=== PATIENT | female | born 1945 | race Caucasian/White ===

== ENCOUNTER → 2017-06-18 16:47 | Outpatient (CLI) | payer BC, SELFPAY ==
[2017-06-18 15:55] VITALS: BP 132/68; BMI 31.0
--- NOTE | 2017-06-18 16:49 | RAD_ITS ---
XR Chest 2 Views INDICATION: SHORTNESS OF BREATH, DYSPNEA COMPARISON: None FINDINGS: Heart size and pulmonary vascularity are within normal limits. The lungs are clear without evidence of airspace consolidation or pleural effusion. The osseous structures are grossly unremarkable. RAD/Chest PA and Lateral IMPRESSION: No radiographic evidence of acute intrathoracic disease. at 1925 Reported and signed by: Frances Lam MD Electronically Signed: Frances Lam MD at 20:58 EST Tel , Service support ,
== END ==
PROVIDERS: Family Provider Family Medicine; PCP Family Medicine; Visit Provider Internal Medicine Cardiovascular Disease
DX: R06.00 Dyspnea, unspecified (principal)
CPT/HCPCS: 71046

== ENCOUNTER → 2017-07-15 12:19 | Outpatient (CLI) | payer BC, SELFPAY ==
[2017-06-18 15:55] VITALS: BP 132/68; BMI 31.0
--- NOTE | 2017-07-15 12:21 | STEWCON_ITS ---
Reason For Study: DYSPNEA, CAD Stress Results Protocol: Stress Echocardiogram Maximum Predicted HR: 150 bpm Target HR: 128 bpm% Maximum Pr edicted HR: 87 % DurationHeart Rate Stage (mm:ss) (bpm) BPCom ment BASELINE 57 132/70 DEFINITY 4ML USED DURING STRESS CLYDE PROTOCOL- STAGE 1 3:00 10 8 136/74PO 99-100% CLYDE PROTOCOL- STAGE 2 3:00 13 1 138/76PO 99-100% RECOVERY 65 120/58 Stress Duration: 6:00 mm:ss Maximum Stress HR: 131 bpm Baseline Echocardiogram Findings Stress Echo Wall motion Data Resting WMIntermediate WMStress WM Resting Wall Motion Wall Motion Stress No regional wall motion No regional wall motion abnormalities noted. abnormalities noted. Ejection Fraction 40 %. Ejection Fraction 50 %. EKG Data Baseline ECG demonstrates normal sinus rhythm with a rate of 58 beats per minute. The resting blood pressure was 132/70. LBBB noted. The patient exercised according to the regular [place] protocol for a total duration of 6. The maximum heart rate attained was 131 beats per minute. This was 87% of maximum predicted heart rate. The patient exercised into stage 2 of the Lcyde protocol. During stress, there were no ST or T wave changes noted to suggest ischemia. Interpretation Summary AbNormal resting LV systolic function. Nonstenotic valves. With stress, the LV size decreased and all segments augmented normally. The LVEF increased from 40% to 45%. Negative for ischemia at 87% of MPHR and at 7 METS. patinet maintained sinus rhythm with LBBB throughout and no ovious wall motion abnormalities were noted.Contrast agent was used. Test was terminated due to leg fatigue abd good BP response was noted. Normal stress echo Ordering Physician: Mushtaq Edwards Referring Physician: Mushtaq Blum Performed By: Prema Schuster, LINDSEY, RVT
== END ==
PROVIDERS: Family Provider Family Medicine; PCP Family Medicine; Visit Provider Internal Medicine Cardiovascular Disease
DX: R06.00 Dyspnea, unspecified (principal); I25.10 Atherosclerotic heart disease of native coronary artery without angina pectoris
CPT/HCPCS: 93017; 93350; Q9957; A4216; C8928

== ENCOUNTER → 2017-07-22 07:50 | Outpatient (CLI) | payer BC, SELFPAY ==
[2017-06-18 15:55] VITALS: BP 132/68; BMI 31.0
--- NOTE | 2017-07-22 11:01 | PFT ---
INTRODUCTION: The patient is a 72-year-old female currently under the care of Dr. Edwards the presents for pulmonary function testing secondary to a diagnosis of dyspnea. Respiratory therapy reports good patient effort reports no other concerns. Bronchodilators were used during testing. INTERPRETATION: Forced expiration spirometry demonstrates no evidence of a large airways obstructive ventilatory defect. There was no significant response to aerosolized bronchodilators, based upon strict ATS criteria. Spirogram is of good quality and plateau normally. Body plethysmography was performed and reveals a trend towards hyperinflation. Diffusing capacity by single breath CO is within normal limits at 75% of predicted. IMPRESSION: These pulmonary function studies are essentially within normal limits. There are no previous PFTs available for comparison. Clinical correlation is recommended.
== END ==
PROVIDERS: Family Provider Family Medicine; PCP Family Medicine; Visit Provider Internal Medicine Cardiovascular Disease
DX: R06.00 Dyspnea, unspecified (principal)
CPT/HCPCS: 94060; 94726; 94729

== ENCOUNTER → 2017-12-01 08:05 | Outpatient (CLI) | payer MEDICARE, BC, SELFPAY ==
[2017-12-01 10:30] LABS: AST(SGOT) 32 U/L (15-37); Alanine Aminotransfer ALT/SGPT 56 U/L (13-56); Alkaline Phosphatase 79 U/L (45-117); Bilirubin, Direct 0.13 mg/dL (0.00-0.30); Cholesterol 146 mg/dL (200); High Density Lipoprotein 59 mg/dL; Triglycerides 143 mg/dL; Very Low Density Lipoprotein 29 mg/dL (5-40)
== END ==
PROVIDERS: Nurse Practitioner Family; Family Provider Family Medicine; PCP Family Medicine; Visit Provider Internal Medicine Cardiovascular Disease
DX: E78.5 Hyperlipidemia, unspecified (principal); Z79.899 Other long term (current) drug therapy
CPT/HCPCS: 36415; 80061; 80076

== ENCOUNTER → 2017-12-15 08:37 | Outpatient (CLI) | payer MEDICARE, BC, SELFPAY ==
[2017-12-15 10:50] LABS: Anion Gap 9 (5-15); BUN 15 mg/dL (7-18); BUN/Creat Ratio 19.2 RATIO (10-20); Calcium,Total 10.2 mg/dL (8.5-10.1); Chloride 105 mmol/L (98-107); Creatinine, Serum 0.78 mg/dL (0.55-1.02); EST Glomerular Filtration Rate 77 mL/min (>60); Est Glom Filt Rate - Afr Amer 94 mL/min (>60); Glucose 95 mg/dL (74-106); Potassium 3.8 mmol/L (3.5-5.1); Sodium Level 143 mmol/L (136-145); Thyroid Stim Hormone (TSH) 1.67 uIU/mL (0.358-3.74)
== END ==
PROVIDERS: Family Provider Family Medicine; PCP Family Medicine; Visit Provider Family Medicine
DX: I10 Essential (primary) hypertension (principal); E03.9 Hypothyroidism, unspecified
CPT/HCPCS: 36415; 80048; 84443

== ENCOUNTER → 2018-02-20 16:38 | Outpatient (CLI) | payer MEDICARE, BC, SELFPAY ==
--- NOTE | 2018-02-20 16:42 | RAD_ITS ---
STUDY: X-RAY CHEST REASON FOR EXAM: Female, 72 years old. post tussive emesis TECHNIQUE: Frontal and lateral views of the chest. COMPARISON: 06/18/2017 FINDINGS: Chronic appearing increased interstitial lung markings. There is no demonstrated pleural abnormality. Normal heart size. Normal mediastinum and preeti. Normal visualized pulmonary arteries. There is atherosclerotic calcification of the aortic arch with tortuosity. There are diffuse degenerative changes of the visualized thoracic spine. There is degenerative osteoarthritis of the bilateral shoulders. There is no demonstrated abnormality of the visualized soft tissue structures of the upper abdomen. RAD/Chest PA and Lateral IMPRESSION: There are no acute findings. Electronically Signed: Hill Kent MD at 17:48 EDT , Service support ,
== END ==
PROVIDERS: Family Provider Family Medicine; PCP Family Medicine; Referring Provider Family Medicine; Visit Provider Family Medicine
DX: R11.10 Vomiting, unspecified (principal)
CPT/HCPCS: 71046

== ENCOUNTER → 2018-03-27 10:17 | Outpatient (CLI) | payer MEDICARE, BC, SELFPAY ==
--- NOTE | 2018-03-27 10:20 | US_ITS ---
STUDY: THYROID ULTRASOUND REASON FOR EXAM: Female, 72 years old. Hypothyroidism. TECHNIQUE: Ultrasound evaluation of the thyroid was performed with real-time and static abdul-scale imaging. COMPARISON: September 25, 2013 FINDINGS: RIGHT LOBE: The right lobe of the thyroid gland measures 3.8 x 1.5 x 1.7 cm. There is a homogeneous echotexture. There is a grossly stable in size complex cyst within the right lobe of the gland which measures 1.3 x 0.7 x 0.8 cm. LEFT LOBE: The left lobe of the thyroid gland measures 4.3 x 1.2 x 1.6 cm. There is a homogeneous echotexture. There is a grossly stable minimally complex cystic 8.1 x 4.8 x 5.0 mm nodule. ISTHMUS: The isthmus measures 3 mm. There is a 3 x 3 x 4 mm minimally complex cystic nodule within the left isthmus that was not apparent on the prior examination. . US/Thyroid IMPRESSION: Stable bilateral minimally complex cystic thyroid nodules. New 4 mm cystic nodule within the isthmus that may reflect underlying colloid cyst. Electronically Signed: Ayleen Lou MD at 12:45 EST Tel , Service support ,
== END ==
PROVIDERS: Family Provider Family Medicine; PCP Family Medicine; Referring Provider Family Medicine; Visit Provider Family Medicine
DX: E03.9 Hypothyroidism, unspecified (principal)
CPT/HCPCS: 76536

== ENCOUNTER → 2018-05-25 09:28 | Outpatient (CLI) | payer MEDICARE, BC, SELFPAY ==
[2018-05-25 09:28] VITALS: BMI 31.0
[2018-05-25 12:18] LABS: AST(SGOT) 29 U/L (15-37); Alanine Aminotransfer ALT/SGPT 67 U/L (13-56); Albumin, Serum 3.9 g/dL (3.2-5.0); Alkaline Phosphatase 74 U/L (45-117); Bilirubin, Direct 0.08 mg/dL (0.00-0.30); Cholesterol 146 mg/dL (200); Globulin 3.1 g/dL (2.2-4.2); High Density Lipoprotein 56 mg/dL; Triglycerides 154 mg/dL; Very Low Density Lipoprotein 31 mg/dL (5-40)
== END ==
PROVIDERS: Family Provider Family Medicine; PCP Family Medicine; Referring Provider Nurse Practitioner Family; Visit Provider Nurse Practitioner Family
DX: E78.5 Hyperlipidemia, unspecified (principal)
CPT/HCPCS: 36415; 80061; 80076

== ENCOUNTER → 2018-05-29 11:00 | Outpatient (CLI) | payer MEDICARE, BC, SELFPAY ==
[2018-05-25 09:28] VITALS: BMI 31.0
[2018-05-29 12:34] LABS: Absolute Lymphocyte Count 1.79 X10^3/ul (0.83-4.51); Absolute Neutrophil Count 3.5 X10^3/uL (2.0-7.7); Basophil# 0.04 X10^3/uL; Basophil% 0.7 % (0-1); Eosinophil# 0.17 X10^3/uL; Eosinophils% 2.8 % (0-5); Hematocrit 39.6 % (37-47); Hemoglobin 12.9 g/dl (12.0-15.0); Lymphocyte # 1.79 X10^3/ul (4.0); Lymphocyte % 29.3 % (19-41); Mean Corp Hgb Conc 32.6 g/gl (32-36); Mean Corpuscular Hgb 31.7 pg (27.0-32.0); Mean Corpuscular Volume 97.3 fL (81-99); Mean Platelet Vol. 9.1 fl (6.2-12.0); Monocyte# 0.56 X10^3/uL; Monocyte% 9.2 % (0-10); Neutrophil # 3.54 X10^3/uL (2.7-7.7); Platelet Count 287 K/mm3 (150-450); RBC Distribution Width CV 14.3 % (11.6-14.6); RBC Distribution Width SD 49.3 fl (35.1-43.9); Red Blood Count 4.07 M/mm3 (4.2-5.4); White Blood Count 6.1 K/mm3 (4.4-11.0)
[2018-05-29 12:35] LABS: POSITIVE COUNT NO; POSITIVE DIFFERENTIAL NO; POSITIVE MORPHOLOGY NO
[2018-05-29 13:05] LABS: Free T3 2.5 pg/mL (2.18-3.98); T4 Total, Thyroxin 7.9 ug/dL (4.8-13.9); Thyroid Stim Hormone (TSH) 1.26 uIU/mL (0.358-3.74)
--- OUTSIDE RECORDS SUMMARY | 2018-08-02 20:51 | XMS RPT_ITS ---
:1945 Author Organization OHIP Support Name Relationship Address Phone MOTTER, CLINTON Unavailable [address] + [place] [address] R Unavailable Unavailable Unavailable MOTTER, CLINTON Unavailable [address] + [place] [address] R Unavailable Unavailable Unavailable MOTTER, CLINTON Unavailable [address] + [place] [address] R Unavailable Unavailable Unavailable MOTTER, CLINT[place] Unavailable [address] + [place] [address] R Unavailable Unavailable Unavailable MOTTER, [place] Unavailable [address] + [place] [address] R Unavailable Unavailable Unavailable MOTTER, CLINT[place] Unavailable [address] + [place] [address] R Unavailable Unavailable Unavailable MOTTER, CLINTON Unavailable [address] + [place] [address] R Unavailable Unavailable Unavailable [place] Unavailable [address] + [place] [address] MOTTER, CLINTON Unavailable [address] + [place] [address] [place] Unavailable [address] + [place] [address] MOTTER, CLINTON Unavailable [address] + [place] [address] [place] Unavailable [address] + [place] [address] MOTTER, CLINTON Unavailable [address] + [place] [address] [place] Unavailable [address] + [place] [address] MOTTER, CLINTON Unavailable [address] + [place] [address] [place] Unavailable [address] + [place] [address] MOTTER, [place] Unavailable . + [place] Unavailable [address] + [place] [address] MOTTER, [place] Unavailable . + [place] Unavailable [address] + [place] [address] MOTTER, [place] Unavailable . + [place], [place] Care Team Providers Name Role Phone Aida, Otis Alonzo Attending Unavailable Roof, Otis Alonzo Referring Unavailable Blum, Mushtaq Primary Care Unavailable Blum, Mushtaq Attending Unavailable Blum, Mushtaq Primary Care Unavailable SyTara keen Attending Unavailable Moodispaw, Mushtaq Attending Unavailable Blum, Mushtaq Referring Unavailable Blmu, Mushtaq Primary Care Unavailable Moodispaw, Mushtaq Attending Unavailable Blum, Mushtaq Primary Care Unavailable Moodispaw, Mushtaq Attending Unavailable Moodispaw, Mushtaq Referring Unavailable Blum, Mushtaq Primary Care Unavailable Moodispaw, Mushtaq Attending Unavailable Moodispaw, Mushtaq Referring Unavailable Blum, Mushtaq Primary Care Unavailable Tara Irby Attending Unavailable Blum, Mushtaq Referring Unavailable Mariano Smith D.O. Attending Unavailable Moodispaw, Mushtaq Referring Unavailable JorgeJeremy Attending Unavailable Moodispaw, Mushtaq Referring Unavailable Moodispaw, Mushtaq Attending Unavailable Moodispaw, Mushtaq Referring Unavailable Blum, Mushtaq Primary Care Unavailable Blum, Mushtaq Attending Unavailable Blum, Mushtaq Primary Care Unavailable Otis Hemphill Attending Unavailable Otis Hemphill Referring Unavailable Blum, Mushtaq Primary Care Unavailable Blum, Mushtaq Attending Unavailable Blum, Mushtaq Referring Unavailable Blum, Mushtaq Primary Care Unavailable PROBLEMS PROBLEMS DATE TYPE CONDITION / CODE ATTENDING STATUS SOURCE 12/17/2017 Unknown E03.9 - Mushtaq Blum Active [place] Hypothyroidism, Community unspecified / Hospital E03.9(ICD-10) Repository 12/17/2017 Unknown I10 - Essential BlumMushtaq emmanuel Active [place] (primary) Community hypertension / Hospital I10(ICD-10) Repository 12/17/2017 Unknown E78.5 - MoodMushtaq contreras Active [place] Hyperlipidemia, Community unspecified / Hospital E78.5(ICD-10) Repository 08/11/2017 Unknown R06.00 - Dyspnea, Mariano Smith, Active [place] unspecified / D.O. Community R06.00(ICD-10) Hospital Repository 08/12/2017 Unknown R06.02 - Shortness Jorge, [place] Active [place] of breath / Community R06.02(ICD-10) Hospital Repository PROCEDURES PROCEDURES No Procedure Records FoundRESULTS RESULTS CBC W/DIFF, AUTOMATED Collected: 05/29/2018 Status: F Source: [place] 11:02 AM [facility] REPOSITORY TYPE CODE TESTS RESULT OUT OF RANGE REFERENCE UNITS LAB L100.1000 4.4-11.0 K/mm3 Normal WBC 6.1 LAB L100.1200 4.2-5.4 M/mm3 Low RBC 4.07 LAB L100.1300 12.0-15.0 g/dl Normal HGB 12.9 LAB L100.1400 37-47 % Normal HCT 39.6 LAB L100.1500 81-99 fL Normal MCV 97.3 LAB L100.1600 27.0-32.0 pg Normal MCH 31.7 LAB L100.1700 32-36 g/gl Normal MCHC 32.6 LAB L100.1810 11.6-14.6 % Normal RDW CV 14.3 LAB L100.1820 35.1-43.9 fl High RDW SD 49.3 LAB L100.1900 150-450 K/mm3 Normal PLT 287 LAB L100.2000 6.2-12.0 fl Normal MPV 9.1 LAB L100.2100 47-70 % Normal NEUT% 58.0 LAB L100.2200 19-41 % Normal LY% 29.3 LAB L100.2300 0-10 % Normal MONO% 9.2 LAB L100.2400 0-5 % Normal EO% 2.8 LAB L100.2500 0-1 % Normal BASO% 0.7 LAB L100.2550 0.0-0.9 % Normal IM GRAN % 0.000 Result Comment: IG% - Immature Granulocytes (promyelocytes, myelocytes and metamyelocytes) > 1% indicates that a LEFT SHIFT is Present. LAB L100.2620 2.0-7.7 X10 3/uL Normal Absolute Neut 3.5 LAB L100.2720 0.83-4.51 X10 3/ul Normal Absolute Lymph 1.79 Performed By: #### L100.0100 #### [facility] [address] [place], [address] FREE T3 Collected: 05/29/2018 Status: F Source: [place] 11:02 AM [facility] REPOSITORY TYPE CODE TESTS RESULT OUT OF RANGE REFERENCE UNITS LAB L501.09170 2.18-3.98 pg/mL Normal FREE T3 2.5 Performed By: #### L501.00922, L501.9310, L501.9520 #### [facility] [address] [place], [address] T4 TOTAL, THYROXIN Collected: 05/29/2018 Status: F Source: [place] 11:02 AM [facility] REPOSITORY TYPE CODE TESTS RESULT OUT OF RANGE REFERENCE UNITS LAB L501.9310 4.8-13.9 ug/dL T4 Normal THYROXIN 7.9 Performed By: #### L501.31220, L501.9310, L501.9520 #### [facility] [address] [place], [address] THYROID STIM HORMONE Collected: 05/29/2018 Status: F Source: [place] (TSH) 11:02 AM [facility] REPOSITORY TYPE CODE TESTS RESULT OUT OF RANGE REFERENCE UNITS LAB L501.9520 0.358-3.74 uIU/mL Normal TSH 1.26 Performed By: #### L501.33396, L501.9310, L501.9520 #### [facility] [address] [place], [address] LIVER PROFILE Collected: 05/25/2018 Status: F Source: [place] 9:35 AM [facility] REPOSITORY TYPE CODE TESTS RESULT OUT OF RANGE REFERENCE UNITS LAB L501.1500 6.4-8.2 g/dL Normal T PROT 7.0 LAB L501.1800 3.2-5.0 g/dL Normal ALB 3.9 LAB L501.1950 2.2-4.2 g/dL Normal GLOB 3.1 LAB L501.4100 15-37 U/L Normal AST 29 LAB L501.4305 45-117 U/L Normal ALK P 74 LAB L501.4405 13-56 U/L High ALT 67 LAB L501.4600 0.20-1.00 mg/dL Normal T BILI 0.30 LAB L501.4700 0.00-0.30 mg/dL Normal D BILI 0.08 Performed By: #### L500.3400, L500.4100 #### [facility] [address] [place], [address] LIPID PROFILE Collected: 05/25/2018 Status: F Source: [place] 9:35 AM [facility] REPOSITORY TYPE CODE TESTS RESULT OUT OF RANGE REFERENCE UNITS LAB L501.4900 200 mg/dL Normal CHOL 146 Result Comment: <200 mg/dL Desirable 200-240 mg/dL Borderline >240 mg/dL High Risk LAB L501.5000 mg/dL Normal TRIG 154 Result Comment: The drugs N-Acetylcysteine and Metamizole may falsely depress this assay. Serum Triglycerides Reference Interval Normal <150 mg/dL Borderline high 150 - 199 mg/dL High 200 - 499 mg/dL Very High > or = 500 mg/dL LAB L501.6400 mg/dL Normal HDL 56 Result Comment: The drugs N-Acetylcysteine and Metamizole may falsely depress this assay. Reference Range HDL <40 mg/dL Low HDL Cholesterol HDL >or= 60 mg/dL High HDL Cholesterol LAB L501.6500 0-130 mg/dL Normal LDL 59 LAB L501.6600 5-40 mg/dL Normal VLDL 31 Performed By: #### L500.3400, L500.4100 #### [facility] [address] [place], [address] THYROID Observed: 03/27/2018 Status: F Source: [place] 10:21 AM [facility] REPOSITORY [facility] Imaging Services [address] [place] [address] Thyroid MR#: [id number] Acct: [id number] Name: DORIS GUTIERREZ Darrel Rep #: [id number] : 1945 F 72 From: Ayleen Lou MD PCP: Mushtaq Blum MD Status: REG CLI Study: Thyroid Date of Exam: 03/27/18 Exam# [id number] Ordering Dr: Mushtaq Blum MD STUDY: THYROID ULTRASOUND REASON FOR EXAM: Female, 72 years old. Hypothyroidism. TECHNIQUE: Ultrasound evaluation of the thyroid was performed with real-time and static abdul-scale imaging. COMPARISON: September 25, 2013 FINDINGS: RIGHT LOBE: The right lobe of the thyroid gland measures 3.8 x 1.5 x 1.7 cm. There is a homogeneous echotexture. There is a grossly stable in size complex cyst within the right lobe of the gland which measures 1.3 x 0.7 x 0.8 cm. LEFT LOBE: The left lobe of the thyroid gland measures 4.3 x 1.2 x 1.6 cm. There is a homogeneous echotexture. There is a grossly stable minimally complex cystic 8.1 x 4.8 x 5.0 mm nodule. ISTHMUS: The isthmus measures 3 mm. There is a 3 x 3 x 4 mm minimally complex cystic nodule within the left isthmus that was not apparent on the prior examination. . US/Thyroid IMPRESSION: Stable bilateral minimally complex cystic thyroid nodules. New 4 mm cystic nodule within the isthmus that may reflect underlying colloid cyst. Electronically Signed: Ayleen Lou MD at 12:45 EST Tel , Service support , CC: Mushtaq Blum MD Export Documents Clerk: Signed CHEST PA AND LATERAL Observed: 02/20/2018 Status: F Source: [place] 4:42 PM [facility] REPOSITORY [facility] [place] [address] Chest PA and Lateral MR#: [id number] Acct: [id number] Name: DORIS GUTIERREZ Rep #: [id number] : 1945 F 72 From: Hill Kent MD PCP: Mushtaq Blum MD Status: REG CLI Study: Chest PA and Lateral Date of Exam: 02/20/18 Exam# [id number] Ordering Dr: Otis Hemphill MD STUDY: X-RAY CHEST REASON FOR EXAM: Female, 72 years old. post tussive emesis TECHNIQUE: Frontal and lateral views of the chest. COMPARISON: 06/18/2017 FINDINGS: Chronic appearing increased interstitial lung markings. There is no demonstrated pleural abnormality. Normal heart size. Normal mediastinum and preeti. Normal visualized pulmonary arteries. There is atherosclerotic calcification of the aortic arch with tortuosity. There are diffuse degenerative changes of the visualized thoracic spine. There is degenerative osteoarthritis of the bilateral shoulders. There is no demonstrated abnormality of the visualized soft tissue structures of the upper abdomen. RAD/Chest PA and Lateral IMPRESSION: There are no acute findings. Electronically Signed: Hill Kent MD at 17:48 EDT , Service support , CC: Otis Hemphill MD; Mushtaq Blum MD Export Documents Clerk: Signed CARDIOLOGY VISIT Observed: 12/24/2017 Status: F Source: [place] REPORT 4:39 PM [facility] REPOSITORY [facility] [address] [place] [address]. [address] [place] [address] OFFICE VISIT Date of Service: 12/24/17 MR#: [id number] Acct: [id number] Name: DORIS GUTIERREZ Rep #: [id number] : 1945 Provider: Tara Irby Age/Sex: 72/F Location: [facility] Status: Signed HPI HPI Details: DORIS GUTIERREZ, is a 72 F who presents to the office today for a cardiovascular follow up. Patient has a history of coronary artery disease with stenting to her LAD in September of 2011. She also has a LBBB. Patient also has hypertension and hyperlipidemia. From a cardiac standpoint, patient is doing well. She does not have any chest discomfort/heaviness/tightness. Her exercise tolerance is stable for her age. She does not have any worsening symptoms of shortness of breath. Although she does feel occasionally feel SOB at rest and with exertion. This has been an ongoing issues and we have done multiple test for this. Her PCP started her on allergy medicine this past week. She does not have any orthopnea. She denies PND. She does not have any symptoms of congestive heart failure. She does not have any palpitations that she is aware of. She does not have any lightheadedness or dizziness. She does not have any near-syncope or syncope. She does not have any lower extremity edema. She does not have any symptoms of claudication. Pt has questions regarding her tests. Reviewed all of her tests in detail that she has had over the last year. Intake Vital Signs12/24/17 Height 5 ft 1 in 12/24/17 Weight: 166 lb 12/24/17 Body Mass Index (BMI) 31.4 12/24/17 Blood Pressure 120/60 12/24/17 Blood Pressure Location Lt brachial 12/24/17 Blood Pressure Position Sitting Intake Visit Reasons: 6 M FU Scada Engineer Required: No Accompanied by: none Is patient in pain?: No Allergies No Known Allergies Allergy (Verified 12/24/17 15:27) Medications Alendronate Sodium [Fosamax] 70 mg PO Q7D@0700 07/08/16 [History Confirmed 12/24/17] Aspirin E.C. [Ecotrin] 81 mg PO DAILY@0800 07/08/16 [History Confirmed 12/24/17] Citalopram Hydrobromide [Celexa] 20 mg PO DAILY 07/08/16 [History Confirmed 12/24/17] Cyanocobalamin (Vitamin B-12) [Vitamin B-12] 1,000 mcg PO DAILY 07/08/16 [History Confirmed 12/24/17] Levothyroxine [Synthroid] 50 mcg PO DAILY 07/08/16 [History Confirmed 12/24/17] Multivitamin [Multiple Vitamins] 1 ea PO DAILY 07/08/16 [History Confirmed 12/24/17] Lactobacillus acidophilus capsule 100 mg PO QDAY 06/18/17 [History Confirmed 12/24/17] lansoprazole 15 mg capsule,delayed release 15 mg PO QDAY 06/18/17 [History Confirmed 12/24/17] clopidogrel 75 mg tablet 75 mg PO DAILY #90 tab 12/09/17 [Rx Confirmed 12/24/17] losartan 50 mg tablet 50 mg PO BID #180 tab 12/09/17 [Rx Confirmed 12/24/17] atorvastatin 20 mg tablet 20 mg PO QHS #90 tab 12/24/17 [Rx Confirmed 12/24/17] cetirizine 10 mg tablet 10 mg PO QDAY PRN tab 12/24/17 [History Confirmed 12/24/17] hydrochlorothiazide 25 mg tablet 25 mg PO DAILY #90 tab 12/24/17 [Rx Confirmed 12/24/17] PFSH Medical History Presence of stent in coronary artery (Chronic 09/2011) Atherosclerotic heart disease of [place] coronary artery without angina pectoris (Chronic) Sinus bradycardia (Chronic) Left bundle branch block (Chronic) Hypertension (Chronic) Hyperlipidemia (Chronic) Family history of premature coronary heart disease (Chronic) Fatigue (Chronic) Edema (Chronic) Dyspnea, unspecified (Chronic) Bradycardia (Chronic) Angina pectoris (Chronic) Abnormal electrocardiogram (Chronic) Family history of hypertension (Acute) Family history of ischemic heart disease (Acute) Abnormal electrocardiogram during exercise stress test (Inactive) CAD (coronary artery disease) (Inactive) Family history of hypertension (Inactive) Family history of ischemic heart disease (Inactive) care home use of drug (Inactive) Surgical History Postsurgical percutaneous transluminal coronary angioplasty (PTCA) status (Chronic) History of cholecystectomy (Resolved) History of tonsillectomy and adenoidectomy (Resolved) History of total hysterectomy (Resolved) Hx of appendectomy (Resolved) Family History Father Myocardial infarction Mother Sudden cardiac Brother Sudden cardiac Myocardial infarction Brother CAD (coronary artery disease) Hx of CABG Brother CAD (coronary artery disease) Hx of CABG Brother Presence of permanent cardiac pacemaker Social History Smoking Status: Never smoker alcohol intake: never substance use type: does not use ROS Const Const: Negative for weakness, fatigue, fever(s) or headache(s) Eyes Eyes: Negative for blind spots, loss of peripheral vision or transient loss of vision ENT ENT: Negative for headache(s), dizziness, tinnitus or Nosebleed/epistaxis Cardio Chest Pain: No Palpitations: No Edema: None Muscle aches with walking: None Resp Respiratory: Positive for SOB with activity; negative for SOB at rest, SOB orthopnea\SOB lying down or Cough GI GI: Negative nausea, vomiting, heartburn or vomiting blood/hematemesis : Negative for hematuria Musc Musc: Negative for muscle aches/ myalgia Neuro Neuro: Negative for weakness, headache(s), dizziness, near syncope, syncope, lightheadedness or orthostatic symptoms Marek Hematologic/Lymphatic: Negative for easy bleeding Endo Endo: Negative for fatigue Cardiology Exam Const Appearance: cooperative, no acute distress and well developed Orientation: alert, awake and oriented x3 Head Head: normocephalic and atraumatic Mouth: moist mucous membranes Eyes General: appearance normal, both eyes and all related structures Conjunctivae: conjunctivae normal Pupils: PERRL EOM: EOM intact bilaterally Neck Neck: normal visual inspection, no lymphadenopathy and no JVD Carotids: Negative bruit Neck Mass: Negative Neck mass Chest Chest inspection: normal inspection of the chest and symmetric chest movement Auscultation: Bilateral: Clear to Auscultation Cardio Palpation: normal PMI Rate: regular rate Rhythm: regular rhythm Heart sounds: S1 normal and S2 normal; negative rub, gallop or murmur GI GI: normal to inspection, soft, no hepatosplenomegaly and bowel sounds present; negative tender Neuro General: alert, awake, oriented x3, CN's II-XI intact bilaterally and moves all extremities Extremities Pulses: Normal: Right Posterior Tibial Pulse, Left Posterior Tibial Pulse, Right Radial Pulse, Left Radial Pulse Lower Extremity Edema: None: Bilateral Psych Psychological: normal affect Supplemental Info Heart cath from June 2016 showed elevated left ventricular end-diastolic pressure compatible with decreased diastolic compliance, normal left ventricular size, wall motion, and systolic function, estimated ejection fraction 60%, 25% eccentric appearing stenosis of left main coronary artery, proximal most stent of LAD patent with minimal luminal irregularities, remainder a LAD/diagonal branch system noted to have minimal luminal irregularities, minimal luminal irregularities of left circumflex, right coronary artery large dominant vessel with minimal luminal irregularities, and moderate mitral valve regurgitation which was partly catheter induced. Stress echo in 2018 was negative for ischemia at a moderate workload. Echocardiogram in 2018 demonstrated Left ventricular systolic function is normal. The estimated ejection fraction is 60 %. The left atrium is mildly enlarged. Moderate (2+) mitral valve insufficiency. Mild (1+) tricuspid valve insufficiency. Mild focal aortic valve calcification. Mild (1+) aortic valve insufficiency. Trivial pulmonic valve insufficiency. Right ventricular systolic pressure estimated to be 24 mmHg. Echocardiogram from June 2016 showed estimated ejection fraction 60%, mildly enlarged left atrium, mild to moderate mitral valve insufficiency, mild tricuspid valve insufficiency, mild focal aortic valve calcification, trivial aortic valve insufficiency, trivial pulmonic valve insufficiency, RVSP of 37 mmHg, and transmitral diastolic flow velocity suggestive of diastolic dysfunction. Assessment AND Plan 1. Atherosclerosis of [place] coronary artery of [place] heart without angina pectoris I25.10 PTCA/Stent LAD 09/20 Plan Stable, from a cardiac standpoint patient does not have any symptoms of angina. We recommend that they continue with current aggressive medical management and risk factor modification. 2. Essential hypertension I10 Plan Blood pressure is well controlled on current medications, we do not recommend any changes at this time. Nose 30 pills several refills and his neurologist 3. Hyperlipidemia, unspecified hyperlipidemia type E78.5 Plan Recent lipid profile demonstrates total cholesterol 146, HDL HDL 59, LDL 58. Will continue to monitor. Will not make any adjustments. 4. Left bundle branch block I44.7 Plan Stable, will continue to monitor. Plan Detail Other Medications New: Additional Comments Thank you for allowing us to participate in the patients plan of care, if you have any questions please do not hesitate to call. This note was generated using a voice recognition system and there may be incorrect words, spelling or punctuation that were not noted when reviewing the office note prior to saving. As well Follow Up 1 Year (PFM) Coding Level of Care Code Off vis,est,level 3 Diagnoses Atherosclerosis of [place] coronary artery of [place] heart without angina pectoris I25.10 [place] vs. transplanted heart: [place] heart Essential hypertension I10 Hypertension type: essential hypertension Hyperlipidemia, unspecified hyperlipidemia type E78.5 Hyperlipidemia type: unspecified Left bundle branch block I44.7 Coding Level of Care Code Off vis,est,level 3 Diagnoses Atherosclerosis of [place] coronary artery of [place] heart without angina pectoris I25.10 [place] vs. transplanted heart: [place] heart Essential hypertension I10 Hypertension type: essential hypertension Hyperlipidemia, unspecified hyperlipidemia type E78.5 Hyperlipidemia type: unspecified Left bundle branch block I44.7 12/24/17 1938 <Electronically signed by Tara DARDEN> Date Tara Rhodes Signature: Date (if applicable) CC: Mushtaq Blum MD BASIC METABOLIC Collected: 12/15/2017 Status: F Source: [place] PROFILE (BMP) 8:38 AM [facility] REPOSITORY TYPE CODE TESTS RESULT OUT OF RANGE REFERENCE UNITS LAB L501.0100 74-106 mg/dL Normal GLU 95 Result Comment: Please note revised GLUCOSE reference range effective 2017. LAB L501.1000 7-18 mg/dL Normal BUN 15 LAB L501.1100 0.55-1.02 mg/dL Normal CREAT,SERUM 0.78 Result Comment: The validity of the calculated GFR AND GFRAA in patients over 70 years has not been determined. Clinical correlation is essential. LAB L501.1110 >60 mL/min Normal EST GFR 77 Result Comment: Non- GFR Calc LAB L501.1115 >60 mL/min Normal EST GFR - AA 94 Result Comment: GFR Calc LAB L501.1300 10-20 RATIO Normal BUN/CRE 19.2 LAB L501.2200 8.5-10.1 mg/dL High CA 10.2 LAB L501.5300 136-145 mmol/L NA Normal 143 LAB L501.5600 3.5-5.1 mmol/L K Normal 3.8 LAB L501.5900 98-107 mmol/L CL Normal 105 LAB L501.6100 21.0-32.0 mmol/L Normal CO2 29.0 LAB L501.6200 5-15 Normal GAP 9 Performed By: #### L500.2500, L501.9520 #### [facility] [address] [place], [address] THYROID STIM HORMONE Collected: 12/15/2017 Status: F Source: [place] (TSH) 8:38 AM [facility] REPOSITORY TYPE CODE TESTS RESULT OUT OF RANGE REFERENCE UNITS LAB L501.9520 0.358-3.74 uIU/mL Normal TSH 1.67 Performed By: #### L500.2500, L501.9520 #### [facility] [address], [place], [id number] LIVER PROFILE Collected: 12/01/2017 Status: F Source: [place] 8:21 AM [facility] REPOSITORY TYPE CODE TESTS RESULT OUT OF RANGE REFERENCE UNITS LAB L501.1500 6.4-8.2 g/dL Normal T PROT 7.0 LAB L501.1800 3.2-5.0 g/dL Normal ALB 4.0 LAB L501.1950 2.2-4.2 g/dL Normal GLOB 3.0 LAB L501.4100 15-37 U/L Normal AST 32 LAB L501.4305 45-117 U/L Normal ALK P 79 LAB L501.4405 13-56 U/L Normal ALT 56 LAB L501.4600 0.20-1.00 mg/dL Normal T BILI 0.50 LAB L501.4700 0.00-0.30 mg/dL Normal D BILI 0.13 Performed By: #### L500.3400, L500.4100 #### [facility] [address], [place], [id number] LIPID PROFILE Collected: 12/01/2017 Status: F Source: [place] 8:21 [facility] REPOSITORY TYPE CODE TESTS RESULT OUT OF RANGE REFERENCE UNITS LAB L501.4900 200 mg/dL Normal CHOL 146 Result Comment: <200 mg/dL Desirable 200-240 mg/dL Borderline >240 mg/dL High Risk LAB L501.5000 mg/dL Normal TRIG 143 Result Comment: The drugs N-Acetylcysteine and Metamizole may falsely depress this assay. Serum Triglycerides Reference Interval Normal <150 mg/dL Borderline high 150 - 199 mg/dL High 200 - 499 mg/dL Very High > or = 500 mg/dL LAB L501.6400 mg/dL Normal HDL 59 Result Comment: The drugs N-Acetylcysteine and Metamizole may falsely depress this assay. Reference Range HDL <40 mg/dL Low HDL Cholesterol HDL >or= 60 mg/dL High HDL Cholesterol LAB L501.6500 0-130 mg/dL Normal LDL 58 LAB L501.6600 5-40 mg/dL Normal VLDL 29 Performed By: #### L500.3400, L500.4100 #### [facility] [address] [place], [address] PULMONARY FUNCTION Observed: 07/22/2017 Status: F Source: [place] TEST 11:04 AM [facility] REPOSITORY [facility] Pulmonary Services/Neurology [address] [place] [address] MR#: [id number] Acct: [id number] Name: DORIS GUTIERREZ Rep #: [id number] : 1945 72 From: Mariano Smith DO Referring Dr: Grace SALDANA,Mushtaq Status: REG CLI Ordering Dr: Date: Location: [facility] Sex: F C INTRODUCTION: The patient is a 72-year-old female currently under the care of Dr. Edwards the presents for pulmonary function testing secondary to a diagnosis of dyspnea. Respiratory therapy reports good patient effort reports no other concerns. Bronchodilators were used during testing. INTERPRETATION: Forced expiration spirometry demonstrates no evidence of a large airways obstructive ventilatory defect. There was no significant response to aerosolized bronchodilators, based upon strict ATS criteria. Spirogram is of good quality and plateau normally. Body plethysmography was performed and reveals a trend towards hyperinflation. Diffusing capacity by single breath CO is within normal limits at 75% of predicted. IMPRESSION: These pulmonary function studies are essentially within normal limits. There are no previous PFTs available for comparison. Clinical correlation is recommended. 07/22/171103 <Electronically signed by Mariano Smith DO> Date Mariano Smith DO CC: Mushtaq Edwards MD; Mushtaq Blum MD Date Dictated: 07/22/171100 Date Transcribed: 07/22/171100 Export Documents Clerk: VONNIE Signed STRESS TEST ECHO W/ Observed: 07/15/2017 Status: F Source: [place] CONTRAST 4:47 PM [facility] REPOSITORY [facility] Cardiovascular Services [address] [place] [address] Stress Test Echo W/Contrast MR#: [id number] Acct: [id number] Name: DORIS GUTIERREZ Rep #: [id number] : 1945 72 From: Jeremy Patel MD Primary Care: Mushtaq Blum MD Status: REG CLI Ordering Dr: Mushtaq Edwards MD Sex: F C Reason For Study: DYSPNEA, CAD Stress Results Protocol: Stress Echocardiogram Maximum Predicted HR: 150 bpm Target HR: 128 bpm% Maximum Pr edicted HR: 87 % DurationHeart Rate Stage (mm:ss) (bpm) BPCom ment BASELINE 57 132/70 DEFINITY 4ML USED DURING STRESS CLYDE PROTOCOL- STAGE 1 3:00 10 8 136/74PO 99-100% CLYDE PROTOCOL- STAGE 2 3:00 13 1 138/76PO 99-100% RECOVERY 65 120/58 Stress Duration: 6:00 mm:ss Maximum Stress HR: 131 bpm Baseline Echocardiogram Findings Stress Echo Wall motion Data Resting WMIntermediate WMStress WM Resting Wall Motion Wall Motion Stress No regional wall motion No regional wall motion abnormalities noted. abnormalities noted. Ejection Fraction 40 %. Ejection Fraction 50 %. EKG Data Baseline ECG demonstrates normal sinus rhythm with a rate of 58 beats per minute. The resting blood pressure was 132/70. LBBB noted. The patient exercised according to the regular [place] protocol for a total duration of 6. The maximum heart rate attained was 131 beats per minute. This was 87% of maximum predicted heart rate. The patient exercised into stage 2 of the Clyde protocol. During stress, there were no ST or T wave changes noted to suggest ischemia. Interpretation Summary AbNormal resting LV systolic function. Nonstenotic valves. With stress, the LV size decreased and all segments augmented normally. The LVEF increased from 40% to 45%. Negative for ischemia at 87% of MPHR and at 7 METS. patinet maintained sinus rhythm with LBBB throughout and no ovious wall motion abnormalities were noted.Contrast agent was used. Test was terminated due to leg fatigue abd good BP response was noted. Normal stress echo Ordering Physician: Mushtaq Edwards Referring Physician: Mushtaq Blum Performed By: Prema Schuster, SAMUELCS, RVT 07/15/17 1647 Date Jeremy Patel MD CC: Mushtaq Edwards MD; Mushtaq Blum MD Date Dictated: 07/15/17 1311 Date Transcribed: 07/15/171646 Export Documents Clerk: Signed CARDIOLOGY VISIT Observed: 06/18/2017 Status: F Source: [place] REPORT 5:35 PM [facility] REPOSITORY [facility] [address] [place] [address] OFFICE VISIT Date of Service: 06/18/17 MR#: [id number] Acct: [id number] Name: DORIS GUTIERREZ Rep #: [id number] : 1945 Provider: Mushtaq Edwards MD Age/Sex: 72/F [place] [facility] [place]: Signed HPI HPI Details: DORIS GUTIERREZ, is a 72 F who presents to the office today for outpatient cardiovascular follow-up of her history of underlying CAD, PCI, mitral valve regurgitation, hyperlipidemia, and hypertension. The patient states that she does not appear to have ongoing chest discomfort. She notes her main concern is shortness of breath and dyspnea and fatigue. She denies orthopnea, PND, or peripheral pitting edema. There has been no near syncope or syncope. She recently underwent evaluation of her lipid profile. Her lipid profile appeared to be under good control. As you recall she had a transthoracic echocardiogram performed on 06/27/2016. The results are as noted below. Interpretation Summary Left ventricular systolic function is normal. The estimated ejection fraction is 60 %. The left atrium is mildly enlarged. Mild-Moderate (1-2+) mitral valve insufficiency. Mild tricuspid valve insufficiency. Mild focal aortic valve calcification. Trivial aortic valve insufficiency. Trivial pulmonic valve insufficiency. Right ventricular systolic pressure estimated to be 37 mmHg. Transmitral diastolic flow velocities suggest diastolic dysfunction (pseudonormal pattern). She had a stress test performed on 06/29/2014. This was a pharmacologic stress nuclear imaging study. The study was read as normal with no myocardial perfusion changes consider diagnostic for stress-induced myocardial ischemia. Her gated LVEF was 71%. She had a diagnostic cardiac catheterization performed on 07/09/2016. The results are as noted below. Final impression: 1. Elevated left ventricular end-diastolic pressure compatible decreased diastolic compliance 2. Left ventricle: A. Normal left ventricular size, wall motion, and systolic function B. Estimated LVEF is 60% 3. Left main coronary artery: A. Distal calcification B. Distal 25% eccentric appearing stenosis 4. Left anterior descending coronary artery: A. Proximal stent: Patent: Minimal luminal irregularities B. Remainder of the LAD/diagonal branching system: Minimal luminal irregularities 5. Left circumflex coronary artery: A. Minimal luminal irregularity 6. Right coronary artery: A. Large dominant vessel B. Minimal luminal irregularities 7. Mitral valve: A. Moderate mitral valve regurgitation: Partially catheter induced Her previous PCI procedure was performed at [facility] on 09/25/2011. The results are as noted below. Impression: Successful stenting and successful angioplasty of the 85% stenosis in the proximal to mid left anterior descending artery. She has undergone evaluation past with chest x-ray and PFTs- remote. She has not had these performed recently. Intake Vital Signs06/18/17 Height 5 ft 1 in 06/18/17 Weight: 164 lb 6 oz 06/18/17 Body Mass Index (BMI) 31.0 06/18/17 Blood Pressure 132/68 Intake Visit Reasons: 6 M FU Allergies No Known Allergies Allergy (Verified 06/18/17 15:55) Medications Alendronate Sodium [Fosamax] 70 mg PO Q7D@0700 07/08/16 [History Confirmed 06/18/17] Aspirin E.C. [Ecotrin] 81 mg PO DAILY@0800 07/08/16 [History Confirmed 06/18/17] Atorvastatin Calcium [Lipitor] 20 mg PO QHS 07/08/16 [History Confirmed 06/18/17] Citalopram Hydrobromide [Celexa] 20 mg PO DAILY 07/08/16 [History Confirmed 06/18/17] Clopidogrel Bisulfate [Plavix] 75 mg PO DAILY 07/08/16 [History Confirmed 06/18/17] Cyanocobalamin (Vitamin B-12) [Vitamin B-12] 1,000 mcg PO DAILY 07/08/16 [History Confirmed 06/18/17] Hydrochlorothiazide [Hctz] 25 mg PO DAILY 07/08/16 [History Confirmed 06/18/17] Levothyroxine [Synthroid] 50 mcg PO DAILY 07/08/16 [History Confirmed 06/18/17] Multivitamin [Multiple Vitamins] 1 ea PO DAILY 07/08/16 [History Confirmed 06/18/17] losartan 50 mg tablet 50 mg PO BID #180 tab 06/05/17 [Rx Confirmed 06/18/17] Lactobacillus acidophilus capsule 100 mg PO QDAY 06/18/17 [History Confirmed 06/18/17] azithromycin 250 mg tablet 250 mg PO QDAY tab 06/18/17 [History Confirmed 06/18/17] benzonatate 100 mg capsule 100 mg PO TID PRN 06/18/17 [History Confirmed 06/18/17] lansoprazole 15 mg capsule,delayed release 15 mg PO QDAY 06/18/17 [History Confirmed 06/18/17] [facility] Medical History Presence of stent in coronary artery (Chronic 09/2011) Atherosclerotic heart disease of [place] coronary artery without angina pectoris (Chronic) Sinus bradycardia (Chronic) Left bundle branch block (Chronic) Hypertension (Chronic) Hyperlipidemia (Chronic) Family history of premature coronary heart disease (Chronic) Fatigue (Chronic) Edema (Chronic) Dyspnea, unspecified (Chronic) Bradycardia (Chronic) Angina pectoris (Chronic) Abnormal electrocardiogram (Chronic) Family history of hypertension (Acute) Family history of ischemic heart disease (Acute) Abnormal electrocardiogram during exercise stress test (Inactive) CAD (coronary artery disease) (Inactive) Family history of hypertension (Inactive) Family history of ischemic heart disease (Inactive) care home use of drug (Inactive) Surgical History Postsurgical percutaneous transluminal coronary angioplasty (PTCA) status (Chronic) History of cholecystectomy (Resolved) History of tonsillectomy and adenoidectomy (Resolved) History of total hysterectomy (Resolved) Hx of appendectomy (Resolved) Family History Father Myocardial infarction Mother Sudden cardiac Brother Sudden cardiac Myocardial infarction Brother CAD (coronary artery disease) Hx of CABG Brother CAD (coronary artery disease) Hx of CABG Brother Presence of permanent cardiac pacemaker Social History Smoking Status: Never smoker alcohol intake: never substance use type: does not use ROS Const Const: Positive for fatigue (increased); negative for weakness, weight gain, weight loss, frequent falls or excessive sweating Eyes Eyes: Negative for change in vision, blurry vision or transient loss of vision ENT ENT: Negative for balance problems Cardio Chest Pain: No Palpitations: Positive for No Edema: None Muscle aches with walking: None Resp Respiratory: Positive for SOB with activity (intermittant, more frequent) and SOB at rest (intermittan, more frequent) Additional Details: Currently has bronchitis GI GI: Negative vomiting or vomiting blood/hematemesis : Negative for hematuria Musc Musc: Negative for balance problems, muscle aches/ myalgia, muscle weakness or joint pain Skin Skin: Negative non-healing lesions or rash Neuro Neuro: Negative for weakness, Negative for blurry vision, Positive for lightheadedness (when coughing bad), Negative for frequent falls, Negative for orthostatic symptoms Marek Hematologic/Lymphatic: Negative for easy bleeding Endo Endo: Positive for fatigue (increased); negative for excessive sweating Psych Psych: Negative for anxiety or depression Allergy Allergy/Immunology: Negative for hives, Negative for rash Cardiology Exam Const Appearance: cooperative, healthy appearing, comfortable, no acute distress, well developed and well groomed Nutritional Appearance: overweight Orientation: alert, awake and oriented x3 Head Head: normal to inspection, normocephalic and atraumatic Ears: hearing grossly normal bilaterally Nose: external nose normal Face and Sinus: face symmetric Mouth: oral mucosae normal Teeth and gingiva: fair dentition Eyes General: appearance normal, both eyes and all related structures Eyelids: eyelids normal Conjunctivae: conjunctivae normal Pupils: PERRL EOM: EOM intact bilaterally Neck Neck: normal visual inspection, full ROM and no lymphadenopathy Carotids: normal carotid upstroke Chest Chest inspection: normal inspection of the chest and symmetric chest movement Auscultation: Bilateral: Clear to Auscultation Cardio Palpation: normal PMI Rate: regular rate Rhythm: regular rhythm Heart sounds: S1 normal and S2 normal GI GI: normal to inspection, soft and no hepatosplenomegaly Neuro General: alert, awake and oriented x3 Skin Skin: no rashes or lesions noted Extremities Pulses: Normal: Right Radial Pulse, Left Radial Pulse Lower Extremity Edema: None: Bilateral Psych Psychological: normal affect Assessment AND Plan 1. Atherosclerosis of [place] coronary artery of [place] heart without angina pectoris I25.10 PTCA/Stent LAD 09/20 Plan At the present time there is concern as to whether or not her shortness of breath/dyspnea and fatigue is related to cardiovascular disease with her underlying CAD or her mitral valve disease process versus being related to a separate pulmonary disease process. From a cardiac standpoint she will have a follow-up exercise tolerance test/imaging study. This will be an attempted a stress echocardiogram to evaluate her functional status, left ventricular wall motion and systolic function, and her mitral valve regurgitation. From a noncardiac status this will be to further evaluate her pulmonary status. This will be of the chest x-ray and pulmonary function studies. 2. S/P PTCA (percutaneous transluminal coronary angioplasty) Z98.September, Rt AND Lt Stent to LAD Plan Her previous PCI procedure is as noted above. 3. Non-rheumatic mitral regurgitation I34.0 Plan She does have a history of MR. Again it is unclear whether this is playing a role in her shortness of breath and dyspnea. She will continue her current therapy and attempt will be made to assess her cardiopulmonary status as noted above. 4. Hyperlipidemia, unspecified hyperlipidemia type E78.5 Plan Her lipid history was reviewed. She will continue medical management and follow-up. 5. Essential hypertension I10 Plan Her blood pressure appears to be under good control. She will continue medical therapy and follow-up. 6. Shortness of breath R06.02; R06.00; R06.01 Plan Again there is concern of her shortness of breath/dyspnea being potentially related to her cardiovascular status versus a separate pulmonary issue. She will undergo further evaluation and care as noted above. Orders Orders: Plan Detail Additional Comments Thank you for allowing me to participate in the care of your patient. Please don't hesitate to call if any issues arise. This note was generated using a voice recognition system and there may be incorrect words, spelling or punctuation that were not noted when reviewing the office note prior to saving. Follow Up 6 Months (PA/ENVIRONMENTAL SERVICE AIDE) Coding Level of Care Code Off vis,est,level 4 Diagnoses Atherosclerosis of [place] coronary artery of [place] heart without angina pectoris I25.10 [place] vs. transplanted heart: [place] heart S/P PTCA (percutaneous transluminal coronary angioplasty) Z98.61 Non-rheumatic mitral regurgitation I34.0 Cardiac valve disease etiology: nonrheumatic Hyperlipidemia, unspecified hyperlipidemia type E78.5 Hyperlipidemia type: unspecified Essential hypertension I10 Hypertension type: essential hypertension Shortness of breath R06.02; R06.00; R06.01 Dyspnea type: shortness of breath Coding Level of Care Code Off vis,est,level 4 Diagnoses Atherosclerosis of [place] coronary artery of [place] heart without angina pectoris I25.10 [place] vs. transplanted heart: [place] heart S/P PTCA (percutaneous transluminal coronary angioplasty) Z98.61 Non-rheumatic mitral regurgitation I34.0 Cardiac valve disease etiology: nonrheumatic Hyperlipidemia, unspecified hyperlipidemia type E78.5 Hyperlipidemia type: unspecified Essential hypertension I10 Hypertension type: essential hypertension Shortness of breath R06.02; R06.00; R06.01 Dyspnea type: shortness of breath 06/18/17 1735 <Electronically signed by Mushtaq Edwards MD> Date Mushtaq Edwards MD Cosigner Signature: Date (if applicable) CC: Mushtaq Blum MD CHEST PA AND LATERAL Observed: 06/18/2017 Status: F Source: [place] 4:49 PM [facility] REPOSITORY [facility] Imaging Services [address] [place] [address] Chest PA and Lateral MR#: [id number] Acct: [id number] Name: DORIS GUTIERREZ Rep #: [id number] : 1945 F 72 From: Frances Lam MD PCP: Mushtaq Blum MD Status: REG CLI Study: Chest PA and Lateral Date of Exam: 06/18/17 Exam# [id number] Ordering Dr: Mushtaq Edwards MD XR Chest 2 Views INDICATION: SHORTNESS OF BREATH, DYSPNEA COMPARISON: None FINDINGS: Heart size and pulmonary vascularity are within normal limits. The lungs are clear without evidence of airspace consolidation or pleural effusion. The osseous structures are grossly unremarkable. RAD/Chest PA and Lateral IMPRESSION: No radiographic evidence of acute intrathoracic disease. at 2159 Reported and signed by: Frances Lam MD Electronically Signed: Frances Lam MD at 20:58 EST Tel , Service support , CC: Mushtaq Edwards MD; Mushtaq Blum MD Export Documents Clerk: Signed ALLERGIES ALLERGIES DATE TYPE / CODE NAME / CODE REACTION SEVERITY SOURCE 12/24/2017 Drug No Known Unknown [place] [facility] Allergy/4160 Allergies/F00 Hospital 42155(SNOMED 1696693(RXNOR Repository CT) M) ENCOUNTERS ENCOUNTERS ADMIT/DISCHARGE ACCOUNT ADMITTING ENCOUNTER LOCATION SOURCE NUMBER CLASS 05/29/2018 [id number] Ambulatory [place] [facility] ing:PLAB Repository 05/25/2018 [id number] Ambulatory [place] [facility] ing:MTLAB Repository 03/27/2018 [id number] Ambulatory [facility] ing: Repository 02/20/2018 [id number] Ambulatory [place] [facility] ing:MTRAD Repository 12/24/2017/ [id number] Ambulatory BMSBuilding:B [facility] [facility] 7 [facility] Repository 12/15/2017 [id number] Ambulatory [place] [facility] ing:MFPLAB Repository 12/01/2017 [id number] Ambulatory [place] [facility] ing:MTLAB Repository 07/22/2017 [id number] Ambulatory [place] [facility] ing:PSN Repository 07/22/2017 [id number] Ambulatory BMSBuilding:W [place] 6 [facility] Repository 07/15/2017 [id number] Ambulatory [place] [facility] ing:CVS Repository 07/15/2017 [id number] Ambulatory BMSBuilding:W [place] 3 [facility] Repository 06/18/2017 [id number] Ambulatory [facility] [facility] ing:RAD Repository 06/18/2017/ [id number] Ambulatory BMSBuilding:B [place] [facility] 0 [facility] Repository 06/18/2017 [id number] Ambulatory BMSBuilding:B [place] [facility] Repository PAYERS PAYERS ENCOUNTER GUARANTOR PAYER SUBSCRIBER SOURCE 05/29/2018 DORIS D Primary DORIS D [place] [id number] REJI Insurance:MEDICARE CHANDLERDOB: [facility] PART A [facility] [id number] [address]Zpy: Number: Repository [id number] (HP) Date:2018-05-29 05/29/2018 Secondary DORIS D [place] Insurance:ANTHEMPolic CHANDLERDOB: [facility] y Number: [id number] [id number] Repository Date:[id number] [address]EX: 05/29/2018 Tertiary NOT GIVENUNK [facility] Insurance:SELF PAY [facility] Number: Effective Repository Date:2018-05-29 05/25/2018 DORIS D Primary DORIS D [place] [id number] REJI Insurance:MEDICARE CHANDLERDOB: [facility] PART A [facility] [id number] [place] [address]Bgo: Number: Repository [id number] (HP) Date:2018-05-25 05/25/2018 Secondary DORIS D [place] Insurance:ANTHEMPolic CHANDLERDOB: [facility] y Number: [id number] [id number] Repository Date:1566-75-97FQ [address], [place] [address]IK: 05/25/2018 Tertiary NOT GIVENUNK [place] Insurance:SELF PAY [facility] Number: Effective Repository Date:2018-05-25 03/27/2018 DORIS D Primary DORIS D [place] [id number] REJI Insurance:MEDICARE CHANDLERDOB: [facility] PART A [facility] [id number] [address]Xdj: Number: Repository [id number] (HP) Date:2018-03-24 03/27/2018 Secondary DORIS D [place] Insurance:ANTHEMPolic CHANDLERDOB: Community y Number: [id number] [facility] [id number] Repository Date:5678-10-52KT [address], [place] [address]MU: 03/27/2018 Tertiary NOT GIVENUNK [place] Insurance:SELF PAY [facility] Number: Effective Repository Date:2018-03-24 02/20/2018 DORIS D Primary DORIS D [place] [id number] REJI Insurance:MEDICARE CHANDLERDOB: [facility], PART A olicy [id number] [address]Hyb: Number: Repository [id number] (HP) Date:2018-02-20 02/20/2018 Secondary DORIS D [place] Insurance:ANTHEMPolic CHANDLERDOB: Community y Number: [id number] [facility] [id number] Repository Date:4327-66-18SJ [address] [place] [address]LF: 02/20/2018 Tertiary NOT GIVENUNK [place] Insurance:SELF PAY [facility] Number: Effective Repository Date:2018-02-20 12/24/2017 DORIS D Primary DORIS D [place] [id number] REJI Insurance:MEDICARE CHANDLERDOB: [facility], PART A [facility] [id number] General Hospital [address]Yyt: Number: Repository [id number] () e Date:2017-06-18 12/24/2017 Secondary DORIS D [place] Insurance:ANTHEMPolic CHANDLERDOB: Community y Number: [id number] Hospital [id number] Repository Date:6867-35-64BU [address] [place] [address]VZ: 12/24/2017 Tertiary NOT GIVENUNK [place] Insurance:SELF PAY [facility] Number: Effective Repository Date:2017-12-24 12/15/2017 DORIS D Primary DORIS D [place] [id number] REJI Insurance:MEDICARE CHANDLERDOB: [facility] [id number] [facility] Hospital [address]Lnp: Number: Repository [id number] () Date:2017-12-15 12/15/2017 Secondary DORIS D [place] Insurance:ANTHEMPolic CHANDLERDOB: Community y Number: [id number] [facility] [id number] Repository Date:5195-16-81UK [address], [place] [address]QF: 12/15/2017 Tertiary NOT GIVENUNK [place] Insurance:SELF PAY [facility] Number: Effective Repository Date:2017-12-15 12/01/2017 DORIS D Primary DORIS D [place] [id number] REJI Insurance:MEDICARE CHANDLERDOB: [facility] [id number] Hospital [place] [address]Hgt: Number: Repository [id number] () Date:2017-12-01 12/01/2017 Secondary DORIS D [place] Insurance:ANTHEMPolic CHANDLERDOB: Community y Number: [id number] [facility] [id number] Repository Date:0406-11-24UP [address], [place] [address]BF: 12/01/2017 Tertiary NOT GIVENUNK [place] Insurance:SELF PAY [facility] Number: Effective Repository Date:2017-12-01 07/22/2017 DORIS D Primary DORIS D [place] [id number] [place] Insurance:ANTHEMPolic CHANDLERDOB: [facility], y Number: [id number] General Hospital [address]Hdv: [id number] Repository [phone] lala Date:3930-93-49VO () [address] [address]IW: 07/22/2017 Secondary NOT GIVENUNK [place] Insurance:SELF PAY [facility] Number: Effective Repository Date:2017-06-18 07/22/2017 DORIS D Primary DORIS D [place] [id number] [place] Insurance:ANTHEMPolic CHANDLERDOB: [facility], y Number: [id number] General Hospital [address]Ogj: [id number] Repository [phone] lala Date:1110-55-42JZ () [address], [place] [address]SW: 07/22/2017 Secondary NOT GIVENUNK [place] Insurance:SELF PAY [facility] Number: Effective Repository Date:2017-07-22 07/15/2017 DORIS D Primary DORIS D [place] [id number] [place] Insurance:ANTHEMPolic CHANDLERDOB: [facility], y Number: [id number] Hospital [place] [address]Rkh: [id number] Repository [phone] lala Date:1341-72-95ST () [address], [place] [address]PX: 07/15/2017 Secondary NOT GIVENUNK [place] Insurance:SELF PAY [facility] Number: Effective Repository Date:2017-06-18 07/15/2017 DORIS D Primary DORIS D [place] [id number] [place] Insurance:ANTHEMPolic CHANDLERDOB: [facility], y Number: [id number] Hospital [place] [address]Zzz: [id number] Repository [phone] lala Date:8752-26-66SV () [address] [address]ET: 07/15/2017 Secondary NOT GIVENUNK [place] Insurance:SELF PAY [facility] Number: Effective Repository Date:2017-07-15 06/18/2017 DORIS D Primary DORIS D [place] [id number] [place] Insurance:ANTHEMPolic CHANDLERDOB: [facility], y Number: [id number] [facility] [place] [address]Ldh: [id number] Repository [phone] lala Date:[id number] () [address] [address]PN: 06/18/2017 Secondary NOT GIVENUNK [place] Insurance:SELF PAY [facility] Number: Effective Repository Date:2017-06-18 06/18/2017 DORIS D Primary DORIS D [place] [id number] [place] Insurance:ANTHEMPolic CHANDLERDOB: [facility], y [facility]: [id number] [address]Ivx: [id number] Repository [phone] lala Date:[id number] () [id number] [address]TZ: 06/18/2017 Secondary NOT GIVENUNK [place] Insurance:SELF PAY [facility] Number: Effective Repository Date:2017-04-19 06/18/2017 Doris D Primary Doris D [place] [id number] [place] Insurance:ANTHEMPolic ChandlerDOB: [facility], y Number: [id number] [place] [address]Pyh: [id number] Repository lala Date:[id number] () [id number] [address]ZW: 06/18/2017 Secondary NOT GIVENUNK [place] Insurance:SELF PAY [facility]: Effective Repository Date:2017-06-18
== END ==
PROVIDERS: Family Provider Family Medicine; PCP Family Medicine; Visit Provider Family Medicine
DX: E03.9 Hypothyroidism, unspecified (principal); R53.83 Other fatigue
CPT/HCPCS: 36415; 84436; 84443; 84481; 85025

== ENCOUNTER → 2018-06-16 06:58 | Outpatient (CLI) | payer MEDICARE, BC, SELFPAY ==
[2018-05-25 09:28] VITALS: BMI 31.0
--- NOTE | 2018-06-16 07:11 | MRI_ITS ---
STUDY: MRI RIGHT KNEE REASON FOR EXAM: Right medial knee pain. TECHNIQUE: Standardized fat and water weighted pulse sequences were obtained in all 3 orthogonal planes. COMPARISON: None. FINDINGS: There is a flap tear of the medial meniscus with a displaced fragment in the medial gutter (proton-density coronal images 15-18). Normal hyaline cartilage of the medial femorotibial compartment. Normal medial femoral condyle and tibial plateau. There is periligamentous inflammation of the medial collateral ligament (T2 coronal image 17). Normal distal semimembranosus, gracilis and semitendinosus tendons. Normal lateral meniscus. Normal hyaline cartilage of the lateral femorotibial compartment. Normal lateral femoral condyle and tibial plateau. Normal proximal tibiofibular articulation. Normal lateral collateral (fibular) ligament. Normal popliteus tendon. Normal biceps femoris tendon. Normal anterior cruciate ligament (ACL). Normal posterior cruciate ligament (PCL). There is mild lateral subluxation of the patella (T2 axial image 11). Normal hyaline cartilage of the patellofemoral compartment. Normal medial and lateral patellar retinaculum. Normal quadriceps tendon. There is mild distal patellar tendinosis (T2 sagittal image 15). Normal Hoffa's fat pad. There is a [id number] sized joint effusion. There is a thin medial patellar plica. There is a popliteal cyst measuring 7.2 cm in length with mild extravasation of fluid (T2 sagittal images 7-11). There is a small enchondroma in the posterior aspect of the distal femoral metaphysis (T2 sagittal image 12) measuring 0.7 cm in AP dimension. MRI/Lower Ext Joint Only (Routine) IMPRESSION: Medial meniscal tear. Periligamentous inflammation of the medial collateral ligament. Mild lateral subluxation of the patella. Mild distal patellar tendinosis. Joint effusion. Popliteal cyst with mild extravasation of fluid. Small enchondroma in the distal femur. Electronically Signed: Brice Nash MD at 11:15 EST Tel , Service support ,
== END ==
PROVIDERS: Family Provider Family Medicine; PCP Family Medicine; Referring Provider Family Medicine; Visit Provider Family Medicine
DX: M25.569 Pain in unspecified knee (principal)
CPT/HCPCS: 73721

== ENCOUNTER → 2018-06-29 14:17 | Outpatient (CLI) | payer MEDICARE, BC, SELFPAY ==
[2018-05-25 09:28] VITALS: BMI 31.0
[2018-06-29 15:57] LABS: Anion Gap 8 (5-15); BUN 11 mg/dL (7-18); BUN/Creat Ratio 16.1 RATIO (10-20); Calcium,Total 10.4 mg/dL (8.5-10.1); Chloride 106 mmol/L (98-107); Creatinine, Serum 0.68 mg/dL (0.55-1.02); EST Glomerular Filtration Rate 90 mL/min (>60); Est Glom Filt Rate - Afr Amer 109 mL/min (>60); Glucose 87 mg/dL (74-106); Potassium 3.7 mmol/L (3.5-5.1); Sodium Level 139 mmol/L (136-145)
== END ==
PROVIDERS: Family Provider Family Medicine; PCP Family Medicine; Visit Provider Family Medicine
DX: Z00.00 Encounter for general adult medical examination without abnormal findings (principal)
CPT/HCPCS: 36415; 80048

== ENCOUNTER → 2018-07-02 11:35 | Outpatient (CLI) | payer MEDICARE, BC, SELFPAY ==
[2018-05-25 09:28] VITALS: BMI 31.0
--- NOTE | 2018-07-02 11:48 | EKG12_ITS ---
Test Reason : PRE-OP Blood Pressure : / mmHG Vent. Rate : 057 BPM Atrial Rate : 057 BPM P-R Int : 124 ms QRS Dur : 152 ms QT Int : 456 ms P-R-T Axes : 028 -31 099 degrees QTc Int : 443 ms Sinus bradycardia Left axis deviation Left bundle branch block Abnormal ECG Confirmed by DAVID SALDANA, GIL ([id number]), pictures editor VALERIE CANTU ([id number]) on 07/03/2018 8:05:19 AM Referred By: Donnell Rock Confirmed By:GIL HERNANDEZ MD
[2018-07-02 12:53] LABS: Hematocrit 43.3 % (37-47); Hemoglobin 14.3 g/dl (12.0-15.0); Mean Corpuscular Hgb 31.5 pg (27.0-32.0); Mean Corpuscular Volume 95.4 fL (81-99); Mean Platelet Vol. 9.7 fl (6.2-12.0); Platelet Count 278 K/mm3 (150-450); RBC Distribution Width CV 13.6 % (11.6-14.6); Red Blood Count 4.54 M/mm3 (4.2-5.4); White Blood Count 7.8 K/mm3 (4.4-11.0)
[2018-07-02 13:00] LABS: Scan Indicated on CBC? Y/N NO
[2018-07-02 13:36] LABS: Anion Gap 8 (5-15); BUN 16 mg/dL (7-18); BUN/Creat Ratio 23.8 RATIO (10-20); Calcium,Total 10.4 mg/dL (8.5-10.1); Chloride 105 mmol/L (98-107); Creatinine, Serum 0.67 mg/dL (0.55-1.02); EST Glomerular Filtration Rate 92 mL/min (>60); Est Glom Filt Rate - Afr Amer 111 mL/min (>60); Glucose 75 mg/dL (74-106); Potassium 3.8 mmol/L (3.5-5.1); Sodium Level 139 mmol/L (136-145)
== END ==
PROVIDERS: Family Provider Family Medicine; PCP Family Medicine; Referring Provider Physician Assistant; Visit Provider Physician Assistant
DX: Z01.818 Encounter for other preprocedural examination (principal); Z01.810 Encounter for preprocedural cardiovascular examination
CPT/HCPCS: 36415; 80048; 85027; 93005

== ENCOUNTER → 2018-10-08 07:09 | Outpatient (CLI) | payer MEDICARE, BC, SELFPAY ==
[2018-05-25 09:28] VITALS: BMI 31.0
--- NOTE | 2018-10-08 07:11 | BI_ITS ---
MAMMOGRAPHY - BILATERAL SCREENING REASON FOR EXAM: Female, 73 years old. Routine annual screening examination. PERTINENT HISTORY: Non-contributory. TECHNIQUE: Digital bilateral breast lourdes (3D mammographic acquisition) in the CC and MLO projections. 2-D mediolateral oblique (MLO) and craniocaudad (CC) views of both breasts were obtained. CAD: Full Field Digital Mammography with Computer Added Detection was performed. COMPARISON: Comparison is made with prior study dated December 02, 2017 and May 21, 2016. FINDINGS: Breast Composition: There are scattered areas of fibroglandular density. There are no dominant masses or suspicious calcifications. No other significant abnormalities are identified. There has been no significant change since the prior study. BI/SCREENING MAMM (CAD), BILAT IMPRESSION: Stable bilateral screening mammogram. Yearly follow-up mammogram recommended. (A) ASSESSMENT CATEGORY: BIRADS Category 1: Negative. A letter regarding these results will be sent to the patient by the facility within 30 days. Approximately 10% of breast cancers are not detected by mammography. A normal mammogram should not delay biopsy of a clinically suspicious abnormality. [id number] Electronically Signed: Josafat Corey, at 8:32 EDT , Service support ,
== END ==
PROVIDERS: Family Provider Family Medicine; PCP Family Medicine; Referring Provider Nurse Practitioner Family; Visit Provider Nurse Practitioner Family
DX: Z12.31 Encounter for screening mammogram for malignant neoplasm of breast (principal)
CPT/HCPCS: 77063; 77067

== ENCOUNTER → 2018-11-19 07:57 | Outpatient (CLI) | payer MEDICARE, BC, SELFPAY ==
[2018-05-25 09:28] VITALS: BMI 31.0
[2018-11-19 10:26] LABS: AST(SGOT) 34 U/L (15-37); Alanine Aminotransfer ALT/SGPT 67 U/L (13-56); Alkaline Phosphatase 79 U/L (45-117); Bilirubin, Direct 0.07 mg/dL (0.00-0.30); Cholesterol 142 mg/dL (200); Globulin 3.1 g/dL (2.2-4.2); High Density Lipoprotein 56 mg/dL; Protein, Total 7.1 g/dL (6.4-8.2); Triglycerides 128 mg/dL; Very Low Density Lipoprotein 26 mg/dL (5-40)
== END ==
PROVIDERS: Family Provider Family Medicine; PCP Family Medicine; Referring Provider Nurse Practitioner Family; Visit Provider Nurse Practitioner Family
DX: E78.5 Hyperlipidemia, unspecified (principal)
CPT/HCPCS: 36415; 80061; 80076

== ENCOUNTER → 2018-11-26 10:31 | Outpatient (CLI) | payer MEDICARE, BC, SELFPAY ==
[2018-05-25 09:28] VITALS: BMI 31.0
[2018-11-26 12:37] LABS: Anion Gap 4 (5-15); BUN 12 mg/dL (7-18); BUN/Creat Ratio 17.5 RATIO (10-20); Calcium,Total 10.3 mg/dL (8.5-10.1); Chloride 106 mmol/L (98-107); Creatinine, Serum 0.69 mg/dL (0.55-1.02); EST Glomerular Filtration Rate 90 mL/min (>60); Est Glom Filt Rate - Afr Amer 108 mL/min (>60); Glucose 93 mg/dL (74-106); Potassium 3.7 mmol/L (3.5-5.1); Sodium Level 140 mmol/L (136-145); Thyroid Stim Hormone (TSH) 1.14 uIU/mL (0.358-3.74)
== END ==
PROVIDERS: Family Provider Family Medicine; PCP Family Medicine; Referring Provider Family Medicine; Visit Provider Family Medicine
DX: E03.9 Hypothyroidism, unspecified (principal); I10 Essential (primary) hypertension
CPT/HCPCS: 36415; 80048; 84443

== ENCOUNTER → 2019-02-16 06:41 | Outpatient (CLI) | payer MEDICARE, BC, SELFPAY ==
[2019-02-01 13:58] VITALS: BMI 31.5
--- NOTE | 2019-02-16 11:07 | STRESSREP ---
Stress Test Report Date: 02-16-19 Procedure: Pharmacologic stress nuclear imaging study Indications: Chest pain; CAD; abnormal ECG/left bundle branch block Consent: Per the patient Procedure: The patient underwent pharmacologic (Regadenoson) evaluation with a peak heart rate of 82 beats per minute (55 %predicted maximal heart rate) and a peak blood pressure of 132/70 mmHg. The baseline ECG demonstrated sinus rhythm; left bundle branch block pattern. The peak pharmacologic ECG demonstrated no obvious ECG changes. There were no cardiac dysrhythmias pretest, during pharmacologic infusion, or recovery. There was no complaint of chest discomfort during pharmacologic infusion or recovery. The examination was discontinued secondary to completion of protocol. Impression: 1. Pharmacologic (Regadenoson) evaluation 2. Peak pharmacologic ECG with no obvious ECG changes. 3. There were no cardiac dysrhythmias pretest, during pharmacologic infusion, or recovery. 4. Nuclear images pending Myocardial perfusion imaging study: Technique: The patient was injected with 12.0 millicuries of technetium 99m Cardiolite and subsequently rest SPECT Cardiolite nuclear imaging was obtained in the horizontal long, vertical long, and short axis views. The patient underwent pharmacologic (Regadenoson) evaluation with a peak heart rate of 82 beats per minute (55 % percent predicted maximal heart rate) and a peak blood pressure of 132/70 mmHg. The patient was injected with 35.0 millicuries of technetium 99m Cardiolite and subsequently stress SPECT Cardiolite nuclear imaging was obtained in the horizontal long, vertical long, and short axis views. A gated Cardiolite study at peak stress was obtained. Interpretation: Rest and stress SPECT Cardiolite nuclear imaging status post realignment, normalization, and attenuation correction demonstrate the appearance of a small area of subtle diminished tracer uptake near the apical segments without significant change between rest and stress. There is end systolic thickening and brightening. The gated Cardiolite study demonstrates myocardial thickening and inward wall motion. The reported LVEF is 74 %. Impression: 1. Rest and stress SPECT currently nuclear imaging demonstrate myocardial perfusion changes appearing compatible with physiologic apical thinning with no myocardial perfusion changes considered diagnostic for associated stress-induced myocardial ischemia. 2. The gated Cardiolite study reports an LVEF of 74 %. This note was generated with [employer] software. It may contain incorrect words, spelling, and punctuation that were not noted in checking the note before signing.
== END ==
PROVIDERS: Family Provider Family Medicine; PCP Family Medicine; Referring Provider Internal Medicine Cardiovascular Disease; Visit Provider Internal Medicine Cardiovascular Disease
DX: I44.7 Left bundle-branch block, unspecified (principal); Z95.5 Presence of coronary angioplasty implant and graft
CPT/HCPCS: 78452; 93017; A9500; A4216; J2785

== ENCOUNTER → 2019-05-19 08:33 | Outpatient (CLI) | payer MEDICARE, BC, SELFPAY ==
[2019-02-01 13:58] VITALS: BMI 31.5
[2019-05-19 10:35] LABS: AST(SGOT) 50 U/L (15-37); Alanine Aminotransfer ALT/SGPT 101 U/L (13-56); Alkaline Phosphatase 80 U/L (45-117); Bilirubin, Direct 0.15 mg/dL (0.00-0.30); Cholesterol 151 mg/dL (200); Globulin 3.5 g/dL (2.2-4.2); High Density Lipoprotein 60 mg/dL; Protein, Total 7.5 g/dL (6.4-8.2); Triglycerides 108 mg/dL; Very Low Density Lipoprotein 22 mg/dL (5-40)
== END ==
PROVIDERS: Family Provider Family Medicine; PCP Family Medicine; Referring Provider Nurse Practitioner Family; Visit Provider Nurse Practitioner Family
DX: E78.5 Hyperlipidemia, unspecified (principal)
CPT/HCPCS: 36415; 80061; 80076

== ENCOUNTER → 2019-06-18 09:29 | Outpatient (CLI) | payer MEDICARE, BC, SELFPAY ==
[2019-02-01 13:58] VITALS: BMI 31.5
[2019-06-18 13:07] LABS: AST(SGOT) 51 U/L (15-37); Alanine Aminotransfer ALT/SGPT 113 U/L (13-56); Alkaline Phosphatase 73 U/L (45-117); Bilirubin, Direct 0.13 mg/dL (0.00-0.30); Globulin 3.2 g/dL (2.2-4.2); Protein, Total 7.2 g/dL (6.4-8.2)
[2019-06-18 13:14] LABS: Free T3 2.7 pg/mL (2.18-3.98); T4 Total, Thyroxin 8.7 ug/dL (4.8-13.9); Thyroid Stim Hormone (TSH) 1.36 uIU/mL (0.358-3.74)
== END ==
PROVIDERS: Internal Medicine Cardiovascular Disease; PCP Family Medicine; Referring Provider Family Medicine; Visit Provider Family Medicine
DX: E03.9 Hypothyroidism, unspecified (principal); R74.8 Abnormal levels of other serum enzymes; E78.5 Hyperlipidemia, unspecified
CPT/HCPCS: 36415; 80076; 84436; 84443; 84481

== ENCOUNTER → 2019-08-11 12:03 | Outpatient (CLI) | payer MEDICARE, BC, SELFPAY ==
[2019-02-01 13:58] VITALS: BMI 31.5
[2019-08-11 15:37] LABS: AST(SGOT) 57 U/L (15-37); Alanine Aminotransfer ALT/SGPT 131 U/L (13-56); Albumin, Serum 4.2 g/dL (3.2-5.0); Alkaline Phosphatase 88 U/L (45-117); Bilirubin, Direct 0.07 mg/dL (0.00-0.30); Ferritin 87 ng/mL (8-252); GGTP 57 U/L (5-55); Globulin 3.7 g/dL (2.2-4.2); Protein, Total 7.9 g/dL (6.4-8.2)
[2019-08-13 12:07] LABS: ANTINUCLEAR ANTIBODIES DIRECT Negative (Negative)
[2019-08-13 14:07] LABS: HEPATITIS B SURFACE AG Negative (Negative); Hepatitis A AB, Total Negative (Negative); Hepatitis A IgM Antibody Negative (Negative); Hepatitis B Core AB IgM Negative (Negative); Hepatitis B Core Ab Total Negative (Negative); Hepatitis C Ab <0.1 s/co ratio (0.0-0.9)
[2019-08-13 16:58] LABS: Anti-Smooth Muscle ABS 6 Units (0-19); Ceruloplasmin 34.6 mg/dL (19.0-39.0); Hep B Surface Antibodies Non Reactive (.)
[2019-08-13 16:59] LABS: Alpha Antitrypsin Serum 150 mg/dL (101-187)
== END ==
PROVIDERS: PCP Family Medicine; Referring Provider Internal Medicine Gastroenterology; Visit Provider Internal Medicine Gastroenterology
DX: K75.9 Inflammatory liver disease, unspecified (principal)
CPT/HCPCS: 36415; 80076; 82103; 82390; 82728; 82977; 83516; 86038; 86704; 86705; 86706; 86708; 86709; 86803; 87340

== ENCOUNTER → 2019-08-26 08:43 | Outpatient (CLI) | payer MEDICARE, BC, SELFPAY ==
[2019-02-01 13:58] VITALS: BMI 31.5
[2019-08-19 13:34] VITALS: BMI 31.5
--- NOTE | 2019-08-26 08:46 | US_ITS ---
STUDY: ABDOMINAL ULTRASOUND - RIGHT UPPER QUADRANT REASON FOR VISIT: Female, 74 years old ELEVATED LIVER ENZYMES TECHNIQUE: Ultrasound evaluation of the right upper quadrant was performed with real-time and static abdul-scale imaging. TECHNICAL QUALITY: Adequate. COMPARISON: None. FINDINGS: Liver: The liver measures 14.6 cm. There is increased echogenicity consistent with fatty infiltration. The bile ducts are within normal limits. There is hepatic color flow. The direction of portal flow is hepatopetal. There is no demonstrated mass lesion. Gallbladder: The patient is status post cholecystectomy. Common Bile Duct (C.B.D.): The common bile duct measures 3.5 mm. Pancreas: Normal size of the head, body and tail of the pancreas. There is normal echogenicity of the pancreas. There is no demonstrated pancreatic mass or cyst. Right Kidney: Normal size of the right kidney. The right kidney measures 10.5 x 5 x 4 cm. Normal renal cortex. The right cortex measures 1.4 cm. There is no demonstrated renal mass or cyst. There is no right hydronephrosis. US/Abdomen Limited IMPRESSION: Fatty infiltration of the liver. Electronically Signed: Telly Solis, at 14:46 EDT Tel , Service support ,
== END ==
PROVIDERS: PCP Family Medicine; Referring Provider Internal Medicine Gastroenterology; Visit Provider Internal Medicine Gastroenterology
DX: R94.5 Abnormal results of liver function studies (principal)
CPT/HCPCS: 76705

== ENCOUNTER → 2019-10-11 10:32 | Outpatient (CLI) | payer MEDICARE, BC, SELFPAY ==
[2019-08-19 13:34] VITALS: BMI 31.5
--- NOTE | 2019-10-11 10:35 | BI_ITS ---
MAMMOGRAPHY - BILATERAL SCREENING REASON FOR EXAM: Female, 74 years old. Routine annual screening examination. PERTINENT HISTORY: Non-contributory. TECHNIQUE: Digital bilateral breast faviola (3D mammographic acquisition) in the CC and MLO projections. 2-D mediolateral oblique (MLO) and craniocaudad (CC) views of both breasts were obtained. CAD: Full Field Digital Mammography with Computer Added Detection was performed. COMPARISON: Comparison is made with prior examination dated October 08, 2018 and June 04, 2017. FINDINGS: Breast Composition: There are scattered areas of fibroglandular density. There are no dominant masses or suspicious calcifications. No other significant abnormalities are identified. There has been no significant change since the prior study. BI/SCREEN MAMM (CAD) W/FAVIOLA BILAT IMPRESSION: Stable bilateral screening mammogram. Yearly follow-up mammogram recommended. (A) ASSESSMENT CATEGORY: BIRADS Category 1: Negative. A letter regarding these results will be sent to the patient by the facility within 30 days. Approximately 10% of breast cancers are not detected by mammography. A normal mammogram should not delay biopsy of a clinically suspicious abnormality. [id number] Electronically Signed: Josafat Corey, at 11:29 EDT , Service support ,
== END ==
PROVIDERS: PCP Family Medicine; Referring Provider Nurse Practitioner Family; Visit Provider Nurse Practitioner Family
DX: Z12.31 Encounter for screening mammogram for malignant neoplasm of breast (principal)
CPT/HCPCS: 77063; 77067

== ENCOUNTER → 2019-10-27 09:03 | Outpatient (CLI) | payer MEDICARE, BC, SELFPAY ==
[2019-08-19 13:34] VITALS: BMI 31.5
[2019-10-27 10:32] LABS: AST(SGOT) 52 U/L (15-37); Alanine Aminotransfer ALT/SGPT 80 U/L (13-56); Alkaline Phosphatase 74 U/L (45-117); Bilirubin, Direct 0.19 mg/dL (0.00-0.30); Cholesterol 133 mg/dL (200); Globulin 3.6 g/dL (2.2-4.2); High Density Lipoprotein 55 mg/dL; Protein, Total 7.6 g/dL (6.4-8.2); Triglycerides 83 mg/dL; Very Low Density Lipoprotein 17 mg/dL (5-40)
== END ==
PROVIDERS: PCP Family Medicine; Referring Provider Internal Medicine Cardiovascular Disease; Visit Provider Internal Medicine Cardiovascular Disease
DX: E78.5 Hyperlipidemia, unspecified (principal)
CPT/HCPCS: 36415; 80061; 80076

== ENCOUNTER 2019-11-08 07:37 | Day surgery (SDC) | payer MEDICARE, BC, SELFPAY ==
--- NOTE | 2019-10-28 02:41 | HP_ITS ---
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 [Ecotrin] 81 mg PO DAILY@0800 07/08/16 [History Confirmed 10/28/19] Citalopram Hydrobromide [Celexa] 20 mg PO DAILY 07/08/16 [History Confirmed 10/28/19] Cyanocobalamin (Vitamin B-12) [Vitamin B-12] 1,000 mcg PO DAILY 07/08/16 [History Confirmed 10/28/19] Levothyroxine [Synthroid] 50 mcg PO DAILY 07/08/16 [History Confirmed 10/28/19] Multivitamin [Multiple Vitamins] 1 ea PO DAILY 07/08/16 [History Confirmed 10/28/19] Lactobacillus acidophilus 100 mg PO QDAY 06/18/17 [History Confirmed 10/28/19] cetirizine 10 mg tablet 10 mg PO QDAY PRN tab 12/24/17 [History Confirmed 10/28/19] ascorbic acid (vitamin C) 500 mg capsule 500 mg PO DAILY cap 02/01/19 [History Confirmed 10/28/19] cholecalciferol (vitamin D3) 25 mcg (1,000 unit) capsule 1,000 unit PO DAILY 02/01/19 [History Confirmed 10/28/19] glucosamine HCl 1,500 mg tablet 1,500 mg PO DAILY 02/01/19 [History Confirmed 10/28/19] omeprazole 20 mg capsule,delayed release 20 mg PO DAILY 02/01/19 [History Confirmed 10/28/19] clopidogrel 75 mg tablet 75 mg PO DAILY #90 tab 08/19/19 [Rx Confirmed 10/28/19] hydrochlorothiazide 25 mg tablet 25 mg PO DAILY #90 tab 08/19/19 [Rx Confirmed 10/28/19] losartan 50 mg tablet 50 mg PO BID #180 tab 08/19/19 [Rx Confirmed 10/28/19] atorvastatin 20 mg tablet 20 mg PO DAILY #90 tab 09/15/19 [Rx Confirmed 10/28/19] [facility] Medical History Essential hypertension (Chronic) Presence of stent in coronary artery (Chronic ~09/25/11) 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) Sinus bradycardia (Chronic) Left bundle branch block (Chronic) Hyperlipidemia (Chronic) Edema (Chronic) Dyspnea, unspecified (Chronic) Angina pectoris (Chronic) Abnormal electrocardiogram (Chronic) Family history of hypertension (Acute) Family history of ischemic heart disease (Acute) Family history of premature coronary heart disease (Chronic) Fatigue (Resolved) Abnormal electrocardiogram during exercise stress test (Inactive) CAD (coronary artery disease) (Inactive) Family history of hypertension (Inactive) Family history of ischemic heart disease (Inactive) 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) Surgical History Presence of coronary angioplasty implant and graft (Chronic ~09/25/11) History of cholecystectomy (Resolved) History of lateral meniscus repair of right knee (Resolved) History of tonsillectomy and adenoidectomy (Resolved) History of total hysterectomy (Resolved) Hx of appendectomy (Resolved) Family History Father Myocardial infarction Mother Sudden cardiac Brother Sudden cardiac Myocardial infarction Brother CAD (coronary artery disease) Hx of CABG Brother CAD (coronary artery disease) Hx of CABG Brother Presence of permanent cardiac pacemaker Social History (Updated 10/28/19 @ 14:[address] Shiva Gross MD) Smoking Status: Never smoker alcohol intake: never substance use type: does not use HPI HPI Surgical H&P: Yes HPI: SALVADOR GUTIERREZ, is a 74 F who presents to the office today for Evaluation for colonoscopy.Patient's last colonoscopy was in 2014. She does have a brother who had colon cancer. She has been experiencing some constipation but she has not been taking anything to relieve this. She has not been complaining of any abdominal pain nor rectal bleeding. ROS General General: Yes weight change and fatigue; no appetite, colon cancer, breast cancer or weakness HEENT HEENT: Yes difficulty swallowing; no eye injury, eye surgery, swollen glands or hoarseness Endo Endocrine: Yes thyroid disease; no diabetes mellitus, thyroid cancer, Hair loss, heat intolerance or cold intolerance Skin Skin: No rash or changing moles Musc Musculoskeletal: Yes arthritis; no back problems, rheumatoid arthritis, gout or joint pain Cardio Cardiovascular: Yes heart disease, high blood pressure and heart stent; no murmur, pacemaker, atrial fibrillation, heart attack, palpitations, shortness of breat with exertion or chest pain Psych Psychiatric: No depression, anxiety or hearing voices Resp Respiratory: Yes shortness of breath, No sleep apnea, Yes cough, No COPD, No asthma, No emphysema, No wheezing Gastro Gastrointestinal: No abdominal pain, Yes nausea or vomiting, No diarrhea, Yes constipation, No blood in stool, Yes acid reflux, Yes hemorrhoids, No ulcers, No gallbladder problem, No black,tarry stools Marek Hematologic: Yes blood thinners, No blood disorders, No bleeding, No anemia, No blood clots Neuro Neurologic: No system reviewed and no additional complaints, except as docu, No as per HPI, No abnormal walking, No abnormal hearing, No abnormal movements, No abnormal speech, No behavioral changes, No burning sensations, No confusion, No seizure-like activity, No unsteadiness, No dizziness, No localized weakness, No frequent falls, No headache(s), No lack of coordination, No loss of vision, No memory loss, No numbness, No other visual disturbances, No radiating pain, No restless legs, No sensory deficit, No fainting, No tingling, No tremor(s), No weakness, No other Exam Const General: no acute distress, well developed, well hydrated Orientation: oriented to person, oriented to place, oriented to time [facility] Head: normocephalic, atraumatic Ears: external ears normal Mouth: moist mucous membranes Eyes Sclera: sclerae normal Pupils: normal by confrontation Neck Neck: no lymphadenopathy noted Neck mass: No Thyroid: thyroid normal, symmetrical Chest Chest palpation & inspection: normal inspection of the chest Resp Effort & Inspection: normal respiratory effort Auscultation: clear to auscultation bilaterally Percussion: percussion normal Cardio Rate: regular rate Rhythm: regular rhythm Heart Sounds: no murmurs GI Palpation: soft, no hepatosplenomegaly, no masses, nontender Rectal Exam: other Other: Rectal exam deferred. Extrem General: normal to inspection, no clubbing, cyanosis or edema Assessment & Plan Problems 1. Family history of colon cancer Z80.0 Plan I have discussed the above with the patient. I have offered the patient colonoscopy for evaluation. I have explained the risks/benefits of the procedure and described the procedure. I have discussed the risks with the patient, including but not limited to: infection, bleeding, perforation of the GI tract requiring emergency surgery, inability to complete the procedure, injury to any internal organs, complications of anesthesia, etc. - the patient understands and agrees to proceed. I have answered all the patient's questions to the patient's satisfaction and the patient has no further questions. The patient has been given instructions for the colon cleansing preparation. Patient will be off her Plavix and aspirin for 5 days prior to the procedure. Coding Level of Care Code Off vis,new,level 3 Diagnoses Family history of colon cancer Z80.0 10/28/19 1441 <Electronically signed by Shiva muñiz MD> Date _ Shiva Gross MD I have re-examined the patient. There are no clinical changes since date of exam.
[2019-10-28 14:37] VITALS: BMI 31.5
[2019-11-08 08:03] VITALS: BP 147/69; PULSE 61; RESP 16; TEMP 36.8; O2SAT 98; BMI 28.7
[2019-11-08] MEDS: Lactated Ringers 1,000 ML 100 ML IV (08:09)
[2019-11-08 09:22] VITALS: BP 102/59; BP 147/69; PULSE 58; RESP 18; TEMP 36.3; O2SAT 100
--- NOTE | 2019-11-08 09:22 | OP.CCLET_ITS ---
11/08/2019 Mushtaq Blum MD [address] [id number] Re : Colonoscopy procedure for Doris Douglas Dear Dr. Blum This procedure was performed on Friday, November 08, 2019. My impressions and recommendations are as follows: Impressions : - The entire examined colon is normal on direct and retroflexion views. - No specimens collected. Recommendations : - Discharge patient to home. - Resume previous diet. - Continue present medications. - Repeat colonoscopy in 5 years for surveillance. - Return to primary care physician (date not yet determined). My findings are described in the full procedure note, which is enclosed. If I can be of further assistance, please feel free to contact me at Doctor phone number(s): , Fax: [phone], Work: . Sincerely, MD Shiva Sanchez MD 11/08/2019 9:22:10 AM This report has been signed electronically.
--- NOTE | 2019-11-08 09:22 | OP.COLON_ITS ---
Patient Name: Doris Douglas Procedure Date: 11/08/2019 8:57 AM Date of : 1945 Age: 74 Procedure: Colonoscopy Indications: Family history of colon cancer in a first-degree relative Providers: Shiva Gross MD Referring MD: Mushtaq Blum MD Medicines: See the Anesthesia note for documentation of the administered medications Patient Profile: This is a 74 year old female. Refer to note in patient chart for documentation of history and physical. Last Colonoscopy: 5 years ago. Complications: No immediate complications. Procedure: Pre-Anesthesia Assessment: - Prior to the procedure, a History and Physical was performed, and patient medications and allergies were reviewed. The patient's tolerance of previous anesthesia was also reviewed. The risks and benefits of the procedure and the sedation options and risks were discussed with the patient. All questions were answered, and informed consent was obtained. Prior Anticoagulants: The patient has taken aspirin, last dose was 1 day prior to procedure. ASA Grade Assessment: II - A patient with mild systemic disease. After reviewing the risks and benefits, the patient was deemed in satisfactory condition to undergo the procedure. After I obtained informed consent, the scope was passed under direct vision. Throughout the procedure, the patient's blood pressure, pulse, and oxygen saturations were monitored continuously. The colonoscope was introduced through the anus and advanced to the cecum, identified by appendiceal orifice and ileocecal valve. The colonoscopy was performed without difficulty. The patient tolerated the procedure well. The quality of the bowel preparation was good. Scope In: 9:05:40 AM Scope Withdrawal Time 0 hours 6 minutes 33 seconds Scope Out: 9:16:46 AM Total Procedure Duration Time 0 hours 11 minutes 6 seconds Findings: The entire examined colon appeared normal on direct and retroflexion views. Impression: - The entire examined colon is normal on direct and retroflexion views. - No specimens collected. Recommendation: - Discharge patient to home. - Resume previous diet. - Continue present medications. - Repeat colonoscopy in 5 years for surveillance. - Return to primary care physician (date not yet determined). Procedure Code(s): --- Professional --- 31624, Colonoscopy, flexible; diagnostic, including collection of specimen(s) by brushing or washing, when performed (separate procedure) Diagnosis Code(s): --- Professional --- Z80.0, Family history of malignant neoplasm of digestive organs CPT copyright 2017 [employer]. All rights reserved. The codes documented in this report are preliminary and upon manager internship review may be revised to meet current compliance requirements. MD Shiva Sanchez MD 11/08/2019 9:22:10 AM This report has been signed electronically. Number of Addenda: 0 Note Initiated On: 11/08/2019 8:57 AM
[2019-11-08 09:25] VITALS: BP 108/61; BP 147/69; PULSE 55; RESP 18; O2SAT 100
[2019-11-08 09:30] VITALS: BP 104/57; BP 147/69; PULSE 56; RESP 18; O2SAT 100
[2019-11-08 09:35] VITALS: BP 115/69; BP 147/69; PULSE 55; RESP 18; TEMP 36.3; O2SAT 100
[2019-11-08 09:59] VITALS: BP 147/69
== END 2019-11-08 10:08 | disposition home or self-care (01) ==
LOC: EN 07:38 → AC 07:38
PROVIDERS: Anesthesiology; PCP Family Medicine; Referring Provider Family Medicine; Visit Provider Surgery
PROC: 0DJD8ZZ Inspection of Lower Intestinal Tract, Via Natural or Artificial Opening Endoscopic (ICD-10-PCS; CPT 45378; principal; 2019-11-08 08:40)
DX: K59.00 Constipation, unspecified (principal); Z80.0 Family history of malignant neoplasm of digestive organs; Z79.02 Long term (current) use of antithrombotics/antiplatelets; Z79.82 Long term (current) use of aspirin; I10 Essential (primary) hypertension; Z95.5 Presence of coronary angioplasty implant and graft; E78.5 Hyperlipidemia, unspecified; Z82.49 Family history of ischemic heart disease and other diseases of the circulatory system
CPT/HCPCS: 45378; 87635; G2023; J7120; U0003

== ENCOUNTER → 2019-11-24 08:40 | Outpatient (CLI) | payer MEDICARE, BC, SELFPAY ==
[2019-11-08 08:03] VITALS: BMI 28.7
[2019-11-24 11:11] LABS: ALB/GLOB Ratio 1.1 RATIO (0.9-2.4); AST(SGOT) 44 U/L (15-37); Alanine Aminotransfer ALT/SGPT 70 U/L (13-56); Albumin, Serum 3.9 g/dL (3.2-5.0); Alkaline Phosphatase 78 U/L (45-117); Anion Gap 8 (5-15); BUN 13 mg/dL (7-18); BUN/Creat Ratio 19.6 RATIO (10-20); Calcium,Total 9.9 mg/dL (8.5-10.1); Chloride 103 mmol/L (98-107); Cholesterol 127 mg/dL (200); Creatinine, Serum 0.66 mg/dL (0.55-1.02); EST Glomerular Filtration Rate 93 mL/min (>60); Est Glom Filt Rate - Afr Amer 112 mL/min (>60); Free T3 2.1 pg/mL (2.18-3.98); Globulin 3.5 g/dL (2.2-4.2); Glucose 90 mg/dL (74-106); High Density Lipoprotein 55 mg/dL; Potassium 3.3 mmol/L (3.5-5.1); Protein, Total 7.4 g/dL (6.4-8.2); Sodium Level 139 mmol/L (136-145); T4 Total, Thyroxin 10.6 ug/dL (4.8-13.9); Thyroid Stim Hormone (TSH) 0.73 uIU/mL (0.358-3.74); Triglycerides 79 mg/dL; Very Low Density Lipoprotein 16 mg/dL (5-40)
== END ==
PROVIDERS: PCP Family Medicine; Visit Provider Family Medicine
DX: E78.00 Pure hypercholesterolemia, unspecified (principal); E03.9 Hypothyroidism, unspecified
CPT/HCPCS: 36415; 80053; 80061; 84436; 84443; 84481

== ENCOUNTER → 2019-12-10 08:55 | Outpatient (CLI) | payer MEDICARE, BC, SELFPAY ==
[2019-12-10 10:19] LABS: Anion Gap 4 (5-15); BUN 10 mg/dL (7-18); BUN/Creat Ratio 16.5 RATIO (10-20); Calcium,Total 9.8 mg/dL (8.5-10.1); Chloride 105 mmol/L (98-107); Creatinine, Serum 0.61 mg/dL (0.55-1.02); EST Glomerular Filtration Rate 103 mL/min (>60); Est Glom Filt Rate - Afr Amer 125 mL/min (>60); Glucose 91 mg/dL (74-106); Potassium 3.4 mmol/L (3.5-5.1); Sodium Level 138 mmol/L (136-145)
== END ==
PROVIDERS: PCP Family Medicine; Referring Provider Family Medicine; Visit Provider Family Medicine
DX: E87.6 Hypokalemia (principal)
CPT/HCPCS: 36415; 80048

== ENCOUNTER → 2020-02-21 15:45 | Outpatient (CLI) | payer MEDICARE, BC, SELFPAY ==
--- NOTE | 2020-02-21 15:47 | CT_ITS ---
STUDY: CT ABDOMEN AND PELVIS WITHOUT CONTRAST REASON FOR EXAM: Female, 74 years old. ABDOMINAL PAIN, RT SIDE RADIATION DOSAGE (If Supplied By Facility): CTDIvol = ( 6.85 ) mGy, DLP = ( 338.66 ) mGycm TECHNIQUE: Transaxial images were obtained from the dome of the diaphragm to the symphysis pubis without oral contrast, and without intravenous contrast. Sagittal and coronal images were reconstructed. Individualized dose optimization techniques were used for this CT. COMPARISON: None. FINDINGS: The visualized lung bases are unremarkable. Coronary artery calcification. Normal liver. There are surgical clips in the gallbladder fossa consistent with a prior cholecystectomy. There are multiple benign calcified granulomata of the spleen. Normal pancreas. Normal bilateral adrenal glands. Normal right kidney. 2 mm calculus in the upper pole calyx of the left kidney. 3.3 mm concretion in the lower pole calyx of the left kidney. Normal visualized stomach. Normal small intestine. There are multiple colonic diverticula consistent with diverticulosis. The appendix is visualized and appears normal. There is scattered atherosclerotic calcification of the abdominal aorta, without a demonstrated aneurysm. Normal inferior vena cava. Normal retroperitoneum. Normal urinary bladder. Small benign-appearing bilateral inguinal lymph nodes. Normal abdominal wall. There are mild degenerative changes of the visualized lumbar spine. CT/Abdomen/Pelvis without Cont IMPRESSION: Nonobstructive left intrarenal calculi. Electronically Signed: Josafat Corey, at 9:47 EDT , Service support ,
== END ==
PROVIDERS: PCP Family Medicine; Referring Provider Family Medicine; Visit Provider Family Medicine
DX: R10.9 Unspecified abdominal pain (principal)
CPT/HCPCS: 74176

== ENCOUNTER → 2020-04-24 09:28 | Outpatient (CLI) | payer MEDICARE, BC, SELFPAY ==
[2020-02-22 08:58] VITALS: BMI 26.6
[2020-04-24 15:56] LABS: AST(SGOT) 29 U/L (15-37); Alanine Aminotransfer ALT/SGPT 42 U/L (13-56); Alkaline Phosphatase 72 U/L (45-117); Bilirubin, Direct 0.18 mg/dL (0.00-0.30); Cholesterol 142 mg/dL (200); Globulin 3.2 g/dL (2.2-4.2); High Density Lipoprotein 64 mg/dL; Protein, Total 7.2 g/dL (6.4-8.2); Triglycerides 105 mg/dL; Very Low Density Lipoprotein 21 mg/dL (5-40)
== END ==
PROVIDERS: PCP Family Medicine; Referring Provider Internal Medicine Cardiovascular Disease; Visit Provider Internal Medicine Cardiovascular Disease
DX: E78.00 Pure hypercholesterolemia, unspecified (principal); E78.5 Hyperlipidemia, unspecified
CPT/HCPCS: 80061; 80076

== ENCOUNTER → 2020-05-24 08:53 | Outpatient (CLI) | payer MEDICARE, BC, SELFPAY ==
[2020-05-01 13:43] VITALS: BMI 24.7
[2020-05-24 11:08] LABS: Anion Gap 2 (5-15); BUN 14 mg/dL (7-18); BUN/Creat Ratio 22.3 RATIO (10-20); Chloride 106 mmol/L (98-107); Cholesterol 134 mg/dL (200); Creatinine, Serum 0.63 mg/dL (0.55-1.02); EST Glomerular Filtration Rate 99 mL/min (>60); Est Glom Filt Rate - Afr Amer 119 mL/min (>60); Free T3 1.9 pg/mL (2.18-3.98); Glucose 56 mg/dL (74-106); High Density Lipoprotein 64 mg/dL; Potassium 3.4 mmol/L (3.5-5.1); Sodium Level 140 mmol/L (136-145); T4 Free Direct 1.07 ng/dL (0.76-1.46); Thyroid Stim Hormone (TSH) 1.82 uIU/mL (0.358-3.74); Triglycerides 107 mg/dL; Very Low Density Lipoprotein 21 mg/dL (5-40)
== END ==
PROVIDERS: PCP Family Medicine; Referring Provider Family Medicine; Visit Provider Family Medicine
DX: E03.9 Hypothyroidism, unspecified (principal); E78.00 Pure hypercholesterolemia, unspecified
CPT/HCPCS: 36415; 80048; 80061; 84439; 84443; 84481

== ENCOUNTER → 2020-09-28 15:13 | Outpatient (CLI) | payer MEDICARE, BC, SELFPAY ==
[2020-05-01 13:43] VITALS: BMI 24.7
[2020-09-28 17:32] LABS: Hematocrit 40.2 % (37-47); Hemoglobin 13.4 g/dL (12.0-15.0); Mean Corp Hgb Conc 33.3 g/dL (32-36); Mean Corpuscular Hgb 31.5 pg (27.0-32.0); Mean Corpuscular Volume 94.4 fL (81-99); Mean Platelet Vol. 9.4 fl (6.2-12.0); Platelet Count 241 K/mm3 (150-450); RBC Distribution Width CV 13.2 % (11.6-14.6); RBC Distribution Width SD 45.6 fl (35.1-43.9); Red Blood Count 4.26 M/mm3 (4.2-5.4); White Blood Count 6.4 K/mm3 (4.4-11.0)
== END ==
PROVIDERS: PCP Family Medicine; Referring Provider Family Medicine; Visit Provider Nurse Practitioner Family
DX: R53.83 Other fatigue (principal)
CPT/HCPCS: 36415; 85027

== ENCOUNTER → 2020-10-25 10:17 | Outpatient (CLI) | payer MEDICARE, BC, SELFPAY ==
[2020-05-01 13:43] VITALS: BMI 24.7
--- NOTE | 2020-10-25 10:20 | BD_ITS ---
STUDY: DUAL ENERGY X-RAY ABSORPTIOMETRY / DXA REASON FOR EXAM: Female, 75 years old. M810. Patient is postmenopausal. TECHNIQUE: Bone Mineral Density (BMD) measurements of lumbar spine and bilateral hips were obtained. COMPARISON: Comparison is made with prior examination dated 10/16/2016. FINDINGS: Lumbar Spine (L1-L4): g/cm2 (1.048) / T-score (-1.0) / Z-score (0.7) Findings are suggestive of normal bone density with a low fracture risk. Left Femur Total: g/cm2 (0.856) / T-score (-1.2) / Z-score (0.4) Left Femoral Neck: g/cm2 (0.858) / T-score (-1.3) / Z-score (0.5) Right Femur Total: g/cm2 (0.796) / T-score (-1.7) / Z-score (0.0) Right Femoral Neck: g/cm2 (0.824) / T-score (-1.5) / Z-score (0.3) The T-Scores on the most recent prior examination were: Lumbar Spine (L1-L4): There has been worsening of bone density since the previous examination. Left Femur Total: which represents an improvement of 0.2%. Right Femur Total: which represents a worsening of 3.4%. BD/Dexa Bone Density Study IMPRESSION: The patient is considered osteopenic as outlined below according to World Derek Organization (WHO) criteria with a moderate fracture risk. There has been worsening of bone density since the previous examination. Reference Information: The T-score is the number of standard deviations above or below the standard which is normal for young adults at their peak bone mineral density. The World Health Organization (WHO) interprets the T-scores as follows: Above -1 Normal bone density Between -1 and -2.5 Osteopenia Equal to / or below -2.5 Osteoporosis As a practical clinical guideline, osteopenia may be graded as follows: Mild -1 through -1.5 Moderate -1.6 through -2.0 Severe -2.1 through -2.4 The Z-score is the number of standard deviations above or below age-matched controls. A Z-score of less than -1.5 would be considered abnormal. References: 1. NIH Osteoporosis and Related Bone Diseases www osteo.org 2. International Society for Clinical Densitometry www iscd.org 3. National Osteoporosis Foundation www nof.org Electronically Signed: Josafat Corey MD at 12:40 EDT , Service support ,
--- NOTE | 2020-10-25 10:40 | BI_ITS ---
MAMMOGRAPHY - BILATERAL SCREENING REASON FOR EXAM: Female, 75 years old. Routine annual screening examination. PERTINENT HISTORY: Non-contributory. TECHNIQUE: Digital bilateral breast faviola (3D mammographic acquisition) in the CC and MLO projections. 2-D mediolateral oblique (MLO) and craniocaudad (CC) views of both breasts were obtained. CAD: Full Field Digital Mammography with Computer Added Detection was performed. COMPARISON: Comparison is made with prior study dated 10/11/2019 and 10/08/2018. FINDINGS: Breast Composition: There are scattered areas of fibroglandular density. There are no dominant masses or suspicious calcifications. No other significant abnormalities are identified. There has been no significant change since the prior study. BI/SCRN MAMM (CAD)W/FAVIOLA BILAT IMPRESSION: Stable bilateral screening mammogram. Yearly follow-up mammogram recommended. (A) ASSESSMENT CATEGORY: BIRADS Category 1: Negative. A letter regarding these results will be sent to the patient by the facility within 30 days. Approximately 10% of breast cancers are not detected by mammography. A normal mammogram should not delay biopsy of a clinically suspicious abnormality. [id number] Electronically Signed: Josafat Corey MD at 12:03 EDT , Service support ,
[2020-10-25 15:35] LABS: AST(SGOT) 23 U/L (15-37); Alanine Aminotransfer ALT/SGPT 41 U/L (13-56); Albumin, Serum 4.2 g/dL (3.2-5.0); Alkaline Phosphatase 76 U/L (45-117); Bilirubin, Direct 0.18 mg/dL (0.00-0.30); Cholesterol 144 mg/dL (200); Globulin 2.9 g/dL (2.2-4.2); High Density Lipoprotein 74 mg/dL; Protein, Total 7.1 g/dL (6.4-8.2); Triglycerides 52 mg/dL; Very Low Density Lipoprotein 10 mg/dL (5-40)
== END ==
PROVIDERS: Internal Medicine Cardiovascular Disease; PCP Family Medicine; Referring Provider Nurse Practitioner Family; Visit Provider Nurse Practitioner Family
DX: Z12.31 Encounter for screening mammogram for malignant neoplasm of breast (principal); M81.0 Age-related osteoporosis without current pathological fracture; E78.00 Pure hypercholesterolemia, unspecified; E78.5 Hyperlipidemia, unspecified
CPT/HCPCS: 36415; 77063; 77067; 77080; 80061; 80076

== ENCOUNTER → 2021-01-08 16:46 | Outpatient (CLI) | payer MEDICARE, BC, SELFPAY ==
[2021-01-12 04:07] LABS: Alternaria alternata <0.10 kU/L (Class 0); Aspergillus fumigatus <0.10 kU/L (Class 0); Bahia Grass <0.10 kU/L (Class 0); Bermuda Grass <0.10 kU/L (Class 0); Bluegrass, Kentucky <0.10 kU/L (Class 0); Cat Hair/Dander, Standard <0.10 kU/L (Class 0); Cedar, Mountain <0.10 kU/L (Class 0); Cladosporium herbarum <0.10 kU/L (Class 0); D farinae Mite <0.10 kU/L (Class 0); D pteronyssinus <0.10 kU/L (Class 0); Dog Epithelia <0.10 kU/L (Class 0); Elm, American White <0.10 kU/L (Class 0); Hazelnut Tree <0.10 kU/L (Class 0); Johnson Grass <0.10 kU/L (Class 0); Maple/Box Elder <0.10 kU/L (Class 0); Mucor racemosus <0.10 kU/L (Class 0); Mugwort <0.10 kU/L (Class 0); Mulberry, White <0.10 kU/L (Class 0); Oak, White <0.10 kU/L (Class 0); Penicillium chrysogen <0.10 kU/L (Class 0); Pigweed, Rough <0.10 kU/L (Class 0); Plantain, English <0.10 kU/L (Class 0); Ragweed, Short/Common <0.10 kU/L (Class 0); Sheep Sorrel(Dock) <0.10 kU/L (Class 0); Stemphylium herbarum <0.10 kU/L (Class 0); Sycamore, American <0.10 kU/L (Class 0)
[2021-01-12 08:34] LABS: Cockroach, American <0.10 kU/L (Class 0); Hickory, White <0.10 kU/L (Class 0); Nettle <0.10 kU/L (Class 0); Sweet Gum <0.10 kU/L (Class 0)
== END ==
PROVIDERS: PCP Family Medicine; Referring Provider Family Medicine; Visit Provider Family Medicine
DX: T78.40XA Allergy, unspecified, initial encounter (principal)
CPT/HCPCS: 36415; 86003

== ENCOUNTER → 2021-04-16 10:52 | Outpatient (CLI) | payer MEDICARE, BC, SELFPAY ==
[2021-04-16 13:21] LABS: AST(SGOT) 21 U/L (15-37); Alanine Aminotransfer ALT/SGPT 31 U/L (13-56); Albumin, Serum 4.1 g/dL (3.2-5.0); Alkaline Phosphatase 71 U/L (45-117); Bilirubin, Direct 0.21 mg/dL (0.00-0.30); Cholesterol 159 mg/dL (200); High Density Lipoprotein 82 mg/dL; Protein, Total 7.1 g/dL (6.4-8.2); Triglycerides 62 mg/dL; Very Low Density Lipoprotein 12 mg/dL (5-40)
== END ==
PROVIDERS: PCP Family Medicine; Referring Provider Nurse Practitioner Family; Visit Provider Nurse Practitioner Family
DX: E78.00 Pure hypercholesterolemia, unspecified (principal); E78.5 Hyperlipidemia, unspecified
CPT/HCPCS: 80061; 80076

== ENCOUNTER → 2021-04-25 13:07 | Outpatient (CLI) | payer MEDICARE, BC, SELFPAY ==
--- NOTE | 2021-04-25 13:11 | CT_ITS ---
STUDY: CT MAXILLOFACIAL SINUSES REASON FOR EXAM: Female, 76 years old. Sinusitis RADIATION DOSAGE (If Supplied By Facility): CTDIvol = ( 33.06 ) mGy, DLP = ( 780.13 ) mGycm TECHNIQUE: The patient was scanned in a multi detector CT scanner. High resolution axial imaging was performed without the administration of intravenous contrast material. Sagittal and coronal images were reconstructed. Individualized dose optimization techniques were used for this CT. COMPARISON: None. FINDINGS: FRONTAL SINUSES: Normal aeration, without mucosal inflammatory disease. ETHMOIDAL SINUSES: Normal aeration, without mucosal inflammatory disease. 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 SPHENOIDAL SINUSES: Normal aeration, without mucosal inflammatory disease. There is patency of the bilateral maxillary infundibuli with normal uncinate processes, ethmoid bullae, and hiatus semilunaris. There is kristen bullosa of the left middle turbinate. Normal bilateral inferior turbinates. Normal midline nasal septum. There is patency of the bilateral nasal airways. The visualized osseous structures are normal. The visualized bilateral orbital contents are normal. 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 Electronically Signed: Josafat Corey MD at 13:41 EST , Service support ,
== END ==
PROVIDERS: PCP Family Medicine; Referring Provider Family Medicine; Visit Provider Family Medicine
DX: J32.9 Chronic sinusitis, unspecified (principal)
CPT/HCPCS: 70486

== ENCOUNTER → 2021-04-27 13:46 | Outpatient (CLI) | payer MEDICARE, BC, SELFPAY ==
--- NOTE | 2021-04-27 13:47 | ECHOD_ITS ---
Reason For Study: Murmur Procedure This was a 2D Doppler, Color Flow transthoracic echocardiogram. The exam was of adequate technical quality. Exam performed in department. Left Ventricle Normal LV size. Segmental dysfunction with preserved ejection fraction (see wall motion). The estimated ejection fraction is 55 %. Septal motion consistent with IVCD. No evidence for diastolic dysfunction. Mid-inferoseptal : Hypokinetic. Mid-anteroseptal : Hypokinetic. Right Ventricle Normal RV size. Normal systolic function. Atria Normal left atrium. Normal right atrium. No doppler evidence for ASD. Mitral Valve There is no mitral annular calcification. Mild-Moderate (1-2+) eccentric mitral valve insufficiency. Tricuspid Valve Normal tricuspid valve. Mild to moderate (1-2+) tricuspid valve insufficiency. Right ventricular systolic pressure estimated to be 25 mmHg. Aortic Valve Trisinus/trileaflet aortic valve. Mild focal aortic valve calcification. Mild (1+) aortic valve insufficiency. Pulmonic Valve The pulmonic valve is not well visualized. Great Vessels Normal sized aortic root. Pericardium/Pleural No pericardial effusion. MMode/2D Measurements & Calculations LVIDd: 4.1 cm IVSd: 0.91 cm Ao root diam: 3.3 cm LVIDs: 3.2 cm LVPWd: 1.0 cm LA dimension: 2.7 cm RVDd: 3.6 cm FS: 21.8 % LAV(MOD-bp): 26.1 ml LVAd ap4: 24.7 cm2 SV(MOD-sp4): 33.6 ml LAV(MOD-bp) Indexed: 17.3 ml/m2 LVLd ap4: 6.8 cm LAV(MOD-sp2): 34.4 ml EDV(MOD-sp4): 72.8 ml LAV(MOD-sp4): 18.3 ml EDV(sp4-el): 76.7 ml LVAs ap4: 17.0 cm2 LVLs ap4: 6.1 cm ESV(MOD-sp4): 39.2 ml ESV(sp4-el): 40.7 ml EF(MOD-sp4): 46.1 % EF(sp4-el): 46.9 % SV(sp4-el): 36.0 ml LA A4 area: 9.9 cm2 RA A4 area: 10.0 cm2 Time Measurements MV dec time: 0.44 sec Doppler Measurements & Calculations MV E max babar: 55.5 cm/sec Lat Peak E' Babar: 4.8 cm/sec Med Peak E' Babar: 5.2 cm/sec MV A max babar: 78.7 cm/sec E/E' lat: 11.5 E/E' med: 10.6 MV E/A: 0.71 MV V2 max: 71.2 cm/sec MV P1/2t max babar: 60.4 cm/sec Ao V2 max: 116.5 cm/sec MV max P.0 mmHg MV P1/2t: 99.0 msec Ao max P.4 mmHg MV V2 mean: 35.0 cm/sec MV mean P.61 mmHg MV dec slope: 178.6 cm/sec2 MV V2 VTI: 26.0 cm MVA(P1/2t): 2.2 cm2 AI max babar: 377.5 cm/sec LV V1 max: 89.5 cm/sec PA V2 max: 77.8 cm/sec AI max P.0 mmHg LV V1 max P.2 mmHg AI dec slope: 126.7 cm/sec2 AI P1/2t: 872.8 msec TR max babar: 234.9 cm/sec TR max P.1 mmHg ECHO/Echo Complete Interpretation Summary Segmental dysfunction with preserved ejection fraction (see wall motion). The estimated ejection fraction is 55 %. Septal motion consistent with IVCD. Mild-Moderate (1-2+) eccentric mitral valve insufficiency. Mild to moderate (1-2+) tricuspid valve insufficiency. Mild focal aortic valve calcification. Mild (1+) aortic valve insufficiency. Right ventricular systolic pressure estimated to be 25 mmHg. No evidence for diastolic dysfunction. Ordering Physician: Mushtaq Edwards Referring Physician: Mushtaq Blum Performed By: Jeb Sykes RCS
== END ==
PROVIDERS: PCP Family Medicine; Referring Provider Internal Medicine Cardiovascular Disease; Visit Provider Internal Medicine Cardiovascular Disease
DX: I25.10 Atherosclerotic heart disease of native coronary artery without angina pectoris (principal); I34.0 Nonrheumatic mitral (valve) insufficiency
CPT/HCPCS: 93306

== ENCOUNTER 2021-05-23 09:04 | Outpatient (CLI) | payer MEDICARE, BC, SELFPAY ==
[2021-05-23 11:16] LABS: ALB/GLOB Ratio 1.2 RATIO (0.9-2.4); AST(SGOT) 18 U/L (15-37); Alanine Aminotransfer ALT/SGPT 32 U/L (13-56); Albumin, Serum 3.9 g/dL (3.2-5.0); Alkaline Phosphatase 68 U/L (45-117); Anion Gap 5 (5-15); BUN 15 mg/dL (7-18); BUN/Creat Ratio 24.2 RATIO (10-20); Calcium,Total 10.6 mg/dL (8.5-10.1); Chloride 104 mmol/L (98-107); Creatinine, Serum 0.62 mg/dL (0.55-1.02); EST Glomerular Filtration Rate 100 mL/min (>60); Est Glom Filt Rate - Afr Amer 121 mL/min (>60); Free T3 2.3 pg/mL (2.18-3.98); Globulin 3.3 g/dL (2.2-4.2); Glucose 91 mg/dL (74-106); Potassium 3.6 mmol/L (3.5-5.1); Protein, Total 7.2 g/dL (6.4-8.2); Sodium Level 139 mmol/L (136-145); T4 Free Direct 1.08 ng/dL (0.76-1.46); Thyroid Stim Hormone (TSH) 0.74 uIU/mL (0.358-3.74)
== END 2021-05-23 23:59 | disposition short-term general hospital (02) ==
LOC: MFPLAB 09:06
PROVIDERS: PCP Family Medicine; Referring Provider Family Medicine; Visit Provider Family Medicine
DX: E03.9 Hypothyroidism, unspecified (principal); E78.00 Pure hypercholesterolemia, unspecified
CPT/HCPCS: 36415; 80053; 84439; 84443; 84481

== ENCOUNTER → 2021-10-03 | Outpatient (CLI) | payer MEDICARE, BC, SELFPAY ==
[2021-10-03 13:06] LABS: ALB/GLOB Ratio 1.2 RATIO (0.9-2.4); AST(SGOT) 16 U/L (15-37); Alanine Aminotransfer ALT/SGPT 32 U/L (13-56); Albumin, Serum 3.8 g/dL (3.2-5.0); Alkaline Phosphatase 67 U/L (45-117); Anion Gap 5 (5-15); BUN 16 mg/dL (7-18); BUN/Creat Ratio 25.3 RATIO (10-20); Calcium,Total 9.6 mg/dL (8.5-10.1); Chloride 103 mmol/L (98-107); Cholesterol 143 mg/dL (200); Creatinine, Serum 0.63 mg/dL (0.55-1.02); EST Glomerular Filtration Rate 98 mL/min (>60); Est Glom Filt Rate - Afr Amer 118 mL/min (>60); Globulin 3.1 g/dL (2.2-4.2); Glucose 81 mg/dL (74-106); High Density Lipoprotein 76 mg/dL; Potassium 3.6 mmol/L (3.5-5.1); Protein, Total 6.9 g/dL (6.4-8.2); Sodium Level 138 mmol/L (136-145); Thyroid Stim Hormone (TSH) 0.62 uIU/mL (0.358-3.74); Triglycerides 73 mg/dL; Very Low Density Lipoprotein 15 mg/dL (5-40)
== END | disposition home or self-care (01) ==
LOC: MFPLAB 10:52
PROVIDERS: PCP Family Medicine; Referring Provider Family Medicine; Visit Provider Family Medicine
DX: Z00.00 Encounter for general adult medical examination without abnormal findings (principal); E04.1 Nontoxic single thyroid nodule; I10 Essential (primary) hypertension
CPT/HCPCS: 36415; 80053; 80061; 84443

== ENCOUNTER → 2021-10-12 | Outpatient (CLI) | payer MEDICARE, BC, SELFPAY ==
--- NOTE | 2021-10-12 12:52 | US_ITS ---
STUDY: THYROID ULTRASOUND REASON FOR EXAM: Female, 76 years old. Thyroid nodule. TECHNIQUE: Ultrasound evaluation of the thyroid was performed with real-time and static abdul-scale imaging. COMPARISON: Comparison is made with prior ultrasound dated 03/27/2018. FINDINGS: RIGHT LOBE: The right lobe of the thyroid gland measures 4.6 cm x 1.6 cm x 1.3 cm. There is a homogeneous echotexture. There is a 1.8 cm x 1.5 cm x 0.7 cm complex solid and cystic nodule in the upper midpole of the right globe. This has increased in size as compared to prior study. Biopsy is recommended for further evaluation. Intranodular vascularity is visualized. LEFT LOBE: The left lobe of the thyroid gland measures 4.1 cm x 1.3 cm x 1.2 cm. There is a homogeneous echotexture. There is a 4 mm x 4 mm x 3 mm hypoechoic solid nodule in the upper pole. A similar appearing solid nodule measuring 1 cm x 0.8 cm x 0.6 cm is seen in the midpole. ISTHMUS: The isthmus measures 3 mm. The regional lymph nodes are normal. US/Thyroid IMPRESSION: Solid cystic and solid nodule in the upper midportion of the right lobe of the thyroid which has increased in size as compared to prior study. Biopsy recommended. Electronically Signed: Josafat Corey MD at 14:13 EDT ,
== END | disposition home or self-care (01) ==
PROVIDERS: PCP Family Medicine; Referring Provider Family Medicine; Visit Provider Family Medicine
DX: E04.1 Nontoxic single thyroid nodule (principal)
CPT/HCPCS: 76536

== ENCOUNTER → 2021-10-16 | Outpatient (CLI) | payer MEDICARE, BC, SELFPAY ==
[2021-10-16 10:18] LABS: AST(SGOT) 20 U/L (15-37); Alanine Aminotransfer ALT/SGPT 28 U/L (13-56); Albumin, Serum 3.8 g/dL (3.2-5.0); Alkaline Phosphatase 65 U/L (45-117); Bilirubin, Direct 0.18 mg/dL (0.00-0.30); Cholesterol 169 mg/dL (200); Globulin 3.1 g/dL (2.2-4.2); High Density Lipoprotein 81 mg/dL; Protein, Total 6.9 g/dL (6.4-8.2); Triglycerides 76 mg/dL; Very Low Density Lipoprotein 15 mg/dL (5-40)
== END | disposition home or self-care (01) ==
LOC: MTLAB 08:13
PROVIDERS: PCP Family Medicine; Referring Provider Nurse Practitioner Family; Visit Provider Nurse Practitioner Family
DX: E78.00 Pure hypercholesterolemia, unspecified (principal); E78.5 Hyperlipidemia, unspecified; R74.8 Abnormal levels of other serum enzymes
CPT/HCPCS: 36415; 80061; 80076

== ENCOUNTER → 2021-11-15 | Outpatient (CLI) | payer MEDICARE, BC, SELFPAY ==
--- NOTE | 2021-11-14 15:15 | ASPS_PTH ---
PATIENT: SALVADOR GUTIERREZ LOC: [facility]#:[id number] AGE/SX: 76/F ROOM: RE11/15/[address]: Dr. Dwayne Vergara MD : 1945 BED: DIS: 11/15/2021 SPEC #: [id number] RECD: 11/15/21 08:01 STATUS: LILIANE COLEMAN #: [id number] BRAD: 11/14/21 15:[address]: Dwayne Vergara DEPT: CYTOLOGY RECD BY: Maria Del Carmen Duran ENTERED: 11/15/21 13:55 SP TYPE: ASPIRATION OTHR DR: Dr. Mushtaq Blum MD Tissues: Thyroid gland, NOS Procedures: Special Stain Group II Cytology Other HEADER OPERATION: Right thyroid fine needle aspiration PRE-OP DIAGNOSIS: Multiple thyroid nodules TISSUE SUBMITTED: Right thyroid x8 slides DIAGNOSIS CYTOLOGY Right thyroid nodule, fine needle aspiration (smears): Consistent with benign follicular/colloid nodule with focal cystic changes. Adequate for evaluation. See comment. SJ:earl 11/16/2021 COMMENT Correlation with clinical, radiologic findings and appropriate follow up are necessary. CYTOLOGY STUDY Slides are reviewed. CYTOLOGY GROSS Received are eight smears labeled with the patient's name and designated per the requisition as right thyroid. Submitted for staining. / earl 11/15/2021 TC:5 CPT: 70330
== END | disposition home or self-care (01) ==
LOC: LABSPEC 13:27
PROVIDERS: PCP Family Medicine; Visit Provider Surgery
DX: E04.2 Nontoxic multinodular goiter (principal)
CPT/HCPCS: 88161; 88313

== ENCOUNTER → 2022-03-18 | Outpatient (CLI) | payer MEDICARE, BC, SELFPAY ==
[2022-03-18 14:16] LABS: Hematocrit 29.3 % (37-47); Hemoglobin 9.9 g/dL (12.0-15.0); Mean Corp Hgb Conc 33.8 g/dL (32-36); Mean Corpuscular Hgb 31.6 pg (27.0-32.0); Mean Corpuscular Volume 93.6 fL (81-99); Mean Platelet Vol. 9.2 fl (6.2-12.0); Platelet Count 225 K/mm3 (150-450); RBC Distribution Width CV 14.2 % (11.6-14.6); RBC Distribution Width SD 47.8 fl (35.1-43.9); Red Blood Count 3.13 M/mm3 (4.2-5.4); White Blood Count 8.9 K/mm3 (4.4-11.0)
[2022-03-18 14:47] LABS: Anion Gap 4 (5-15); BUN 22 mg/dL (7-18); BUN/Creat Ratio 43.4 RATIO (10-20); Calcium,Total 9.9 mg/dL (8.5-10.1); Chloride 104 mmol/L (98-107); Creatinine, Serum 0.51 mg/dL (0.55-1.02); EST Glomerular Filtration Rate 126 mL/min (>60); Est Glom Filt Rate - Afr Amer 152 mL/min (>60); Glucose 102 mg/dL (74-106); Potassium 3.5 mmol/L (3.5-5.1); Sodium Level 139 mmol/L (136-145)
== END | disposition home or self-care (01) ==
LOC: LAB 13:16
PROVIDERS: PCP Family Medicine; Referring Provider Internal Medicine Cardiovascular Disease; Visit Provider Internal Medicine Cardiovascular Disease
DX: R53.83 Other fatigue (principal); R25.2 Cramp and spasm; R60.9 Edema, unspecified; R53.1 Weakness
CPT/HCPCS: 36415; 80048; 84443; 85027

== ENCOUNTER → 2022-03-20 | Outpatient (CLI) | payer MEDICARE, BC, SELFPAY ==
[2022-03-20 17:50] LABS: Absolute Lymphocyte Count 2.04 X10^3/uL (0.83-4.51); Absolute Neutrophil Count 4.2 X10^3/uL (2.0-7.7); Basophil# 0.02 X10^3/uL; Basophil% 0.3 % (0-1); Eosinophil# 0.07 X10^3/uL; Hematocrit 23.1 % (37-47); Hemoglobin 7.7 g/dL (12.0-15.0); Lymphocyte # 2.04 X10^3/ul (0.83-4.51); Lymphocyte % 30.3 % (19-41); Mean Corp Hgb Conc 33.3 g/dL (32-36); Mean Corpuscular Hgb 32.2 pg (27.0-32.0); Mean Corpuscular Volume 96.7 fL (81-99); Mean Platelet Vol. 9.4 fl (6.2-12.0); Monocyte# 0.43 X10^3/uL; Monocyte% 6.4 % (0-10); NRBC Flagged by Analyzer 0 % (0-5); Neutrophil # 4.15 X10^3/uL (2.7-7.7); Neutrophil % 61.7 % (47-70); Platelet Count 221 K/mm3 (150-450); RBC Distribution Width CV 14.4 % (11.6-14.6); RBC Distribution Width SD 50.1 fl (35.1-43.9); Red Blood Count 2.39 M/mm3 (4.2-5.4); Reticulocyte Count 4.24 % (0.5-1.5); White Blood Count 6.7 K/mm3 (4.4-11.0)
[2022-03-20 18:22] LABS: Ferritin 35 ng/mL (8-252); Iron 61 ug/dL (50-170); Iron Binding Capacity,Total 332 ug/dL (250-450); PERCENT IRON SATURATION 18.4 % (15.0-55.0)
== END | disposition home or self-care (01) ==
LOC: MFPLAB 16:16
PROVIDERS: PCP Family Medicine; Referring Provider Family Medicine; Visit Provider Family Medicine
DX: D64.9 Anemia, unspecified (principal)
CPT/HCPCS: 36415; 82728; 83540; 83550; 85025; 85045

== ENCOUNTER 2022-03-23 07:45 | Emergency (ER) | payer MEDICARE, BC, SELFPAY ==
[2022-03-23 07:46] VITALS: BP 139/73; PULSE 80; RESP 14; TEMP 36.3; O2SAT 100; BMI 24.8
--- NOTE | 2022-03-23 08:13 | EDS_ITS ---
HPI HPI - GI History of Present Illness Chief Complaint: GI Bleed Informant: patient Diarrhea/Melena/Hematochezia GI Symptom: Positive for Melena Onset: Weeks (Several) Stool Quality: Positive for Black Associated Symptoms Associated Symptoms: Negative for Dysuria, Frequency or Hematuria Narrative Narrative: Patient has been on aspirin and clopidogrel, and having black stools. Seen in the office several days ago by her PCP, then tested positive for Hemoccult in her black stool. Subsequently, aspirin and clopidogrel were discontinued, she was continued on her omeprazole 20 mg once daily, started on iron tablets, and set up to see GI Dr. Tineo on Friday; today is Friday. She woke up this morning feeling weaker than she had been, little lightheaded with standing but no near-syncope or syncope. Therefore she came to the ED as directed if she felt worse. She denies any chest discomfort or dyspnea even with light exertion, and no lateralizing neurologic symptoms, she does have a mild headache. She has had some nausea off and on but no vomiting. No abdominal pains. She denies seeing any bright red blood per rectum, the last bowel movement was yesterday she has not gone yet this morning. 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 Multiple thyroid nodules Presence of stent in coronary artery (~09/25/11) Sinus bradycardia Home Medications alendronate 70 mg tablet 70 mg PO Q7D@0700 07/08/16 [History Last Taken Unknown] citalopram 20 mg tablet 20 mg PO DAILY 07/08/16 [History Last Taken Unknown] levothyroxine 50 mcg tablet 50 mcg PO DAILY 07/08/16 [History Last Taken 11/08/19] multivitamin 1 ea PO DAILY 07/08/16 [History Last Taken Unknown] Lactobacillus acidophilus (Acidophilus capsule) 100 mg PO QDAY 06/18/17 [History Last Taken Unknown] ascorbic acid (vitamin C) 500 mg capsule 500 mg PO DAILY 02/01/19 [History Last Taken Unknown] cholecalciferol (vitamin D3) 25 mcg (1,000 unit) capsule 50 mcg PO DAILY 11/09/20 [History Last Taken Unknown] fluticasone propionate 50 mcg/actuation nasal spray,suspension (Allergy Relief (fluticasone)) 1 spray intranasal BID 04/23/21 [History Last Taken Unknown] losartan 25 mg tablet 25 mg PO DAILY #90 tabs 08/22/21 [Rx Last Taken Unknown] cyanocobalamin (vitamin B-12) 1,000 mcg tablet 500 mcg PO DAILY 10/24/21 [History Last Taken Unknown] omega-3 fatty acids 1,000 mg capsule (Fish Oil Concentrate) 1,000 mg PO DAILY 10/24/21 [History Last Taken Unknown] triamcinolone acetonide 0.1 % topical cream 1 applic topical BID 10/24/21 [History Last Taken Unknown] atorvastatin 20 mg tablet 20 mg PO DAILY #90 tabs 11/16/21 [Rx Last Taken Unknown] hydrochlorothiazide 25 mg tablet 25 mg PO DAILY #90 tabs 11/26/21 [Rx Last Taken Unknown] omeprazole 20 mg capsule,delayed release 20 mg PO BID #60 caps 03/23/22 [Rx Last Taken Unknown] potassium chloride 20 mEq tablet,extended release (K-Tab) 20 meq PO BID #6 tabs 03/23/22 [Rx Last Taken Unknown] Allergy/AdvReac Type Severity Reaction Status Date / Time amoxicillin [From Augmentin] Allergy Unknown swelling Verified 03/23/22 07:50 lips and tongue clavulanic acid Allergy Unknown swelling Verified 03/23/22 07:50 [From Augmentin] lips and tongue Family History Father Myocardial infarction Mother Sudden cardiac Brother Sudden cardiac Myocardial infarction Brother CAD (coronary artery disease) Hx of CABG Brother CAD (coronary artery disease) Hx of CABG Brother Presence of permanent cardiac pacemaker Surgical History History of cholecystectomy History of lateral meniscus repair of right knee History of tonsillectomy and adenoidectomy History of total hysterectomy Hx of appendectomy Presence of coronary angioplasty implant and graft (~09/25/11) S/P thyroid biopsy (~2002) S/P thyroid biopsy (~11/2021) Social History Smoking Status: Never smoker alcohol intake: never substance use type: does not use caffeine: Yes Type: coffee and tea Number of servings: 1 ROS ROS ED Constitutional Constitutional ED: Reports fatigue and weakness; Denies chills or fever(s) Eyes Eyes: Denies change in vision or diplopia ENT ENT ED: Denies rhinorrhea or sore throat Cardiovascular Cardiovascular: Denies chest pain or palpitations Respiratory/Chest Respiratory/Chest: Denies cough or dyspnea Gastrointestinal Gastrointestinal: Reports melena and nausea; Denies abdominal pain, diarrhea or vomiting Genitourinary Genitourinary ED: Denies dysuria or hematuria Musculoskeletal Musculoskeletal: Denies back pain or neck pain Integumentary Denies abscess or rash Neurologic Neurologic: Reports headache(s); Denies paresthesias or weakness Psychiatric Psychiatric: Denies anxiety or suicidal thoughts EXAM Physical Exam Const Vital Signs: 03/23/22 07:46 03/23/22 09:49 Temperature 97.4 F L Temperature Source Temporal Pulse Rate 80 Pulse Rate [Lying] 57 L Pulse Rate [Sitting (for 1 minute prior to obtaining)] 59 L Pulse Rate [Standing (for 1 minute prior to obtaining)] 62 Respiratory Rate 14 Blood Pressure 139/73 H Blood Pressure [Lying] 120/44 L Blood Pressure [Sitting (for 1 minute prior to obtaining)] 138/54 H Blood Pressure [Standing (for 1 minute prior to obtaining)] 133/63 H Blood Pressure Mean 95 Blood Pressure Mean [Lying] 69 Blood Pressure Mean [Sitting (for 1 minute prior to obtaining)] 82 Blood Pressure Mean [Standing (for 1 minute prior to obtaining)] 86 Pulse Ox 100 Oxygen Delivery Method Room Air Positive well nourished and well developed Constitutional Narrative: Well-appearing conversive in full sentences no tachycardia General Appearance ED: well developed and NAD HEENT Reports moist mucous membranes normocephalic and atraumatic Eyes PERRL and EOMs intact bilaterally Neck full ROM and supple Resp normal respiratory effort and clear to auscultation bilaterally Cardio regular rate, regular rhythm and no murmurs GI non-tender and non-distended Auscultation: normoactive bowel sounds Palpation: soft Back/Spine no CVA tenderness General Back: other FROM Extremity normal to inspection General Extremety ED: Negative for edema, pulses abnormal or tenderness General Extremity: Negative for edema or pulses abnormal Neuro oriented x3, CN's II-XII intact bilaterally and no sensory deficits noted Sensorium / Orientation: awake and alert Motor Exam: strength 5/5 throughout Psych mental status grossly normal and thought process normal Skin no rashes or lesions noted and no wounds MDM MDM MDM Narrative Medical decision making narrative: Labs show the patient's hemoglobin is now 8.1, up slightly from several days ago, which is reassuring since it is not going down. Orthostatics are negative, all of this is consistent with the lack of continued hemodynamically significant bleeding, and the patient does have a low potassium which certainly could be causing her weakness this morning. I gave her some replacement there and since her kidney function is normal, I will prescribe her several days more, and advised that she double her omeprazole to 20 mg twice daily until she follows up with GI later this week. She and family are comfortable with that overall plan. Lab Data Attestation: I reviewed the patient's lab results. Labs: Laboratory Results - last 24 hr 03/23/22 03/23/22 08:42 08:42 WBC 5.3 RBC 2.52 L Hgb 8.1 L Hct 25.2 L MCV 100.0 H MCH 32.1 H MCHC 32.1 RDW Std Deviation 53.1 H RDW Coeff of Margarita 16.5 H Plt Count 256 MPV 8.4 Immature Gran % (Auto) 0.200 Neut % (Auto) 61.6 Lymph % (Auto) 29.3 [place] % (Auto) 7.4 Eos % (Auto) 1.3 Baso % (Auto) 0.2 Absolute Neuts (auto) 3.2 Absolute Lymphs (auto) 1.54 Nucleated RBC % 0 Sodium 139 Potassium 3.2 L Chloride 103 Carbon Dioxide 31.0 Anion Gap 5 BUN 12 Creatinine 0.59 Estim Creat Clear Calc 43.47 Est GFR (MDRD) Af Amer 128 Est GFR (MDRD) Non-Af 105 BUN/Creatinine Ratio 20.3 H Glucose 96 Calcium 10.3 H Discharge Plan Triage Chief Complaint: GI Bleed ED Provider: Yosvany Nye Dx/Rx/DC Orders Clinical Impression: Occult GI bleeding, Acute hypokalemia, Chronic blood loss anemia Instructions: ED Hypokalemia Prescriptions: New potassium chloride [K-Tab] 20 mEq tablet extended release 20 meq PO BID Qty: 6 0RF Continued Lactobacillus acidophilus [Acidophilus] capsule 100 mg PO QDAY ascorbic acid (vitamin C) 500 mg capsule 500 mg PO DAILY cholecalciferol (vitamin D3) 25 mcg (1,000 unit) capsule 50 mcg PO DAILY fluticasone propionate [Allergy Relief (fluticasone)] 50 mcg/actuation spray,suspension 1 spray intranasal BID Rx Instructions: administer into each nostril omega-3 fatty acids [Fish Oil Concentrate] 1,000 mg capsule 1,000 mg PO DAILY triamcinolone acetonide 0.1 % cream 1 applic topical BID Label Comments: APPLY TO THE AFFECTED AREA(S) TWICE DAILY multivitamin 1 EACH tablet 1 ea PO DAILY alendronate 70 MG tablet 70 mg PO Q7D@0700 citalopram 20 MG tablet 20 mg PO DAILY levothyroxine 50 MCG tablet 50 mcg PO DAILY cyanocobalamin (vitamin B-12) 1,000 mcg tablet 500 mcg PO DAILY losartan 25 mg tablet 25 mg PO DAILY Qty: 90 3RF atorvastatin 20 mg tablet 20 mg PO DAILY Qty: 90 3RF Hold Instructions: myalgias hydrochlorothiazide 25 mg tablet 25 mg PO DAILY Qty: 90 3RF Changed omeprazole 20 mg capsule,delayed release(DR/EC) 20 mg PO BID Qty: 60 0RF Discontinued aspirin 81 MG tablet 81 mg PO DAILY@0800 Rx Instructions: will stop 5 days prior clopidogrel 75 mg tablet 75 mg PO DAILY Qty: 90 3RF Primary Care Provider: Mushtaq Blum Referrals: Musthaq Blum MD [Primary Care Provider] - Mahad Tineo MD [Non-Staff] - [facility] appointment Disposition Disposition: Home, Self Care
[2022-03-23 08:52] LABS: Absolute Lymphocyte Count 1.54 X10^3/uL (0.83-4.51); Absolute Neutrophil Count 3.2 X10^3/uL (2.0-7.7); Basophil# 0.01 X10^3/uL; Basophil% 0.2 % (0-1); Eosinophil# 0.07 X10^3/uL; Eosinophils% 1.3 % (0-5); Hematocrit 25.2 % (37-47); Hemoglobin 8.1 g/dL (12.0-15.0); Lymphocyte # 1.54 X10^3/ul (0.83-4.51); Lymphocyte % 29.3 % (19-41); Mean Corp Hgb Conc 32.1 g/dL (32-36); Mean Corpuscular Hgb 32.1 pg (27.0-32.0); Mean Platelet Vol. 8.4 fl (6.2-12.0); Monocyte# 0.39 X10^3/uL; Monocyte% 7.4 % (0-10); NRBC Flagged by Analyzer 0 % (0-5); Neutrophil # 3.24 X10^3/uL (2.7-7.7); Neutrophil % 61.6 % (47-70); Platelet Count 256 K/mm3 (150-450); RBC Distribution Width CV 16.5 % (11.6-14.6); RBC Distribution Width SD 53.1 fl (35.1-43.9); Red Blood Count 2.52 M/mm3 (4.2-5.4); White Blood Count 5.3 K/mm3 (4.4-11.0)
[2022-03-23 09:02] LABS: Anion Gap 5 (5-15); BUN 12 mg/dL (7-18); BUN/Creat Ratio 20.3 RATIO (10-20); Calcium,Total 10.3 mg/dL (8.5-10.1); Chloride 103 mmol/L (98-107); Creatinine, Serum 0.59 mg/dL (0.55-1.02); EST Glomerular Filtration Rate 105 mL/min (>60); Est Glom Filt Rate - Afr Amer 128 mL/min (>60); Estimated Creatinine Clearance 43.47 ml/min; Glucose 96 mg/dL (74-106); Potassium 3.2 mmol/L (3.5-5.1); Sodium Level 139 mmol/L (136-145)
[2022-03-23 09:49] VITALS: BP 120/44; BP 133/63; BP 138/54; PULSE 57; PULSE 59; PULSE 62
[2022-03-23] MEDS: Potassium Chloride Oral Tablet 20 MEQ 40 MEQ PO (09:56)
[2022-03-23 11:00] VITALS: BP 134/75; PULSE 66; RESP 18; TEMP 36.6; O2SAT 97
== END 2022-03-23 11:10 | disposition home or self-care (01) ==
PROVIDERS: Emergency Provider Emergency Medicine; PCP Family Medicine; Visit Provider Emergency Medicine
DX: K92.2 Gastrointestinal hemorrhage, unspecified (principal); R19.7 Diarrhea, unspecified; E87.6 Hypokalemia; I25.10 Atherosclerotic heart disease of native coronary artery without angina pectoris; D50.0 Iron deficiency anemia secondary to blood loss (chronic); I10 Essential (primary) hypertension; R11.0 Nausea; Z82.49 Family history of ischemic heart disease and other diseases of the circulatory system
CPT/HCPCS: 80048; 85025; 86850; 86900; 86901; 99284; J7050; A4216; J3490

== ENCOUNTER → 2022-04-02 | Outpatient (CLI) | payer MEDICARE, BC, SELFPAY ==
--- NOTE | 2022-04-02 13:41 | BI_ITS ---
MAMMOGRAPHY - BILATERAL SCREENING REASON FOR EXAM: Female, 76 years old. Routine annual screening examination. PERTINENT HISTORY: Non-contributory. TECHNIQUE: Digital bilateral breast faviola (3D mammographic acquisition) in the CC and MLO projections. 2-D mediolateral oblique (MLO) and craniocaudad (CC) views of both breasts were obtained. CAD: Full Field Digital Mammography with Computer Added Detection was performed. COMPARISON: 10/25/2020, 10/11/2019. FINDINGS: Breast Composition: There are scattered areas of fibroglandular density. There are no dominant masses or suspicious calcifications. No other significant abnormalities are identified. There has been no significant change since the prior study. BI/SCRN MAMM (CAD)W/FAVIOLA BILAT IMPRESSION: Stable bilateral screening mammogram. Yearly follow-up mammogram recommended. (A) ASSESSMENT CATEGORY: BIRADS Category 1: Negative. A letter regarding these results will be sent to the patient by the facility within 30 days. Approximately 10% of breast cancers are not detected by mammography. A normal mammogram should not delay biopsy of a clinically suspicious abnormality. Electronically Signed: Tru Khan, at 10:06 EST ,
== END | disposition home or self-care (01) ==
LOC: OPBI 13:39
PROVIDERS: PCP Family Medicine; Referring Provider Family Medicine; Visit Provider Family Medicine
DX: Z12.31 Encounter for screening mammogram for malignant neoplasm of breast (principal)
CPT/HCPCS: 77063; 77067

== ENCOUNTER → 2022-04-10 | Outpatient (CLI) | payer MEDICARE, BC, SELFPAY ==
[2022-04-10 17:53] LABS: Hematocrit 36.3 % (37-47); Hemoglobin 11.5 g/dL (12.0-15.0); Mean Corp Hgb Conc 31.7 g/dL (32-36); Mean Corpuscular Hgb 33.4 pg (27.0-32.0); Mean Corpuscular Volume 105.5 fL (81-99); Mean Platelet Vol. 9.4 fl (6.2-12.0); Platelet Count 281 K/mm3 (150-450); RBC Distribution Width CV 16.2 % (11.6-14.6); RBC Distribution Width SD 63.9 fl (35.1-43.9); Red Blood Count 3.44 M/mm3 (4.2-5.4); White Blood Count 4.8 K/mm3 (4.4-11.0)
[2022-04-10 18:13] LABS: Iron 55 ug/dL (50-170)
== END | disposition home or self-care (01) ==
LOC: MTLAB 14:29
PROVIDERS: PCP Family Medicine; Referring Provider Internal Medicine Gastroenterology; Visit Provider Internal Medicine Gastroenterology
DX: D50.9 Iron deficiency anemia, unspecified (principal)
CPT/HCPCS: 36415; 83540; 85027

== ENCOUNTER → 2022-05-15 | Outpatient (CLI) | payer MEDICARE, BC, SELFPAY ==
[2022-05-15 12:54] LABS: Hematocrit 42.1 % (37-47); Hemoglobin 13.7 g/dL (12.0-15.0); Mean Corp Hgb Conc 32.5 g/dL (32-36); Mean Corpuscular Hgb 32.4 pg (27.0-32.0); Mean Corpuscular Volume 99.5 fL (81-99); Mean Platelet Vol. 10.1 fl (6.2-12.0); Platelet Count 217 K/mm3 (150-450); RBC Distribution Width CV 12.5 % (11.6-14.6); RBC Distribution Width SD 45.5 fl (35.1-43.9); Red Blood Count 4.23 M/mm3 (4.2-5.4)
[2022-05-15 13:11] LABS: AST(SGOT) 16 U/L (15-37); Alanine Aminotransfer ALT/SGPT 30 U/L (13-56); Albumin, Serum 3.9 g/dL (3.2-5.0); Alkaline Phosphatase 66 U/L (45-117); BUN 16 mg/dL (7-18); BUN/Creat Ratio 27.6 RATIO (10-20); Calcium,Total 10.3 mg/dL (8.5-10.1); Creatinine, Serum 0.58 mg/dL (0.55-1.02); EST Glomerular Filtration Rate 108 mL/min (>60); Est Glom Filt Rate - Afr Amer 130 mL/min (>60); Globulin 2.6 g/dL (2.2-4.2); Glucose 79 mg/dL (74-106); Protein, Total 6.5 g/dL (6.4-8.2)
[2022-05-15 13:12] LABS: Anion Gap 5 (5-15); Chloride 105 mmol/L (98-107); Cholesterol 149 mg/dL (200); High Density Lipoprotein 86 mg/dL; Potassium 3.8 mmol/L (3.5-5.1); Sodium Level 141 mmol/L (136-145); Triglycerides 62 mg/dL; Very Low Density Lipoprotein 12 mg/dL (5-40)
== END | disposition home or self-care (01) ==
LOC: MTLAB 09:19
PROVIDERS: PCP Family Medicine; Referring Provider Internal Medicine Cardiovascular Disease; Visit Provider Internal Medicine Cardiovascular Disease
DX: E78.00 Pure hypercholesterolemia, unspecified (principal); R53.1 Weakness; R53.83 Other fatigue; I10 Essential (primary) hypertension
CPT/HCPCS: 36415; 80048; 80061; 80076; 85027

== ENCOUNTER → 2022-06-19 | Outpatient (CLI) | payer MEDICARE, BC, SELFPAY ==
[2022-06-19 13:12] LABS: Free T3 2.1 pg/mL (2.18-3.98); T4 Free Direct 1.05 ng/dL (0.76-1.46); Thyroid Stim Hormone (TSH) 0.71 uIU/mL (0.358-3.74)
== END | disposition home or self-care (01) ==
LOC: MFPLAB 10:19
PROVIDERS: PCP Family Medicine; Referring Provider Family Medicine; Visit Provider Family Medicine
DX: E03.9 Hypothyroidism, unspecified (principal)
CPT/HCPCS: 36415; 84439; 84443; 84481

== ENCOUNTER → 2022-07-22 | Outpatient (CLI) | payer MEDICARE, BC, SELFPAY ==
[2022-07-22 09:48] LABS: Hematocrit 41.1 % (37-47); Hemoglobin 13.7 g/dL (12.0-15.0); Mean Corp Hgb Conc 33.3 g/dL (32-36); Mean Corpuscular Hgb 31.4 pg (27.0-32.0); Mean Corpuscular Volume 94.3 fL (81-99); Platelet Count 217 K/mm3 (150-450); RBC Distribution Width CV 13.4 % (11.6-14.6); RBC Distribution Width SD 46.4 fl (35.1-43.9); Red Blood Count 4.36 M/mm3 (4.2-5.4); White Blood Count 5.1 K/mm3 (4.4-11.0)
[2022-07-22 10:40] LABS: Ferritin 59 ng/mL (8-252); Iron 114 ug/dL (50-170)
== END | disposition home or self-care (01) ==
LOC: MTLAB 09:08
PROVIDERS: PCP Family Medicine; Visit Provider Internal Medicine Gastroenterology
DX: D50.9 Iron deficiency anemia, unspecified (principal)
CPT/HCPCS: 36415; 82728; 83540; 85027

== ENCOUNTER → 2022-10-24 | Outpatient (CLI) | payer MEDICARE, BC, SELFPAY ==
[2022-10-24 12:51] LABS: ALB/GLOB Ratio 1.2 RATIO (0.9-2.4); AST(SGOT) 21 U/L (15-37); Alanine Aminotransfer ALT/SGPT 25 U/L (13-56); Albumin, Serum 3.7 g/dL (3.2-5.0); Alkaline Phosphatase 69 U/L (45-117); Anion Gap 2 (5-15); BUN 13 mg/dL (7-18); BUN/Creat Ratio 24.4 RATIO (10-20); Calcium,Total 10.3 mg/dL (8.5-10.1); Chloride 109 mmol/L (98-107); Cholesterol 134 mg/dL (200); Creatinine, Serum 0.53 mg/dL (0.55-1.02); EST Glomerular Filtration Rate 119 mL/min (>60); Est Glom Filt Rate - Afr Amer 144 mL/min (>60); Free T3 2.2 pg/mL (2.18-3.98); Globulin 3.1 g/dL (2.2-4.2); Glucose 89 mg/dL (74-106); High Density Lipoprotein 80 mg/dL; Potassium 3.9 mmol/L (3.5-5.1); Protein, Total 6.8 g/dL (6.4-8.2); Sodium Level 140 mmol/L (136-145); T4 Free Direct 0.99 ng/dL (0.76-1.46); Thyroid Stim Hormone (TSH) 0.64 uIU/mL (0.358-3.74); Triglycerides 40 mg/dL; Very Low Density Lipoprotein 8 mg/dL (5-40)
--- NOTE | 2022-10-24 12:55 | US_ITS ---
STUDY: THYROID ULTRASOUND REASON FOR EXAM: Female, 77 years old. Thyroid nodules. TECHNIQUE: Ultrasound evaluation of the thyroid was performed with real-time and static abdul-scale imaging. COMPARISON: October 12, 2021 FINDINGS: RIGHT LOBE: The right lobe of the thyroid gland measures 4.5 x 1.5 x 1.8 cm. There is a homogeneous echotexture. The central thyroid there is no irregularity or spongiform nodule measuring 2.1 x 1.2 x 1.4 cm in size in the lower pole there is a 0.5 x 0.2 x 0.4 cm hypoechoic nodule normal vascularity and Doppler imaging. LEFT LOBE: The left lobe of the thyroid gland measures 4.9 x 1.4 x 1.4 cm. There is a homogeneous echotexture. In the mid to lower thyroid there is a spongiform 1.1 x 0.7 x 0.9 cm nodule. In the upper pole there is a mixed solid and cystic lesion measuring 2.4 x 0.4 x 0.5 cm. In the lower pole there is a isoechoic nodule with hypoechoic rim measuring 0.7 x 0.4 x 0.5 cm ISTHMUS: The isthmus measures 0.3 cm. The regional lymph nodes are normal. US/Thyroid IMPRESSION: 1. No Bilateral thyroid nodules. 2. The largest nodules in both thyroid are essentially unchanged and are considered benign by TI-RADS characterization requires no follow-up. 3. A small hypoechoic nodule on the right is considered moderately suspicious, TR 4. No FNA or follow-up is required due to its small size. 4. The 2 small nodules in the left left thyroid are consistent benign, TR 2 and require no follow-up. Electronically Signed: Ru Barger DO at 19:59 EDT Reading Location ID and State: [id number] Tel [phone], Service support ,
== END | disposition home or self-care (01) ==
LOC: US 11:11
PROVIDERS: PCP Family Medicine; Referring Provider Surgery; Visit Provider Surgery
DX: Z00.00 Encounter for general adult medical examination without abnormal findings (principal); E03.9 Hypothyroidism, unspecified
CPT/HCPCS: 36415; 76536; 80053; 80061; 84439; 84443; 84481

== ENCOUNTER → 2022-11-25 | Outpatient (CLI) | payer MEDICARE, BC, SELFPAY ==
[2022-11-25 10:31] LABS: AST(SGOT) 16 U/L (15-37); Alanine Aminotransfer ALT/SGPT 23 U/L (13-56); Albumin, Serum 3.6 g/dL (3.2-5.0); Alkaline Phosphatase 63 U/L (45-117); Bilirubin, Direct 0.13 mg/dL (0.00-0.30); Cholesterol 135 mg/dL (200); Globulin 3.1 g/dL (2.2-4.2); High Density Lipoprotein 79 mg/dL; Protein, Total 6.7 g/dL (6.4-8.2); Triglycerides 60 mg/dL; Very Low Density Lipoprotein 12 mg/dL (5-40)
== END | disposition home or self-care (01) ==
LOC: MTLAB 09:01
PROVIDERS: Nurse Practitioner Family; PCP Family Medicine; Referring Provider Internal Medicine Cardiovascular Disease; Visit Provider Internal Medicine Cardiovascular Disease
DX: E78.00 Pure hypercholesterolemia, unspecified (principal)
CPT/HCPCS: 36415; 80061; 80076

== ENCOUNTER → 2022-12-17 | Outpatient (CLI) | payer MEDICARE, BC, SELFPAY ==
--- NOTE | 2022-12-19 12:49 | STRESSREP ---
Stress Test Report Date: 12/17/2022 Procedure: Pharmacologic stress nuclear imaging study Indications: Coronary artery disease Consent: Per the patient Procedure: The patient underwent pharmacologic (Regadenoson 0.4mg ) evaluation with a peak heart rate of 74 beats per minute (51%predicted maximal heart rate) and a peak blood pressure of 136/68 mmHg. The baseline ECG demonstrated sinus rhythm with left bundle branch block. The peak pharmacologic ECG was nondiagnostic secondary to baseline abnormalities. There were no cardiac dysrhythmias pretest, during pharmacologic infusion, or recovery. There was no complaint of chest discomfort during pharmacologic infusion or recovery. The patient was injected with 11.7 millicuries of technetium 99m Cardiolite and subsequently rest SPECT Cardiolite nuclear imaging was obtained in the horizontal long, vertical long, and short axis views. The patient underwent pharmacologic (Regadenoson) evaluation. The patient was injected with 33.3 millicuries of technetium 99m Cardiolite and subsequently stress SPECT Cardiolite nuclear imaging was obtained in the horizontal long, vertical long, and short axis views. A gated Cardiolite study at peak stress was obtained. The examination was stopped secondary to completion of protocol. Rest and stress SPECT Cardiolite nuclear imaging status post realignment, normalization, and attenuation correction demonstrate an apical defect which actually looks better and stress images and worse on rest images. Likely shifting soft tissue attenuation artifact. There is end systolic thickening and brightening. The gated Cardiolite study demonstrates myocardial thickening and inward wall motion. The reported LVEF is 72%. Impression: 1. Pharmacologic (Regadenoson) evaluation 2. Peak pharmacologic ECG with no diagnostic changes secondary to baseline abnormalities. 3. There were no cardiac dysrhythmias pretest, during pharmacologic infusion, or recovery. 5. No reversible perfusion defects. 6. The gated Cardiolite study reports an LVEF of 72%. This note was generated with [employer] software. It may contain incorrect words, spelling, and punctuation that were not noted in checking the note before signing.
== END | disposition home or self-care (01) ==
LOC: CVS 06:48
PROVIDERS: PCP Family Medicine; Referring Provider Nurse Practitioner Family; Visit Provider Nurse Practitioner Family
DX: I25.10 Atherosclerotic heart disease of native coronary artery without angina pectoris (principal); I44.7 Left bundle-branch block, unspecified; E78.5 Hyperlipidemia, unspecified; I10 Essential (primary) hypertension
CPT/HCPCS: 78452; 93017; A9500; A4216; J2785

== ENCOUNTER → 2023-04-21 | Outpatient (CLI) | payer MEDICARE, BC, SELFPAY ==
[2023-04-21 16:17] LABS: ALB/GLOB Ratio 1.2 RATIO (0.9-2.4); AST(SGOT) 22 U/L (15-37); Alanine Aminotransfer ALT/SGPT 27 U/L (13-56); Albumin, Serum 3.8 g/dL (3.2-5.0); Alkaline Phosphatase 67 U/L (45-117); Anion Gap 4 (5-15); BUN 10 mg/dL (7-18); BUN/Creat Ratio 15.6 RATIO (10-20); Calcium,Total 9.9 mg/dL (8.5-10.1); Chloride 105 mmol/L (98-107); Cholesterol 145 mg/dL (200); Creatinine, Serum 0.64 mg/dL (0.55-1.02); EST Glomerular Filtration Rate 96 mL/min (>60); Est Glom Filt Rate - Afr Amer 116 mL/min (>60); Free T3 2.1 pg/mL (2.18-3.98); Globulin 3.3 g/dL (2.2-4.2); Glucose 80 mg/dL (74-106); High Density Lipoprotein 82 mg/dL; Potassium 3.9 mmol/L (3.5-5.1); Protein, Total 7.1 g/dL (6.4-8.2); Sodium Level 139 mmol/L (136-145); T4 Free Direct 1.03 ng/dL (0.76-1.46); Thyroid Stim Hormone (TSH) 1.01 uIU/mL (0.358-3.74); Triglycerides 99 mg/dL; Very Low Density Lipoprotein 20 mg/dL (5-40)
== END | disposition home or self-care (01) ==
LOC: MFPLAB 11:17
PROVIDERS: PCP Family Medicine; Visit Provider Family Medicine
DX: E03.9 Hypothyroidism, unspecified (principal); I10 Essential (primary) hypertension
CPT/HCPCS: 36415; 80053; 80061; 84439; 84443; 84481

== ENCOUNTER → 2023-04-28 | Outpatient (CLI) | payer MEDICARE, BC, SELFPAY ==
--- NOTE | 2023-04-28 12:31 | BI_ITS ---
MAMMOGRAPHY - BILATERAL SCREENING REASON FOR EXAM: Female, 78 years old. Routine annual screening examination. PERTINENT HISTORY: Non-contributory. TECHNIQUE: Digital bilateral breast faviola (3D mammographic acquisition) in the CC and MLO projections. 2-D mediolateral oblique (MLO) and craniocaudad (CC) views of both breasts were obtained. CAD: Full Field Digital Mammography with Computer Added Detection was performed. COMPARISON: Comparison is made with prior study dated April 02, 2022 and October 25, 2020. FINDINGS: Breast Composition: There are scattered areas of fibroglandular density. There are no dominant masses or suspicious calcifications. No other significant abnormalities are identified. There has been no significant change since the prior study. BI/SCRN MAMM (CAD)W/FAVIOLA BILAT IMPRESSION: Stable bilateral screening mammogram. Yearly follow-up mammogram recommended. (A) ASSESSMENT CATEGORY: BIRADS Category 1: Negative. A letter regarding these results will be sent to the patient by the facility within 30 days. Approximately 10% of breast cancers are not detected by mammography. A normal mammogram should not delay biopsy of a clinically suspicious abnormality. [id number] Electronically Signed: Josafat Corey MD at 13:29 EST ,
== END | disposition home or self-care (01) ==
LOC: OPBI 12:30
PROVIDERS: PCP Family Medicine; Referring Provider Family Medicine; Visit Provider Family Medicine
DX: Z12.31 Encounter for screening mammogram for malignant neoplasm of breast (principal)
CPT/HCPCS: 77063; 77067

== ENCOUNTER → 2023-05-22 | Outpatient (CLI) | payer MEDICARE, BC, SELFPAY ==
--- NOTE | 2023-05-22 09:20 | ASPS_PTH ---
PATHOLOGY RESULTS PATIENT: SALVADOR GUTIERREZ LOC: [facility] U#:[id number] AGE/SX: 78/F ROOM: RE05/22/[address]: Dr. Dwayne Vergara MD : 1945 BED: DIS: 05/22/2023 SPEC #: [id number] RECD: 05/22/23 11:10 STATUS: LILIANE JARED #: [id number] BRAD: 05/22/23 09:[address]: Dwayne Vergara DEPT: CYTOLOGY RECD BY: Maria Del Carmen Duran ENTERED: 05/22/23 11:45 SP TYPE: ASPIRATION OTHR DR: Dr. Mushtaq Blum MD Tissues: Thyroid gland, NOS Procedures: Special Stain Group II Cytology Other HEADER OPERATION: Right thyroid biopsy PRE-OP DIAGNOSIS: Right thyroid nodule TISSUE SUBMITTED: Right thyroid biopsy x8 slides DIAGNOSIS CYTOLOGY Right thyroid, fine needle aspiration (smears): Consistent with benign follicular/colloid nodule ([place] Category II). Adequate for evaluation. See comment. SJ:earl 05/22/2023 COMMENT Correlation with clinical, radiologic findings and appropriate follow up are necessary. The [place] System for thyroid diagnostic categorization was used in the evaluation of this case. Please make reference to previous specimen ([id number]), right thyroid nodule, FNA with diagnosis of consistent with benign follicular/colloid nodule with focal cystic changes. CYTOLOGY STUDY Slides are reviewed. CYTOLOGY GROSS Received are eight smears labeled with the patient's name and designated per the requisition as right thyroid. Submitted for staining. / earl 05/22/2023 TC:5 CPT: 50714
== END | disposition home or self-care (01) ==
LOC: LABSPEC 11:17
PROVIDERS: PCP Family Medicine; Referring Provider Surgery; Visit Provider Surgery
DX: E04.1 Nontoxic single thyroid nodule (principal)
CPT/HCPCS: 88161; 88313

== ENCOUNTER → 2023-06-23 | Outpatient (CLI) | payer MEDICARE, BC, SELFPAY ==
--- OUTSIDE RECORDS SUMMARY | 2023-06-23 09:44 | XMS RPT_ITS | CCD ---
Author Name Unknown Address [address] [place] [address] Organization [facility] Care Team Providers Care Senior Producer Name Role Phone Luis Armando Caldera Unavailable Unavailable Luis Armando Caldera Unavailable Unavailable Mushtaq Edwards MD Unavailable [phone] Benny Gao Admitting Unavailable Benny Gao Attending Unavailable Mushtaq Rose Primary Care Unavailable Luis Armando Caldera Unavailable Unavailable Unavailable Primary Care Provider Mushtaq Nguyen MD Primary Care Provider REYNOLD DIEHL JR. Attending Unavailable MUSHTAQ ROSE Primary Care Unavailable MARCO REYES, REYNOLD Attending Unavailable MUSHTAQ ROSE Primary Care Unavailable MARCO REYES, REYNOLD Attending Unavailable MUSHTAQ ROSE Primary Care Unavailable MARCO REYES, REYNOLD Attending Unavailable MUSHTAQ ROSE Primary Care Unavailable Allergies Allergy Classification Reported Allergen(s) Allergy Type Date of Onset Reaction(s) Facility (3 sources) NKDA drug allergy 08-14-2011 [facility] Work Phone: (3 sources) NKA drug allergy 08-14-2011 [facility] Work Phone: Medications Current Medications Medication Drug Class(es) Dates Sig (Normalized) Sig (Original) Ascorbic Acid (5 sources) Vitamin C ASCORBIC ACID OR AL Take by mouth daily . 0 Active CHOLECALCIFEROL, VITAMIN D3, ORAL (5 sources) CHOLECALCIFEROL, VITAMIN D3, ORAL Take by mouth daily . 0 Active CYANOCOBALAMIN, VITAMIN B-12, ORAL (5 sources) CYANOCOBALAMIN, VITAMIN B-12, ORAL Take by mouth . 0 Active ammonium lactate 120 mg/ml topical cream (1 source) Start: 04-27-2021 End: 07-26-2021 ammonium lactate (AMLACTIN) 12 % cream Indications: Hyperkeratosis Apply topically 2 (two) times a day . 385 g 3 04/27/2021 07/26/2021 Active Lactobac 42/Bifid 8/colost/FOS (PROBIOTIC PLUS COLOSTRUM ORAL) (5 sources) Lactobac 42/Bifi d 8/colost/FOS (PROBIOTIC PLUS COLOSTRUM ORAL) Take by mouth daily . 0 Active MULTIVITAMIN ORAL (5 sources) MULTIVITAMIN ORA L Take by mouth . 0 Active Omeprazole (5 sources) Proton Pump Inhibitor OMEPRAZOLE ORAL Take by mouth daily . 0 Active Completed/Discontinued Medications Medication Drug Class(es) Dates Sig (Normalized) Sig (Original) alendronic acid 70 mg oral tablet (9 sources) Bisphosphonate Start: 08-14-2011 take 1 tablet by mouth every week FOSAMAX 70 MG TABS One tablet by mouth weekly ALENDRONATE SODIUM [id number] Alivia Dey RN Problems Active Problems Problem Classification Problem Date Documented Da te Episodic/Chronic Cardiac dysrhythmias (8 sources) Bradycardia; Translations: [Sinus bradycardia] Onset: 08-14-2011 08-14-2011 Chronic Cataract (6 sources) Cataract; Translations: [Unspecified cataract] Chronic Conduction disorders (4 sources) Left bundle branch block; Translations: [Left bundle-branch block, unspecified] Onset: 06-28-2014 06-28-2014 Chronic Coronary atherosclerosis and other heart disease (8 sources) Angina pectoris; Translations: [Coronary arteriosclerosis] Onset: 12-02-2011 06-17-2016 Chronic Disorders of lipid metabolism (10 sources) Hyperlipidemia; Translations: [Hypercholesterolem ia] Onset: 08-14-2011 08-14-2011 Chronic Essential hypertension (10 sources) Hypertensive disorder; Translations: [Essential (primary) hypertension] Onset: 08-14-2011 08-14-2011 Chronic Headache; including migraine (5 sources) Headache; Translations: [Headache] 11-13-2020 Episodic Osteoarthritis (6 sources) Arthritis; Translations: [Unspecified osteoarthritis, unspecified site] Chronic Other and ill-defined heart disease (6 sources) Heart disease; Translations: [Heart disease, unspecified] Chronic Other connective tissue disease (9 sources) Ganglion of foot; Translations: [Ganglion, unspecified ankle and foot] Onset: 10-25-2020 Episodic Other connective tissue disease (1 source) Ganglion cyst; Translations: [Ganglion, right hip] Episodic Other liver diseases (6 sources) Disease of liver; Translations: [Liver disease, unspecified] Chronic Other liver diseases (6 sources) Elevated liver enzymes level; Translations: [Abnormal levels of other serum enzymes] Episodic Other nutritional; endocrine; and metabolic disorders (7 sources) Body mass index (BMI) 30.0-30.9, adult; Translations: [Body mass index (BMI) 31.0-31.9, adult] Onset: 04-19-2015 04-19-2015 Chronic Other nutritional; endocrine; and metabolic disorders (1 source) Body mass index (BMI) 31.0-31.9, adult; Translations: [Body mass index (BMI) 31.0-31.9, adult] Onset: 04-19-2015 06-17-2016 Chronic Other skin disorders (2 sources) Keratosis; Translations: [Epidermal thickening, unspecified] Onset: 06-25-2019 Episodic Thyroid disorders (6 sources) Disorder of thyroid gland; Translations: [Disorder of thyroid, unspecified] Episodic Unclassified (2 sources) Long-term drug therapy; Translations: [Long-term (current) use of other medications] Onset: 09-30-2011 09-30-2011 Varicose veins of lower extremity (6 sources) Asymptomatic varicose veins of unspecified lower extremity; Translations: [Asymptomatic varicose veins] Episodic Past or Other Problems Problem Classification Problem Date Documented Date Episodic/Chronic Coronary atherosclerosis and other heart disease (4 sources) Coronary angioplasty status; Translations: [Coronary angioplasty status] Onset: 2 10-11-2011 Episodic Malaise and fatigue (8 sources) Fatigue; Translations: [Other fatigue] Onset: 2 10-11-2013 Episodic Other aftercare (6 sources) Long-term (current) use of other medications; Translations: [Other manager long term care (current) drug therapy] Onset: 2 09-30-2011 Episodic Other circulatory disease (14 sources) Electrocardiogram abnormal; Translations: [Cardiovascular stress test abnormal] Onset: 2 Resolved: 2 09-19-2011 Episodic Other connective tissue disease (6 sources) Pain in right foot; Translations: [Pain in right foot] Onset: 9 Episodic Other lower respiratory disease (4 sources) Dyspnea; Translations: [Shortness of breath] Onset: 2 08-14-2011 Episodic Other nutritional; endocrine; and metabolic disorders (14 sources) Body mass index (BMI) 28.0-28.9, adult; Translations: [Body mass index (BMI) 29.0-29.9, adult] Onset: 4 Resolved: 5 04-01-2014 Episodic Other nutritional; endocrine; and metabolic disorders (2 sources) Body mass index (BMI) 29.0-29.9, adult; Translations: [Body mass index (BMI) 29.0-29.9, adult] Onset: 5 Resolved: 5 04-21-2015 Episodic Other screening for suspected conditions (not mental disorders or infectious disease) (2 sources) Cardiovascular stress test abnormal; Translations: [Abnormal result of other cardiovascular function study] Onset: 2 Resolved: 2 09-19-2011 Episodic Other skin disorders (5 sources) Hyperkeratosis; Translations: [Epidermal thickening, unspecified] Onset: 0 Episodic Residual codes; unclassified (1 source) Family history of ischemic heart disease; Translations: [Family history of ischemic heart disease and other diseases of the circulatory system] Onset: 2 08-22-2011 Episodic Residual codes; unclassified (2 sources) Family history of ischemic heart disease and other diseases of the circulatory system; Translations: [Family history of ischemic heart disease and other diseases of the circulatory system] 10-11-2013 Episodic Residual codes; unclassified (1 source) FH: Hypertension; Translations: [Family history of ischemic heart disease and other diseases of the circulatory system] 06-28-2014 Episodic Unclassified (16 sources) Edema; Translations: [Family history of ischemic heart disease and other diseases of the circulatory system] Onset: 2 09-29-2014 Episodic Unclassified (6 sources) Preoperative cardiovascular examination ; Translations: [Encounter for preprocedural cardiovascular examination] Onset: 5 Resolved: 7 06-28-2014 Results Test Name Value Interpretation Reference Range Facil ity Vital Signs Date Time Vital Sign Value Performing Clinician Facility 04-27-2021 08:11-0500 Body temperature 98.2 [degF] Reynold Marco Jr., DPM Work Phone: [facility] 04-27-2021 08:11-0500 Diastolic blood pressure 55 mm[Hg] Reynold Marco Jr., DPM Work Phone: [facility] 04-27-2021 08:11-0500 Heart rate 61 /min Reynold Marco Jr., DPM Work Phone: [facility] 04-27-2021 08:11-0500 Systolic blood pressure 112 mm[Hg] Reynold Marco Jr., DPM Work Phone: [facility] 02-02-2021 08:31-0400 Body temperature 98.1 [degF] Reynold Marco Jr., DPM Work Phone: [facility] 02-02-2021 08:31-0400 Diastolic blood pressure 43 mm[Hg] Reynold Marco Jr., DPM Work Phone: [facility] 02-02-2021 08:31-0400 Heart rate 57 /min Reynold Marco Jr., DPM Work Phone: [facility] 02-02-2021 08:31-0400 Systolic blood pressure 110 mm[Hg] Reynold Marco Jr., DPM Work Phone: [facility] 01-05-2021 08:17-0400 Body temperature 96.8 [degF] Reynold Marco Jr., DPM Work Phone: [facility] 01-05-2021 08:17-0400 Diastolic blood pressure 42 mm[Hg] Reynold Marco Jr., DPM Work Phone: [facility] 01-05-2021 08:17-0400 Heart rate 59 /min Reynold Marco Jr., DPM Work Phone: [facility] 01-05-2021 08:17-0400 Systolic blood pressure 110 mm[Hg] Reynold Marco Jr., DPM Work Phone: [facility] 12-08-2020 10:48-0400 Body height 149.9 cm Reynold Marco Jr., DPM Work Phone: [facility] 12-08-2020 10:48-0400 Body mass index (BMI) [Ratio] 31.71 kg/m2 Reynold Marco Jr., DPM Work Phone: [facility] 12-08-2020 10:48-0400 Body temperature 97.9 [degF] Reynold Marco Jr., DPM Work Phone: [facility] 12-08-2020 10:48-0400 Body weight 71.22 kg Reynold Marco Jr., DPM Work Phone: [facility] 12-08-2020 10:48-0400 Diastolic blood pressure 51 mm[Hg] Reynold Marco Jr., DPM Work Phone: [facility] 12-08-2020 10:48-0400 Heart rate 55 /min Reynold Marco Jr., DPM Work Phone: [facility] 12-08-2020 10:48-0400 Systolic blood pressure 114 mm[Hg] Reynold Marco Jr., DPM Work Phone: [facility] 10-25-2020 08:33-0400 Body height 149.9 cm Reynold Marco Jr., DPM Work Phone: [facility] 10-25-2020 08:33-0400 Body mass index (BMI) [Ratio] 31.71 kg/m2 Reynold Marco Jr., DPM Work Phone: [facility] 10-25-2020 08:33-0400 Body weight 71.22 kg Reynold Marco Jr., DPM Work Phone: [facility] 12-05-2016 07:59-0400 BMI (Body Mass Index) 31.08 kg/m2 Harumi DeFinmaricel [facility] Work Phone: 12-05-2016 07:59-0400 BP Diastolic 60 mm[Hg] Harumi DeFinis [facility] Work Phone: 12-05-2016 07:59-0400 BP Systolic 138 mm[Hg] Harumi DeFinis [facility] Work Phone: 12-05-2016 07:59-0400 Height 154.94 cm Harumi DeFinis [facility] Work Phone: 12-05-2016 07:59-0400 Pulse (Heart Rate) 58 /min Harumi DeFinis [facility] Work Phone: 12-05-2016 07:59-0400 Respiratory Rate 20 /min Harumi DeFinis [facility] Work Phone: 12-05-2016 07:59-0400 Weight 74.62 kg Harumi DeFinis [facility] Work Phone: 06-17-2016 11:51-0500 Heart rate 58 /min Harumi DeFinis [facility] Work Phone: 06-17-2016 11:24-0500 BMI (Body Mass Index) 31.02 kg/m2 Mushtaq Edwadrs MD [facility] Work Phone: 06-17-2016 11:24-0500 BP Diastolic 70 mm[Hg] Mushtaq Edwards MD [facility] Work Phone: 06-17-2016 11:24-0500 BP Systolic 134 mm[Hg] Mushtaq Edwards MD [facility] Work Phone: 06-17-2016 11:24-0500 BSA (Body Surface Area) 1.74 m2 Mushtaq Edwards MD [facility] Work Phone: 06-17-2016 11:24-0500 Pulse (Heart Rate) 60 /min [facility] Work Phone: 06-17-2016 11:24-0500 Respiratory Rate 16 /min Mushtaq Edwards MD [facility] Work Phone: 06-17-2016 11:24-0500 Weight 74.48 kg Mushtaq Edwards MD [facility] Work Phone: 10-11-2013 08:38-0400 Heart rate 416 ms Luis Armando Wolfgangmaricel [facility] Work Phone: 08-22-2011 16:48-0400 Height 154.94 cm Mushtaq [facility] Work Phone: Encounters Encounter Date Encounter Type Care Provider Facility Start: 04-27-2021 End: 04-27-2021 ambulatory REYNOLD DIEHL JR. [facility] Start: 04-27-2021 End: 04-27-2021 Office outpatient visit 15 minutes Reynold Diehl DPM Work Phone: [facility] Procedures Date Procedure Procedure Detail Performing Clinician Start: 11-08-2019 Colonoscopy Reynold Diehl Jr. DPK[facility] Work Phone: Start: 12-05-2016 End: 12-05-2016 Follow Up Appt 6 months Otis Parra NP Work Phone: Start: 12-05-2016 End: 12-05-2016 PFM Otis Parra NP Work Phone: Start: 10-28-2016 End: 12-02-2016 *Hepatic Function Panel Mushtaq Edwards MD Start: 10-28-2016 End: 12-02-2016 Lipid panel [AGGREGATE] Mushtaq Edwards MD Start: 06-17-2016 End: 06-17-2016 Dietary management education, guidance, and counseling Luis Armando Caldera Start: 06-17-2016 End: 06-27-2016 *BMP Mushtaq Edwards MD Start: 06-17-2016 End: 06-27-2016 aPTT Mushtaq Edwards MD Start: 06-17-2016 End: 06-27-2016 CBC W Auto Differential panel - Blood Mushtaq Edwards MD Start: 06-17-2016 End: 06-28-2016 Chest x-ray Mushtaq Edwards MD Start: 06-17-2016 End: 06-27-2016 Coagulation factor induced.INR assay in platelet poor plasma Mushtaq Edwards MD Start: 06-17-2016 End: 06-17-2016 Electrocardiogram, complete Mushtaq Edwards MD Start: 06-17-2016 End: 06-17-2016 Follow Up Appt 6 months Mushtaq Edwards MD Start: 06-17-2016 End: 06-17-2016 Follow Up Appt Other Mushtaq Edwards MD Start: 06-17-2016 End: 07-10-2016 Left Heart Cath Mushtaq Edwards MD Start: 06-17-2016 End: 06-17-2016 MMM Mushtaq Edwards MD Start: 04-17-2016 End: 04-29-2016 *Hepatic Function Panel Mushtaq Edwards MD Start: 04-17-2016 End: 04-29-2016 Lipid panel [AGGREGATE] Mushtaq Edwards MD Start: 10-31-2015 End: 10-31-2015 Electrocardiogram, complete Tara Irby PA-C Work Phone: Start: 10-31-2015 End: 10-31-2015 Follow Up Appt 6 months Tara Irby PA-C Work Phone: Start: 10-31-2015 End: 10-31-2015 PFM Tara Irby PA-C Work Phone: Start: 10-18-2015 End: 10-18-2015 *Hepatic Function Panel Mushtaq Edwards MD Start: 10-18-2015 End: 10-18-2015 Lipid panel [AGGREGATE] Mushtaq Edwards MD Start: 04-19-2015 End: 05-10-2015 *BMP Mushtaq Edwards MD Start: 04-19-2015 End: 04-21-2015 *Hepatic Function Panel Mushtaq Edwards MD Start: 04-19-2015 End: 04-19-2015 Follow Up Appt 6 months Mushtaq Edwards MD Start: 04-19-2015 End: 04-21-2015 Lipid panel [AGGREGATE] Mushtaq Edwards MD Start: 04-19-2015 End: 04-19-2015 MMM Mushtaq Edwards MD Start: 10-10-2014 End: 10-18-2014 *Hepatic Function Panel Mushtaq Edwards MD Start: 10-10-2014 End: 10-18-2014 Lipid panel [AGGREGATE] Mushtaq Edwards MD Start: 09-29-2014 End: 09-30-2014 Documentation of current medications Tara Irby PA-C Work Phone: Start: 09-29-2014 End: 09-29-2014 Follow Up Appt 6 months Tara Irby PA-C Work Phone: Start: 09-29-2014 End: 09-29-2014 PFM Tara Irby PA-C Work Phone: Start: 09-29-2014 End: 10-10-2014 Venous doppler Tara Irby PA-C Work Phone: Start: 06-28-2014 End: 06-29-2014 Documentation of current medications Tara Irby PA-C Work Phone: Start: 06-28-2014 End: 06-28-2014 Electrocardiogram, complete Tara Irby PA-C Work Phone: Start: 06-28-2014 End: 06-28-2014 Follow Up Appt Other Tara Irby PA-C Work Phone: Start: 06-28-2014 End: 06-29-2014 Nuclear stress test -Lexiscan Tara Irby PA-C Work Phone: Start: 06-28-2014 End: 06-14-2016 Preoperative cardiovascular examination PRE-OPERATIVE CARDIOVASCULAR EXAMINATION Luis Armando Caldera Start: 04-11-2014 End: 04-18-2014 *Hepatic Function Panel Philomena Yousif MA Start: 04-11-2014 End: 04-18-2014 Lipid panel [AGGREGATE] Philomena Yousif MA Start: 04-01-2014 End: 04-01-2014 Follow Up Appt 6 months Mushtaq Edwards MD Start: 04-01-2014 End: 04-25-2014 Follow Up BP Check Mushtaq Edwards MD Start: 04-01-2014 End: 04-01-2014 MMM Mushtaq Edwards MD Start: 10-12-2013 End: 10-12-2013 *Hepatic Function Panel Mushtaq Edwards MD Start: 10-12-2013 End: 10-12-2013 Lipid panel [AGGREGATE] Mushtaq Edwards MD Start: 10-11-2013 End: 10-12-2013 CBC W Auto Differential panel - Blood Tara Irby PA-C Work Phone: Start: 10-11-2013 End: 10-11-2013 Electrocardiogram, complete Tara Irby PA-C Work Phone: Start: 10-11-2013 End: 10-11-2013 Follow Up Appt 6 months Tara Irby PA-C Work Phone: Start: 10-11-2013 End: 10-11-2013 PFM Tara Irby PA-C Work Phone: Start: 05-12-2013 End: 05-17-2013 *Hepatic Function Panel Mushtaq Edwards MD Start: 05-12-2013 End: 05-17-2013 Lipid panel [AGGREGATE] Mushtaq Edwards MD Start: 2013 End: 2013 Follow Up Appt 6 months Mushtaq Edwards MD Start: 2013 End: 2013 MMM Mushtaq Edwards MD Start: 11-09-2012 End: 11-16-2012 *Hepatic Function Panel Mushtaq Edwards MD Start: 11-09-2012 End: 11-16-2012 Lipid panel [AGGREGATE] Mushtaq Edwards MD Start: 09-18-2012 End: 09-18-2012 Electrocardiogram, complete Tara Irby PA-C Work Phone: Start: 09-18-2012 End: 09-18-2012 Follow Up Appt 6 months Tara Irby PA-C Work Phone: Start: 09-18-2012 End: 10-11-2013 Nuclear stress test -exercise Tara Irby PA-C Work Phone: Start: 09-18-2012 End: 09-18-2012 PFM Tara Irby PA-C Work Phone: Start: 05-18-2012 End: 05-27-2012 *Hepatic Function Panel Mushtaq Edwards MD Start: 05-18-2012 End: 05-27-2012 Lipid panel [AGGREGATE] Mushtaq Edwards MD Start: 03-19-2012 End: 03-19-2012 Follow Up Appt 6 months Mushtaq Edwards MD Start: 12-02-2011 End: 09-18-2012 Follow Up Appt 4 months Mushtaq Edwards MD Start: 11-18-2011 End: 11-19-2011 *Hepatic Function Panel Philomena Yousif MA Start: 11-18-2011 End: 11-19-2011 Lipid panel [AGGREGATE] Mushtaq Edwards MD Start: 10-11-2011 End: 11-19-2011 Cardiovascular stress test using treadmill Mushtaq Edwards MD Start: 09-19-2011 End: 09-20-2011 *BMP Mushtaq Edwards MD Start: 09-19-2011 End: 09-20-2011 *CBC with Differential Mushtaq Edwards MD Start: 09-19-2011 End: 09-20-2011 *Hepatic Function Panel Mushtaq Edwards MD Start: 09-19-2011 End: 11-19-2011 aPTT Mushtaq Edwards MD Start: 09-19-2011 End: 09-20-2011 Chest x-ray Mushtaq Edwards MD Start: 09-19-2011 End: 11-19-2011 Coagulation factor induced.INR assay in platelet poor plasma Mushtaq Edwards MD Start: 09-19-2011 End: 09-20-2011 Electrocardiogram, complete Mushtaq Edwards MD Start: 09-19-2011 End: 11-19-2011 Follow Up Appt Other Mushtaq Edwards MD Start: 09-19-2011 End: 11-19-2011 Left & Right Heart Cath Mushtaq Edwards MD Start: 09-19-2011 End: 09-20-2011 Lipid panel [AGGREGATE] Mushtaq Edwards MD Start: 09-05-2011 End: 09-20-2011 *BMP Mushtaq Edwards MD Start: 09-05-2011 End: 09-19-2011 aPTT Mushtaq Edwards MD Start: 09-05-2011 End: 09-20-2011 CBC W Auto Differential panel - Blood Mushtaq Edwards MD Start: 09-05-2011 End: 09-20-2011 Chest x-ray Mushtaq Edwards MD Start: 09-05-2011 End: 09-19-2011 Coagulation factor induced.INR assay in platelet poor plasma Mushtaq Edwards MD Start: 09-05-2011 End: 11-19-2011 Left & Right Heart Cath Mushtaq Edwards MD Start: 08-22-2011 End: 09-20-2011 24 hour holter monitor Mushtaq Edwards MD Start: 08-22-2011 End: 09-20-2011 Echocardiography Mushtaq Edwards MD Start: 08-22-2011 End: 08-23-2011 Electrocardiogram, complete Mushtaq Edwards MD Start: 08-22-2011 End: 08-23-2011 Follow Up Appt 3 months Mushtaq Edwards MD Start: 08-22-2011 End: 09-20-2011 Nuclear stress test -exercise Mushtaq Edwards MD Plan of Treatment Date Care Activity Detail Author Start: 11-07-2029 Screening for malignant neoplasm of colon [facility] Start: 04-27-2021 End: 04-27-2021 Patient encounter procedure 04/27/2021 Office Visit Podiatry Reyonld Diehl Jr., DPKamron [address] [place] [address] [facility] Start: 02-02-2021 End: 02-02-2021 Patient encounter procedure 02/02/2021 Office Visit Podiatry Reynold Diehl Jr., DPKamron [address] [place] [address] [facility] Physician [facility] Start: 01-10-2021 COVID-19 Vaccine (3 - Booster for Moderna series) COVID-19 Vaccine (3 - Booster for Moderna series) [facility] Start: 01-10-2021 Influenza vaccination Sequential Influenza Vaccine (#1) [facility] Start: 01-05-2021 End: 01-05-2021 Patient encounter procedure 01/05/2021 Office Visit Podiatry Reynold Diehl Jr., DPM [address] [place] [address] [phone] [facility] Physician [facility] Start: 11-22-2020 End: 11-22-2020 Patient encounter procedure 11/22/2020 Office Visit Podiatry Reynold Diehl Jr., DPM [address] [place] [address] [phone] [facility] Physician [facility] Start: 06-18-2017 End: 06-18-2017 Appointment Appointment [facility] Work Phone: Start: 05-12-2017 End: 12-05-2016 *Hepatic Function Panel *Hepatic Function Panel [facility] Work Phone: Start: 05-12-2017 End: 12-05-2016 Lipid panel [AGGREGATE] *Lipid Profile CC PCP [facility] Work Phone: Start: 12-05-2016 End: 12-05-2016 Appointment Appointment [facility] Work Phone: Start: 12-05-2016 End: 12-05-2016 Follow Up Appt 6 months Follow Up Appt 6 months [facility] Work Phone: Start: 12-05-2016 End: 12-05-2016 PFM PFM [facility] Work Phone: Start: 10-28-2016 End: 12-02-2016 *Hepatic Function Panel *Hepatic Function Panel [facility] Work Phone: Start: 10-28-2016 End: 12-02-2016 Lipid panel [AGGREGATE] *Lipid Profile CC PCP [facility] Work Phone: Start: 06-17-2016 End: 06-27-2016 *BMP *BMP [facility] Work Phone: Start: 06-17-2016 End: 06-27-2016 aPTT *PTT-Partial Thromboplastin Time [facility] Work Phone: Start: 06-17-2016 End: 06-27-2016 aPTT Coag time (PPP) *PTT-Partial Thromboplastin Time [facility] Work Phone: Start: 06-17-2016 End: 06-27-2016 CBC W Auto Differential panel - Blood *CBC without Diff [facility] Work Phone: Start: 06-17-2016 End: 06-28-2016 Chest x-ray X-Ray, Chest, PA & Lateral [facility] Work Phone: Start: 06-17-2016 End: 06-27-2016 Coagulation factor induced.INR assay in platelet poor plasma *PT/INR [facility] Work Phone: Start: 06-17-2016 End: 06-17-2016 Echocardiography Echocardiogram (complete) [facility] Work Phone: Start: 06-17-2016 End: 06-17-2016 Electrocardiogram, complete EKG (In office) [facility] Work Phone: Start: 06-17-2016 End: 06-17-2016 Follow Up Appt 6 months Follow Up Appt 6 months [facility] Work Phone: Start: 06-17-2016 End: 06-17-2016 Follow Up Appt Other Follow Up Appt Other [facility] Work Phone: Start: 06-17-2016 End: 06-17-2016 Left Heart Cath Left Heart Cath [facility] Work Phone: Start: 06-17-2016 End: 06-17-2016 MMM MMM [facility] Work Phone: Start: 04-17-2016 End: 04-29-2016 *Hepatic Function Panel *Hepatic Function Panel [facility] Work Phone: Start: 04-17-2016 End: 04-29-2016 Lipid panel [AGGREGATE] *Lipid Profile CC PCP [facility] Work Phone: Start: 10-31-2015 End: 10-31-2015 Electrocardiogram, complete EKG (In office) [facility] Work Phone: Start: 10-31-2015 End: 10-31-2015 Follow Up Appt 6 months Follow Up Appt 6 months [facility] Work Phone: Start: 10-31-2015 End: 10-31-2015 PFM PFM [facility] Work Phone: Start: 10-23-2015 End: 10-18-2015 *Hepatic Function Panel *Hepatic Function Panel [facility] Work Phone: Start: 10-23-2015 End: 10-18-2015 Lipid panel [AGGREGATE] *Lipid Profile CC PCP [facility] Work Phone: Start: 04-19-2015 End: 05-10-2015 *BMP *BMP [facility] Work Phone: Start: 04-19-2015 End: 04-21-2015 *Hepatic Function Panel *Hepatic Function Panel [facility] Work Phone: Start: 04-19-2015 End: 04-19-2015 Follow Up Appt 6 months Follow Up Appt 6 months [facility] Work Phone: Start: 04-19-2015 End: 04-21-2015 Lipid panel [AGGREGATE] *Lipid Profile CC PCP [facility] Work Phone: Start: 04-19-2015 End: 04-19-2015 MMM MMM [facility] Work Phone: Start: 10-10-2014 End: 10-18-2014 *Hepatic Function Panel *Hepatic Function Panel [facility] Work Phone: Start: 10-10-2014 End: 10-18-2014 Lipid panel [AGGREGATE] *Lipid Profile CC PCP [facility] Work Phone: Start: 09-29-2014 End: 09-29-2014 Follow Up Appt 6 months Follow Up Appt 6 months [facility] Work Phone: Start: 09-29-2014 End: 09-29-2014 PFM PFM [facility] Work Phone: Start: 09-29-2014 End: 09-29-2014 Venous doppler Venous doppler [facility] Work Phone: Start: 06-28-2014 End: 06-28-2014 Electrocardiogram, complete EKG (In office) [facility] Work Phone: Start: 06-28-2014 End: 06-28-2014 Follow Up Appt Other Follow Up Appt Other [facility] Work Phone: Start: 06-28-2014 End: 06-28-2014 Nuclear stress test -Lexiscan Nuclear stress test -Lexiscan [facility] Work Phone: Start: 04-11-2014 End: 04-18-2014 *Hepatic Function Panel *Hepatic Function Panel [facility] Work Phone: Start: 04-11-2014 End: 04-18-2014 Lipid panel [AGGREGATE] *Lipid Profile CC PCP [facility] Work Phone: Start: 04-01-2014 End: 04-01-2014 Follow Up Appt 6 months Follow Up Appt 6 months [facility] Work Phone: Start: 04-01-2014 End: 04-25-2014 Follow Up BP Check Follow Up BP Check [facility] Work Phone: Start: 04-01-2014 End: 04-01-2014 MMM MMM [facility] Work Phone: Start: 11-09-2013 End: 10-12-2013 *Hepatic Function Panel *Hepatic Function Panel [facility] Work Phone: Start: 11-09-2013 End: 10-12-2013 Lipid panel [AGGREGATE] *Lipid Profile CC PCP [facility] Work Phone: Start: 10-11-2013 End: 10-12-2013 CBC W Auto Differential panel - Blood *CBC without Diff [facility] Work Phone: Start: 10-11-2013 End: 10-11-2013 Electrocardiogram, complete EKG (In office) [facility] Work Phone: Start: 10-11-2013 End: 10-11-2013 Follow Up Appt 6 months Follow Up Appt 6 months [facility] Work Phone: Start: 10-11-2013 End: 10-11-2013 PFM PFM [facility] Work Phone: Start: 05-12-2013 End: 05-17-2013 *Hepatic Function Panel *Hepatic Function Panel [facility] Work Phone: Start: 05-12-2013 End: 05-17-2013 Lipid panel [AGGREGATE] *Lipid Profile CC PCP [facility] Work Phone: Start: 2013 End: 2013 Follow Up Appt 6 months Follow Up Appt 6 months [facility] Work Phone: Start: 2013 End: 2013 MMM MMM [facility] Work Phone: Start: 11-09-2012 End: 11-16-2012 *Hepatic Function Panel *Hepatic Function Panel [facility] Work Phone: Start: 11-09-2012 End: 11-16-2012 Lipid panel [AGGREGATE] *Lipid Profile [facility] Work Phone: Start: 09-18-2012 End: 09-18-2012 Electrocardiogram, complete EKG (In office) [facility] Work Phone: Start: 09-18-2012 End: 09-18-2012 Follow Up Appt 6 months Follow Up Appt 6 months [facility] Work Phone: Start: 09-18-2012 End: 09-18-2012 Nuclear stress test -exercise Nuclear stress test -exercise [facility] Work Phone: Start: 09-18-2012 End: 09-18-2012 PFM PFM [facility] Work Phone: Start: 05-18-2012 End: 05-27-2012 *Hepatic Function Panel *Hepatic Function Panel [facility] Work Phone: Start: 05-18-2012 End: 05-27-2012 Lipid panel [AGGREGATE] *Lipid Profile [facility] Work Phone: Start: 2012 Fall risk assessment Falls Risk Assessment [facility] Start: 2012 Pneumococcal Vaccine: Age 65+ (1 of 1 - PPSV23) Pneumococcal Vaccine: Age 65+ (1 of 1 - PPSV23) [facility] Start: 03-19-2012 End: 03-19-2012 Follow Up Appt 6 months Follow Up Appt 6 months [facility] Work Phone: Start: 12-02-2011 End: 09-18-2012 Follow Up Appt 4 months Follow Up Appt 4 months [facility] Work Phone: Start: 11-18-2011 End: 09-30-2011 *Hepatic Function Panel *Hepatic Function Panel [facility] Work Phone: Start: 11-18-2011 End: 11-19-2011 Lipid panel [AGGREGATE] *Lipid Profile [facility] Work Phone: Start: 10-11-2011 End: 11-19-2011 Cardiovascular stress test using treadmill Treadmill stress test (no imaging) [facility] Work Phone: Start: 09-19-2011 End: 09-20-2011 *BMP *BMP [facility] Work Phone: Start: 09-19-2011 End: 09-20-2011 *CBC with Differential *CBC with Differential [facility] Work Phone: Start: 09-19-2011 End: 09-20-2011 *Hepatic Function Panel *Hepatic Function Panel [facility] Work Phone: Start: 09-19-2011 End: 11-19-2011 aPTT *PTT-Partial Thromboplastin Time [facility] Work Phone: Start: 09-19-2011 End: 11-19-2011 aPTT Coag time (PPP) *PTT-Partial Thromboplastin Time [facility] Work Phone: Start: 09-19-2011 End: 09-20-2011 Chest x-ray X-Ray, Chest, PA & Lateral [facility] Work Phone: Start: 09-19-2011 End: 11-19-2011 Coagulation factor induced.INR assay in platelet poor plasma *PT/INR - Standing Order [facility] Work Phone: Start: 09-19-2011 End: 09-20-2011 Electrocardiogram, complete EKG (In office) [facility] Work Phone: Start: 09-19-2011 End: 11-19-2011 Follow Up Appt Other Follow Up Appt Other [facility] Work Phone: Start: 09-19-2011 End: 09-19-2011 Left & Right Heart Cath Left & Right Heart Cath [facility] Work Phone: Start: 09-19-2011 End: 09-20-2011 Lipid panel [AGGREGATE] *Lipid Profile [facility] Work Phone: Start: 09-05-2011 End: 09-20-2011 *BMP *BMP [facility] Work Phone: Start: 09-05-2011 End: 09-19-2011 aPTT *PTT-Partial Thromboplastin Time [facility] Work Phone: Start: 09-05-2011 End: 09-19-2011 aPTT Coag time (PPP) *PTT-Partial Thromboplastin Time [facility] Work Phone: Start: 09-05-2011 End: 09-20-2011 CBC W Auto Differential panel - Blood *CBC without Diff [facility] Work Phone: Start: 09-05-2011 End: 09-20-2011 Chest x-ray X-Ray, Chest, PA & Lateral [facility] Work Phone: Start: 09-05-2011 End: 09-19-2011 Coagulation factor induced.INR assay in platelet poor plasma *PT/INR [facility] Work Phone: Start: 09-05-2011 End: 09-06-2011 Left & Right Heart Cath Left & Right Heart Cath [facility] Work Phone: Start: 08-22-2011 End: 08-23-2011 24 hour holter monitor 24 hour holter monitor [facility] Work Phone: Start: 08-22-2011 End: 08-23-2011 Echocardiography Echocardiogram (complete) [facility] Work Phone: Start: 08-22-2011 End: 08-23-2011 Electrocardiogram, complete EKG (In office) [facility] Work Phone: Start: 08-22-2011 End: 08-23-2011 Follow Up Appt 3 months Follow Up Appt 3 months [facility] Work Phone: Start: 08-22-2011 End: 08-23-2011 Nuclear stress test -exercise Nuclear stress test -exercise [facility] Work Phone: Start: 1997 Administration of herpes zoster vaccine Zoster Vaccines (1 of 2) [facility] Start: 1997 Screening for malignant neoplasm of colon [facility] Start: 1987 Screening for malignant neoplasm of breast Mammogram [facility] Start: 1987 Screening mammography Mammogram [facility] Start: 1965 Hepatitis C screening Hepatitis C Screening [facility] Start: 1959 COVID-19 Vaccine (1) COVID-19 Vaccine (1) [facility] Start: 1959 Depression screening using PHQ-9 (Patient Health Questionnaire 9) score [facility] Start: 1953 Pneumococcal Vaccine: Age 65+ (1 of 2 - PPSV23) Pneumococcal Vaccine: Age 65+ (1 of 2 - PPSV23) [facility] Start: 1950 History and physical examination, annual for health maintenance Wellness Visit [facility] Start: 1947 Screening for osteoporosis Dexa Scan [facility] Start: 1947 Tetanus vaccination Tetanus: Every 10yrs [facility] Patient Education [facility] Work Phone: Payers Date Payer Category Payer Unknown 2017 Unknown [id number] 2017 Unknown [id number] 2012 Medicare 2012 Medicare [id number] 2012 Medicare [id number] 1947 Unknown [id number] 1947 Unknown [id number] 1947 Unknown [id number] [id number] 1947 Unknown [id number] [id number]. [id number] 1947 Unknown [id number] Social History Date Type Detail Facility Start: 11-13-2020 End: 12-08-2020 Tobacco smoking status NHIS Never smoker [facility] Start: 11-13-2020 End: 04-27-2021 Alcohol intake Lifetime non-drinker (finding) [facility] Start: 1945 Sex Assigned At Not on file [facility] Exposure to SARS-CoV -2 (event) Not sure [facility] Start: 11-13-2020 Tobacco use and exposure Smokeless t obacco non-user [facility] History of Present illness Narrative 04-27-2021 Reynold Diehl Jr., DPM - 04/27/2021 8:27 AM EST Note Date & Type Note Facility 04-27-2021 History of Presen t illness Narrative Right foot ganglion and callus Patient is a pleasant 76-year-old female who follows up today for painful dorsal first MPJ ganglion cyst. States that the mass essentially has not returned since her last steroid injection and she has been pleasantly surprised. States that she is feeling tremendously improved Vascular: DP PT pulses are easily palpable 2 out of 4. CFT is fair no edema. Derm: Moderate hyperkeratosis subfifth MPJ. No interruption of skin lines no open wounds no fluctuance or crepitation no deep nodules. Neuro: Light touch is normal Babinski's is normal. Musculoskeletal: First MPJ range of motion is substantially improved and mass is absent. No pain with forced dorsiflexion of the EHL or EDL. Ankle midtarsal are full and pain-free. Assessment and plan: Patient is a pleasant female with resolution of a painful ganglion cyst and painful right foot fifth MPJ hyperkeratosis. In terms of ganglion, again no need for an MRI or repeat steroid injection given her now full resolution. -Regarding her painful callus, did prescribe topical ammonium lactate 12% twice daily for the next 90 days. -Follow-up as needed. Low medical complexity decision making based on multiple issues simultaneously being treated as well as the waxing waning character of her ganglion cyst. documented in this encounter [facility] History of Present illness Narrative 02-02-2021 Reynold Diehl Jr., DPM - 02/02/2021 8:55 AM EDT Note Date & Type Note Facility 02-02-2021 History of Presen t illness Narrative Right great toe mass Patient is a pleasant 75-year-old female who comes in today following up for painful dorsal right first MPJ soft tissue mass. She states that the last steroid shot was helpful and she did take some NSAIDs and thinks it has improved quite a bit. Still with some pain present but the bump has decreased. Physical Vascular: DP PT pulses are easily palpable 2-4. CFT is fair no edema. Derm: No open wounds no ulcers no rashes no erythema does have a deep palpable nodule. Musculoskeletal: Muscle strength is 5 out of 5 with fair tone. Can easily wiggle toes. Does of a painful mass with forced dorsiflexion of her right first MPJ with resistance though decreasing in size in the last month neuro: Light touch is normal Babinski's is normal Assessment and plan Patient is a pleasant 75-year-old female with painful right great toe dorsal ganglion cyst versus mass of uncertain etiology. -Patient did have some improvement after steroid injection and NSAID therapy -Today given the decrease in size we will hold off on a repeat steroid shot and an MRI. -Like to give her another 3 to 4 months to see if this continues to improve. -If not again consider repeat steroid injection versus MRI Straight forward medical complexity based on the waxing waning character of this subchronic modality documented in this encounter [facility] History of Present illness Narrative 01-05-2021 Reynold Diehl Jr., DPM - 01/05/2021 8:29 AM EDT Note Date & Type Note Facility 01-05-2021 History of Presen t illness Narrative Right great toe mass Patient is a pleasant 75-year-old female who comes in today following up for painful dorsal right first MPJ soft tissue mass. She states that the last steroid shot was helpful but she is not sure if it totally improved her. She states that her pain is improved but still present with bumping pressure and compression. Wants to know what to do next. Physical Vascular: DP PT pulses are easily palpable 2-4. CFT is fair no edema. Derm: No open wounds no ulcers no rashes no erythema does have a deep palpable nodule. Musculoskeletal: Muscle strength is 5 out of 5 with fair tone. Can easily wiggle toes. Does of a painful mass with forced dorsiflexion of her right first MPJ with resistance. The mass is nonadherent and does partially transilluminate. Neuro: Light touch is normal Babinski's is normal Assessment and plan Patient is a pleasant 75-year-old female with painful right great toe dorsal ganglion cyst versus mass of uncertain etiology. -Today did order an MRI though she declined. Likely will need surgical mapping for excision though again she states that she would decline. As a compromise today can take NSAIDs for this subchronic problem. -Follow-up in 1 month to reconsider repeat steroid shot of dexamethasone. Low medical complexity based on the waxing waning character of this subchronic modality documented in this encounter [facility] History of Present illness Narrative 12-08-2020 Reynold Diehl Jr., DPM - 12/08/2020 10:32 AM EDT Note Date & Type Note Facility 12-08-2020 History of Presen t illness Narrative Patient is a pleasant 75-year-old female who comes in today following up for right great toe pain. She states that last month, in October, her dorsal right foot injection was quite helpful at approximately 50%. She believes her ganglion cyst is 50% as big as it was not 50% as painful as it was last month. Wondering if she needs another shot today to help get her the rest of the way improved. States that it still feels full tight and uncomfortable. Physical Vascular: DP PT pulses are easily palpable 2-4. CFT is fair no edema. Derm: No open wounds no ulcers no rashes no deep nodules. Neuro: Light touch is normal Babinski's is normal. Musculoskeletal: Still with pain in a dorsal soft tissue mass of the right foot subcutaneously at the first MPJ medial to the extensor hallucis longus tendon. MPJ itself is full and pain-free without any clicking or catching. 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 -Today does require repeat dexamethasone injection to continue to reduce the volume and size. If this fails we will convert to an MRI and consider surgical intervention. Primary risks include rupture pain tingling burning scarring and infection. Despite this risk she does wish to proceed. No guarantees were implied or made. Procedure: After timeout consent was performed, and alcohol prep, did inject to the ganglion cyst in classical fashion combination of 1 cc of dexamethasone 4 mg/mL and 1 cc of Marcaine 0.5%. Postop bandage applied. Follow-up in 1 month review documented in this encounter [facility] Evaluation note Note Date & Type Note Facility documented in this encounter [facility] Evaluation note Note Date & Type Note Facility documented in this encounter [facility] Evaluation note Note Date & Type Note Facility documented in this encounter [facility] Evaluation note Note Date & Type Note Facility documented in this encounter [facility] Evaluation note Note Date & Type Note Facility documented in this encounter [facility] Summary Purpose Family History No Family History Records FoundNo Family History Records Found Advance Directives No Advanced Directives Records FoundDocuments on File Type Date 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 States it feels about the same. May have went down a little in size. Calluses Base of 5th right mp j. Reason Comments Follow-up Right foot ganglion cyst. Said it is about the same. Reason Comments Follow-up Follow up ganglion. Calluses Right 5th mpj callus needs trimmed. Care Teams (unrecognized sec tion and content) Senior Producer Relationship Specialty Start Date End Date Mushtaq Rose MD [address] [place] [address] [place] [id number] PCP - General Family Medicine 12/08/20 FOR RECORDS PERTAINING TO PATIENTS WHO ARE OR HAVE BEEN ENROLLED IN A CHEMICAL DEPENDENCY/SUBSTANCEABUSE PROGRAM, SOME INFORMATION MAY BE OMITTED. This clinical summary was aggregated from multiple sources. Caution should be exercised in using it in the provision of clinical care. This summary normalizes information from multiple sources, and as a consequence, information in this document may materially change the coding, format and clinical context of patient data. In addition, data may be omitted in some cases. CLINICAL DECISIONS SHOULD BE BASED ON THE PRIMARY CLINICAL RECORDS. [facility]. provides no warranty or guarantee of the accuracy or completeness of information in this document.
[2023-06-23 11:38] LABS: AST(SGOT) 15 U/L (15-37); Alanine Aminotransfer ALT/SGPT 25 U/L (13-56); Albumin, Serum 3.5 g/dL (3.2-5.0); Alkaline Phosphatase 67 U/L (45-117); Bilirubin, Direct 0.12 mg/dL (0.00-0.30); Cholesterol 128 mg/dL (200); Globulin 3.2 g/dL (2.2-4.2); High Density Lipoprotein 65 mg/dL; Protein, Total 6.7 g/dL (6.4-8.2); Triglycerides 77 mg/dL; Very Low Density Lipoprotein 15 mg/dL (5-40)
== END | disposition home or self-care (01) ==
PROVIDERS: PCP Family Medicine; Referring Provider Internal Medicine Cardiovascular Disease; Visit Provider Internal Medicine Cardiovascular Disease
DX: E78.00 Pure hypercholesterolemia, unspecified (principal)
CPT/HCPCS: 36415; 80061; 80076

== ENCOUNTER → 2023-06-24 | Outpatient (CLI) | payer MEDICARE, BC, SELFPAY ==
[2023-06-24 14:28] LABS: Absolute Lymphocyte Count 1.78 X10^3/uL (0.83-4.51); Absolute Neutrophil Count 5.4 X10^3/uL (2.0-7.7); Basophil# 0.03 X10^3/uL; Basophil% 0.4 % (0-1); Eosinophil# 0.17 X10^3/uL; Eosinophils% 2.1 % (0-5); Hematocrit 38.5 % (37-47); Hemoglobin 12.5 g/dL (12.0-15.0); Lymphocyte # 1.78 X10^3/ul (0.83-4.51); Lymphocyte % 22.1 % (19-41); Mean Corp Hgb Conc 32.5 g/dL (32-36); Mean Corpuscular Hgb 30.9 pg (27.0-32.0); Mean Corpuscular Volume 95.3 fL (81-99); Monocyte# 0.61 X10^3/uL; Monocyte% 7.6 % (0-10); NRBC Flagged by Analyzer 0 % (0-5); Neutrophil # 5.43 X10^3/uL (2.7-7.7); Neutrophil % 67.4 % (47-70); Platelet Count 253 K/mm3 (150-450); RBC Distribution Width CV 13.4 % (11.6-14.6); RBC Distribution Width SD 46.6 fl (35.1-43.9); Red Blood Count 4.04 M/mm3 (4.2-5.4); White Blood Count 8.1 K/mm3 (4.4-11.0)
[2023-06-24 14:54] LABS: ALB/GLOB Ratio 1.1 RATIO (0.9-2.4); AST(SGOT) 12 U/L (15-37); Alanine Aminotransfer ALT/SGPT 24 U/L (13-56); Albumin, Serum 3.5 g/dL (3.2-5.0); Alkaline Phosphatase 69 U/L (45-117); Anion Gap 5 (5-15); BUN 17 mg/dL (7-18); CPK Total, Creatine Kinase 44 U/L (26-192); Calcium,Total 10.4 mg/dL (8.5-10.1); Chloride 107 mmol/L (98-107); Creatinine, Serum 0.65 mg/dL (0.55-1.02); EST Glomerular Filtration Rate 94 mL/min (>60); Est Glom Filt Rate - Afr Amer 113 mL/min (>60); Globulin 3.1 g/dL (2.2-4.2); Glucose 93 mg/dL (74-106); Potassium 3.8 mmol/L (3.5-5.1); Protein, Total 6.6 g/dL (6.4-8.2); Sodium Level 142 mmol/L (136-145); Thyroid Stim Hormone (TSH) 0.65 uIU/mL (0.358-3.74)
[2023-06-24 14:55] LABS: AST(SGOT) 16 U/L (15-37); Alanine Aminotransfer ALT/SGPT 21 U/L (13-56); Albumin, Serum 3.4 g/dL (3.2-5.0); Alkaline Phosphatase 69 U/L (45-117); Bilirubin, Direct 0.11 mg/dL (0.00-0.30); Cholesterol 133 mg/dL (200); Globulin 3.2 g/dL (2.2-4.2); High Density Lipoprotein 66 mg/dL; Protein, Total 6.6 g/dL (6.4-8.2); Triglycerides 80 mg/dL; Very Low Density Lipoprotein 16 mg/dL (5-40)
--- OUTSIDE RECORDS SUMMARY | 2023-06-24 18:53 | XMS RPT_ITS | CCD ---
Author Name Unknown Address [address] [place] [address] Organization [facility] Care Team Providers Care Ring Attacher Name Role Phone Luis Armando Caldera Unavailable Unavailable Luis Armando Caldera Unavailable Unavailable Mushtaq Edwards MD Unavailable Benny Gao Admitting Unavailable Benny Gao Attending [...] Facility (3 sources) NKDA drug allergy 08-14-2011 [facility] Work Phone: (3 sources) NKA drug allergy 08-14-2011 [facility] Work Phone: Medications Current Medications Medication Drug [...] One tablet by mouth weekly ALENDRONATE SODIUM [id number] Alivia Dey RN Problems Active Problems Problem [...] (current) use of other medications; Translations: [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] Onset: 2 09-30-2011 Episodic [...] [degF] Reynold Marco Jr., DPM Work Phone: [facility] 04-27-2021 08:11-0500 Diastolic blood pressure 55 mm[Hg] Reynold Marco Jr., DPM Work Phone: [facility] 04-27-2021 08:11-0500 Heart rate 61 /min Reynold Marco Jr., DPM Work Phone: [facility] 04-27-2021 08:11-0500 Systolic blood pressure 112 mm[Hg] Reynold Marco Jr., DPM Work Phone: [facility] 02-02-2021 08:31-0400 Body temperature 98.1 [degF] Reynold Marco Jr., DPM Work Phone: [facility] 02-02-2021 08:31-0400 Diastolic blood pressure 43 mm[Hg] Reynold Marco Jr., DPM Work Phone: [facility] 02-02-2021 08:31-0400 Heart rate 57 /min Reynold Marco Jr., DPM Work Phone: [facility] 02-02-2021 08:31-0400 Systolic blood pressure 110 mm[Hg] Reynold Marco Jr., DPM Work Phone: [facility] 01-05-2021 08:17-0400 Body temperature 96.8 [degF] Reynold Marco Jr., DPM Work Phone: [facility] 01-05-2021 08:17-0400 Diastolic blood pressure 42 mm[Hg] Reynold Marco Jr., DPM Work Phone: [facility] 01-05-2021 08:17-0400 Heart rate 59 /min Reynold Marco Jr., DPM Work Phone: [facility] 01-05-2021 08:17-0400 Systolic blood pressure 110 mm[Hg] Reynold Marco Jr., DPM Work Phone: [facility] 12-08-2020 10:48-0400 Body height 149.9 cm Reynold Marco Jr., DPM Work Phone: [facility] 12-08-2020 10:48-0400 Body mass index (BMI) [Ratio] 31.71 kg/m2 Reynold Marco Jr., DPM Work Phone: [facility] 12-08-2020 10:48-0400 Body temperature 97.9 [degF] Reynold Marco Jr., DPM Work Phone: [facility] 12-08-2020 10:48-0400 Body weight 71.22 kg Reynold Marco Jr., DPM Work Phone: [facility] 12-08-2020 10:48-0400 Diastolic blood pressure 51 mm[Hg] Reynold Marco Jr., DPM Work Phone: [facility] 12-08-2020 10:48-0400 Heart rate 55 /min Reynold Marco Jr., DPM Work Phone: [facility] 12-08-2020 10:48-0400 Systolic blood pressure 114 mm[Hg] Reynold Marco Jr., DPM Work Phone: [facility] 10-25-2020 08:33-0400 Body height 149.9 cm Reynold Marco Jr., DPM Work Phone: [facility] 10-25-2020 08:33-0400 Body mass index (BMI) [Ratio] 31.71 kg/m2 Reynold Marco Jr., DPM Work Phone: [facility] 10-25-2020 08:33-0400 Body weight 71.22 kg Reynold Marco Jr., DPM Work Phone: [facility] 12-05-2016 07:59-0400 BMI (Body Mass Index) 31.08 kg/m2 Harumi DeFinmaricel [facility] Work Phone: 12-05-2016 07:59-0400 BP Diastolic 60 mm[Hg] Harumi DeFinis [facility] Work Phone: 12-05-2016 07:59-0400 BP Systolic 138 mm[Hg] Harumi DeFinis [facility] Work Phone: 12-05-2016 07:59-0400 Height 154.94 cm Harumi DeFinis [facility] Work Phone: 12-05-2016 07:59-0400 Pulse (Heart Rate) 58 /min Harumi DeFinis [facility] Work Phone: 12-05-2016 07:59-0400 Respiratory Rate 20 /min Harumi DeFinis [facility] Work Phone: 12-05-2016 07:59-0400 Weight 74.62 kg Harumi DeFinis [facility] Work Phone: 06-17-2016 11:51-0500 Heart rate 58 /min Harumi DeFinis [facility] Work Phone: 06-17-2016 11:24-0500 BMI (Body Mass Index) 31.02 kg/m2 Mushtaq Edwards MD [facility] Work Phone: 06-17-2016 11:24-0500 BP Diastolic 70 mm[Hg] Mushtaq Edwards MD [facility] Work Phone: 06-17-2016 11:24-0500 BP Systolic 134 mm[Hg] Mushtaq Edwards MD [facility] Work Phone: 06-17-2016 11:24-0500 BSA (Body Surface Area) 1.74 m2 Mushtaq Edwards MD [facility] Work Phone: 06-17-2016 11:24-0500 Pulse (Heart Rate) 60 /min [facility] Work Phone: 06-17-2016 11:24-0500 Respiratory Rate 16 /min Mushtaq Edwards MD [facility] Work Phone: 06-17-2016 11:24-0500 Weight 74.48 kg Mushtaq Edwards MD [facility] Work Phone: 10-11-2013 08:38-0400 Heart rate 416 ms Luis Armando Wolfgangmaricel [facility] Work Phone: 08-22-2011 16:48-0400 Height 154.94 cm Mushtaq [facility] Work Phone: Encounters Encounter Date Encounter Type Care Provider Facility Start: 04-27-2021 End: 04-27-2021 ambulatory REYNOLD DIEHL JR. [facility] Start: 04-27-2021 End: 04-27-2021 Office outpatient visit 15 minutes Reynold Diehl DPM Work Phone: [facility] Procedures Date Procedure Procedure [...] 11-07-2029 Screening for malignant neoplasm of colon [facility] Start: 04-27-2021 End: 04-27-2021 Patient encounter procedure 04/27/2021 Office Visit Podiatry Reynold Diehl Jr., DPKam[address] [place] [address] [facility] Start: 02-02-2021 End: 02-02-2021 Patient encounter procedure 02/02/2021 Office Visit Podiatry Reynold Diehl Jr., DPK[address] [place] [address] [facility] Physician [facility] Start: 01-10-2021 COVID-19 Vaccine (3 - Booster for Moderna series) COVID-19 Vaccine (3 - Booster for Moderna series) [facility] Start: 01-10-2021 Influenza vaccination Sequential Influenza Vaccine (#1) [facility] Start: 01-05-2021 End: 01-05-2021 Patient encounter procedure 01/05/2021 Office Visit Podiatry Reynold Diehl Jr., DPM [address] [place] [address] [phone] [facility] Physician [facility] Start: 11-22-2020 End: 11-22-2020 Patient encounter procedure 11/22/2020 Office Visit Podiatry Reynold Diehl Jr., DPM [address] [place] [address] [phone] [facility] Physician [facility] Start: 06-18-2017 End: 06-18-2017 Appointment Appointment [facility] Work Phone: Start: 05-12-2017 End: 12-05-2016 *Hepatic Function Panel *Hepatic Function Panel [facility] Work Phone: Start: 05-12-2017 End: 12-05-2016 Lipid panel [AGGREGATE] *Lipid Profile CC PCP [facility] Work Phone: Start: 12-05-2016 End: 12-05-2016 Appointment Appointment [facility] Work Phone: Start: 12-05-2016 End: 12-05-2016 Follow Up Appt 6 months Follow Up Appt 6 months [facility] Work Phone: Start: 12-05-2016 End: 12-05-2016 PFM PFM [facility] Work Phone: Start: 10-28-2016 End: 12-02-2016 *Hepatic Function Panel *Hepatic Function Panel [facility] Work Phone: Start: 10-28-2016 End: 12-02-2016 Lipid panel [AGGREGATE] *Lipid Profile CC PCP [facility] Work Phone: Start: 06-17-2016 End: 06-27-2016 *BMP *BMP [facility] Work Phone: Start: 06-17-2016 End: 06-27-2016 aPTT *PTT-Partial Thromboplastin Time [facility] Work Phone: Start: 06-17-2016 End: 06-27-2016 aPTT Coag time (PPP) *PTT-Partial Thromboplastin Time [facility] Work Phone: Start: 06-17-2016 End: 06-27-2016 CBC W Auto Differential panel - Blood *CBC without Diff [facility] Work Phone: Start: 06-17-2016 End: 06-28-2016 Chest x-ray X-Ray, Chest, PA & Lateral [facility] Work Phone: Start: 06-17-2016 End: 06-27-2016 Coagulation factor induced.INR assay in platelet poor plasma *PT/INR [facility] Work Phone: Start: 06-17-2016 End: 06-17-2016 Echocardiography Echocardiogram (complete) [facility] Work Phone: Start: 06-17-2016 End: 06-17-2016 Electrocardiogram, complete EKG (In office) [facility] Work Phone: Start: 06-17-2016 End: 06-17-2016 Follow Up Appt 6 months Follow Up Appt 6 months [facility] Work Phone: Start: 06-17-2016 End: 06-17-2016 Follow Up Appt Other Follow Up Appt Other [facility] Work Phone: Start: 06-17-2016 End: 06-17-2016 Left Heart Cath Left Heart Cath [facility] Work Phone: Start: 06-17-2016 End: 06-17-2016 MMM MMM [facility] Work Phone: Start: 04-17-2016 End: 04-29-2016 *Hepatic Function Panel *Hepatic Function Panel [facility] Work Phone: Start: 04-17-2016 End: 04-29-2016 Lipid panel [AGGREGATE] *Lipid Profile CC PCP [facility] Work Phone: Start: 10-31-2015 End: 10-31-2015 Electrocardiogram, complete EKG (In office) [facility] Work Phone: Start: 10-31-2015 End: 10-31-2015 Follow Up Appt 6 months Follow Up Appt 6 months [facility] Work Phone: Start: 10-31-2015 End: 10-31-2015 PFM PFM [facility] Work Phone: Start: 10-23-2015 End: 10-18-2015 *Hepatic Function Panel *Hepatic Function Panel [facility] Work Phone: Start: 10-23-2015 End: 10-18-2015 Lipid panel [AGGREGATE] *Lipid Profile CC PCP [facility] Work Phone: Start: 04-19-2015 End: 05-10-2015 *BMP *BMP [facility] Work Phone: Start: 04-19-2015 End: 04-21-2015 *Hepatic Function Panel *Hepatic Function Panel [facility] Work Phone: Start: 04-19-2015 End: 04-19-2015 Follow Up Appt 6 months Follow Up Appt 6 months [facility] Work Phone: Start: 04-19-2015 End: 04-21-2015 Lipid panel [AGGREGATE] *Lipid Profile CC PCP [facility] Work Phone: Start: 04-19-2015 End: 04-19-2015 MMM MMM [facility] Work Phone: Start: 10-10-2014 End: 10-18-2014 *Hepatic Function Panel *Hepatic Function Panel [facility] Work Phone: Start: 10-10-2014 [...] End: 06-28-2014 Electrocardiogram, complete EKG (In office) [facility] Work Phone: Start: 06-28-2014 End: 06-28-2014 Follow Up Appt Other Follow Up Appt Other [facility] Work Phone: Start: 06-28-2014 End: 06-28-2014 Nuclear stress test -Lexiscan Nuclear stress test -Lexiscan [facility] Work Phone: Start: 04-11-2014 End: [...] Up BP Check Follow Up BP Check [facility] Work Phone: Start: 04-01-2014 End: 04-01-2014 MMM MMM [facility] Work Phone: Start: 11-09-2013 End: 10-12-2013 *Hepatic Function Panel *Hepatic Function Panel [facility] Work Phone: Start: 11-09-2013 End: 10-12-2013 Lipid panel [AGGREGATE] *Lipid Profile CC PCP [facility] Work Phone: Start: 10-11-2013 End: 10-12-2013 CBC W Auto Differential panel - Blood *CBC without Diff [facility] Work Phone: Start: 10-11-2013 End: 10-11-2013 Electrocardiogram, complete EKG (In office) [facility] Work Phone: Start: 10-11-2013 End: 10-11-2013 Follow Up Appt 6 months Follow Up Appt 6 months [facility] Work Phone: Start: 10-11-2013 End: 10-11-2013 PFM PFM [facility] Work Phone: Start: 05-12-2013 End: 05-17-2013 *Hepatic Function Panel *Hepatic Function Panel [facility] Work Phone: Start: 05-12-2013 End: 05-17-2013 Lipid panel [AGGREGATE] *Lipid Profile CC PCP [facility] Work Phone: Start: 2013 End: 2013 Follow Up Appt 6 months Follow Up Appt 6 months [facility] Work Phone: Start: 2013 End: 2013 MMM MMM [facility] Work Phone: Start: 11-09-2012 End: 11-16-2012 *Hepatic Function Panel *Hepatic Function Panel [facility] Work Phone: Start: 11-09-2012 End: 11-16-2012 Lipid panel [AGGREGATE] *Lipid Profile [facility] Work Phone: Start: 09-18-2012 End: 09-18-2012 Electrocardiogram, complete EKG (In office) [facility] Work Phone: Start: 09-18-2012 End: 09-18-2012 Follow Up Appt 6 months Follow Up Appt 6 months [facility] Work Phone: Start: 09-18-2012 End: 09-18-2012 Nuclear stress test -exercise Nuclear stress test -exercise [facility] Work Phone: Start: 09-18-2012 End: 09-18-2012 PFM PFM [facility] Work Phone: Start: 05-18-2012 End: 05-27-2012 *Hepatic Function Panel *Hepatic Function Panel [facility] Work Phone: Start: 05-18-2012 End: 05-27-2012 Lipid panel [AGGREGATE] *Lipid Profile [facility] Work Phone: Start: 2012 Fall risk assessment Falls Risk Assessment [facility] Start: 2012 Pneumococcal Vaccine: Age 65+ (1 of 1 - PPSV23) Pneumococcal Vaccine: Age 65+ (1 of 1 - PPSV23) [facility] Start: 03-19-2012 End: 03-19-2012 Follow Up Appt 6 months Follow Up Appt 6 months [facility] Work Phone: Start: 12-02-2011 End: 09-18-2012 Follow Up Appt 4 months Follow Up Appt 4 months [facility] Work Phone: Start: 11-18-2011 End: 09-30-2011 *Hepatic Function Panel *Hepatic Function Panel [facility] Work Phone: Start: 11-18-2011 End: 11-19-2011 Lipid panel [AGGREGATE] *Lipid Profile [facility] Work Phone: Start: 10-11-2011 End: 11-19-2011 Cardiovascular stress test using treadmill Treadmill stress test (no imaging) [facility] Work Phone: Start: 09-19-2011 End: 09-20-2011 *BMP *BMP [facility] Work Phone: Start: 09-19-2011 End: 09-20-2011 *CBC with Differential *CBC with Differential [facility] Work Phone: Start: 09-19-2011 End: 09-20-2011 *Hepatic Function Panel *Hepatic Function Panel [facility] Work Phone: Start: 09-19-2011 End: 11-19-2011 aPTT *PTT-Partial Thromboplastin Time [facility] Work Phone: Start: 09-19-2011 End: 11-19-2011 aPTT Coag time (PPP) *PTT-Partial Thromboplastin Time [facility] Work Phone: Start: 09-19-2011 End: 09-20-2011 Chest x-ray X-Ray, Chest, PA & Lateral [facility] Work Phone: Start: 09-19-2011 End: [...] Heart Cath Left & Right Heart Cath [facility] Work Phone: Start: 09-19-2011 End: 09-20-2011 Lipid panel [AGGREGATE] *Lipid Profile [facility] Work Phone: Start: 09-05-2011 End: 09-20-2011 *BMP *BMP [facility] Work Phone: Start: 09-05-2011 End: 09-19-2011 aPTT *PTT-Partial Thromboplastin Time [facility] Work Phone: Start: 09-05-2011 End: 09-19-2011 aPTT Coag time (PPP) *PTT-Partial Thromboplastin Time [facility] Work Phone: Start: 09-05-2011 End: 09-20-2011 CBC W Auto Differential panel - Blood *CBC without Diff [facility] Work Phone: Start: 09-05-2011 End: 09-20-2011 Chest x-ray X-Ray, Chest, PA & Lateral [facility] Work Phone: Start: 09-05-2011 End: 09-19-2011 Coagulation factor induced.INR assay in platelet poor plasma *PT/INR [facility] Work Phone: Start: 09-05-2011 End: 09-06-2011 Left & Right Heart Cath Left & Right Heart Cath [facility] Work Phone: Start: 08-22-2011 End: 08-23-2011 24 hour holter monitor 24 hour holter monitor [facility] Work Phone: Start: 08-22-2011 End: 08-23-2011 Echocardiography Echocardiogram (complete) [facility] Work Phone: Start: 08-22-2011 End: 08-23-2011 Electrocardiogram, complete EKG (In office) [facility] Work Phone: Start: 08-22-2011 End: 08-23-2011 Follow Up Appt 3 months Follow Up Appt 3 months [facility] Work Phone: Start: 08-22-2011 End: 08-23-2011 Nuclear stress test -exercise Nuclear stress test -exercise [facility] Work Phone: Start: 1997 Administration of herpes zoster vaccine Zoster Vaccines (1 of 2) [facility] Start: 1997 Screening for malignant neoplasm of colon [facility] Start: 1987 Screening for malignant neoplasm of breast Mammogram [facility] Start: 1987 Screening mammography Mammogram [facility] Start: 1965 Hepatitis C screening Hepatitis C Screening [facility] Start: 1959 COVID-19 Vaccine (1) COVID-19 Vaccine (1) [facility] Start: 1959 Depression screening using PHQ-9 (Patient Health Questionnaire 9) score [facility] Start: 1953 Pneumococcal Vaccine: Age 65+ (1 of 2 - PPSV23) Pneumococcal Vaccine: Age 65+ (1 of 2 - PPSV23) [facility] Start: 1950 History and physical examination, annual for health maintenance Wellness Visit [facility] Start: 1947 Screening for osteoporosis Dexa Scan [facility] Start: 1947 Tetanus vaccination Tetanus: Every 10yrs [facility] Patient Education [facility] Work Phone: Payers Date Payer Category Payer Unknown 2017 Unknown [id number] 2017 Unknown [id number] 2012 Medicare 2012 Medicare [id number] 2012 Medicare [id number] 1947 Unknown [id number] 1947 Unknown [id number] [id number]. [id number] 1947 Unknown [id number] [id number]. [id number] 1947 Unknown [id number] [id number]. [id number] 1947 Unknown [id number] [id number]. [id number] Social History Date Type Detail Facility Start: 11-13-2020 End: 12-08-2020 Tobacco smoking status NHIS Never smoker [facility] Start: 11-13-2020 End: 04-27-2021 Alcohol intake Lifetime non-drinker (finding) [facility] Start: 1945 Sex Assigned At Not on file [facility] Exposure to SARS-CoV -2 (event) Not sure [facility] Start: 11-13-2020 Tobacco use and exposure Smokeless t obacco non-user [facility] History of Present illness Narrative 04-27-2021 Reynold [...] her ganglion cyst. documented in this encounter [facility] History of Present illness Narrative 02-02-2021 Reynold [...] this subchronic modality documented in this encounter [facility] History of Present illness Narrative 01-05-2021 Reynold [...] this subchronic modality documented in this encounter [facility] History of Present illness Narrative 12-08-2020 Reynold [...] 1 month review documented in this encounter [facility] Evaluation note Note Date & Type Note Facility documented in this encounter [facility] Evaluation note Note Date & Type Note Facility documented in this encounter [facility] Evaluation note Note Date & Type Note Facility documented in this encounter [facility] Evaluation note Note Date & Type Note Facility documented in this encounter [facility] Evaluation note Note Date & Type Note Facility documented in this encounter [facility] Summary Purpose Family History No Family History Records FoundNo Family History Records Found Advance Directives No Advanced Directives Records FoundDocuments on File Type Date Recorded Patient Poll Clerk Expl anation Advance Directives and Livin g Will 10/25/2020 12:00 AM Documents on File Type Date Recorded Patient Poll Clerk Expl anation Advance Directives and Living Will Additional Source Comments INFORMATION SOURCE (unrecogn ized section and content) DATE CREATED AUTHOR AUTHOR'S ORGANIZ ATION 04/28/2021 [facility] Reason for Visit (unrecogniz ed section and [...] Care Teams (unrecognized sec tion and content) Ring Attacher Relationship Specialty Start Date End Date Mushtaq Rose MD [address] [place] [address] [place] [id number] PCP - General Family Medicine 12/08/20 FOR [...] BE BASED ON THE PRIMARY CLINICAL RECORDS. [facility] provides no warranty or guarantee of the accuracy or completeness of information in this document.
== END | disposition home or self-care (01) ==
LOC: LAB 13:58
PROVIDERS: Nurse Practitioner Family; PCP Family Medicine; Referring Provider Internal Medicine Cardiovascular Disease; Visit Provider Internal Medicine Cardiovascular Disease
DX: I25.10 Atherosclerotic heart disease of native coronary artery without angina pectoris (principal); R53.83 Other fatigue; I10 Essential (primary) hypertension; E78.00 Pure hypercholesterolemia, unspecified; I44.7 Left bundle-branch block, unspecified; R00.1 Bradycardia, unspecified
CPT/HCPCS: 36415; 80053; 80061; 80076; 82550; 84443; 85025

== ENCOUNTER → 2023-07-24 | Outpatient (CLI) | payer MEDICARE, BC, SELFPAY ==
--- NOTE | 2023-07-24 12:46 | ECHOD_ITS ---
Reason For Study: CAD/ASHD Procedure This was a 2D Doppler, Color Flow transthoracic echocardiogram. Exam performed in department. Left Ventricle Moderate concentric left ventricular hypertrophy. Septal motion consistent with bundle branch block. The left ventricular ejection fraction is 55 %. Normal diastology for age. Right Ventricle Normal right ventricle. Atria The left atrium is mildly enlarged. Normal right atrium. Mitral Valve Moderate to severe eccentric posterior mitral valve regurgitation. Recommend ALBER or cardiac MRI for further evaluation. Tricuspid Valve Moderate (2+) tricuspid valve insufficiency. Right ventricular systolic pressure estimated to be 40 mmHg. Aortic Valve Trisinus/trileaflet aortic valve. Mild-Moderate (1-2+) aortic valve insufficiency. Pulmonic Valve The pulmonic valve is not well visualized. Great Vessels Normal sized aortic root. Pericardium/Pleural No pericardial effusion. MMode/2D Measurements & Calculations LVIDd: 3.7 cm IVSd: 1.5 cm Ao root diam: 3.5 cm LVIDs: 2.2 cm LVPWd: 0.96 cm FS: 39.6 % LAV(MOD-bp): 39.9 ml LVAd ap4: 26.8 cm2 SV(MOD-sp4): 50.6 ml LAV(MOD-bp) Indexed: 26.4 ml/m2 LVLd ap4: 6.9 cm LAV(MOD-sp2): 44.4 ml EDV(MOD-sp4): 83.8 ml LAV(MOD-sp4): 36.2 ml EDV(sp4-el): 88.2 ml LVAs ap4: 15.2 cm2 LVLs ap4: 6.0 cm ESV(MOD-sp4): 33.2 ml ESV(sp4-el): 33.0 ml EF(MOD-sp4): 60.4 % EF(sp4-el): 62.6 % SV(sp4-el): 55.2 ml LA A4 area: 15.1 cm2 LA dimension(2D): 3.3 cm RA A4 area: 12.7 cm2 TAPSE: 2.3 cm Time Measurements MV dec time: 0.22 sec Doppler Measurements & Calculations MV E max babar: 60.9 cm/sec Lat Peak E' Babar: 9.2 cm/sec Med Peak E' Babar: 8.3 cm/sec MV A max babar: 74.2 cm/sec E/E' lat: 6.6 E/E' med: 7.3 MV E/A: 0.82 MV V2 max: 79.6 cm/sec Ao V2 max: 131.3 cm/sec MV max P.5 mmHg MV dec slope: 274.1 cm/sec2 Ao max P.9 mmHg MV V2 mean: 42.3 cm/sec Ao V2 mean: 88.9 cm/sec MV mean P.89 mmHg Ao mean P.6 mmHg MV V2 VTI: 25.8 cm Ao V2 VTI: 35.7 cm AV (velocity ratio): 0.74 AI max babar: 428.1 cm/sec LV V1 max: 98.3 cm/sec TR max babar: 276.7 cm/sec AI max P.3 mmHg LV V1 max P.9 mmHg TR max P.6 mmHg LV V1 mean P.1 mmHg AI dec slope: 243.3 cm/sec2 LV V1 mean: 68.4 cm/sec AI P1/2t: 515.4 msec LV V1 VTI: 26.3 cm ECHO/Echo Complete Interpretation Summary Moderate concentric left ventricular hypertrophy. The left ventricular ejection fraction is 55 %. The left atrium is mildly enlarged. Moderate to severe eccentric posterior mitral valve regurgitation. Recommend TE E or cardiac MRI for further evaluation. Moderate (2+) tricuspid valve insufficiency. Right ventricular systolic pressure estimated to be 40 mmHg. Mild-Moderate (1-2+) aortic valve insufficiency. Ordering Physician: Cecelia Goff Referring Physician: Cecelia Goff Performed By: Rachel Cantu RCS
--- OUTSIDE RECORDS SUMMARY | 2023-07-24 20:46 | XMS RPT_ITS | CCD ---
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 Attending Unavailable MUSHTAQ ROSE Primary Care Unavailable MARCO REYES, REYNOLD Attending Unavailable MUSHTAQ ROSE Primary Care Unavailable MARCO REYES, REYNOLD Attending Unavailable MUSHTAQ ROSE Primary Care Unavailable MARCO REYES, REYNOLD Attending Unavailable MUSHTAQ ROSE Primary Care Unavailable Allergies Allergy Classification Reported Allergen(s) Allergy Type Date of Onset Reaction(s) Facility (3 sources) NKDA drug allergy 08-14-2011 [facility] Work Phone: (3 sources) NKA drug allergy 08-14-2011 [facility] Work Phone: Medications Current Medications Medication Drug [...] One tablet by mouth weekly ALENDRONATE SODIUM [id number] Alivia Dey RN Problems Active Problems Problem [...] (current) use of other medications; Translations: [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] Onset: 2 09-30-2011 Episodic [...] [degF] Reynold Marco Jr., DPM Work Phone: [facility] 04-27-2021 08:11-0500 Diastolic blood pressure 55 mm[Hg] Reynold Marco Jr., DPM Work Phone: [facility] 04-27-2021 08:11-0500 Heart rate 61 /min Reynold Marco Jr., DPM Work Phone: [facility] 04-27-2021 08:11-0500 Systolic blood pressure 112 mm[Hg] Reynold Marco Jr., DPM Work Phone: [facility] 02-02-2021 08:31-0400 Body temperature 98.1 [degF] Reynold Marco Jr., DPM Work Phone: [facility] 02-02-2021 08:31-0400 Diastolic blood pressure 43 mm[Hg] Reynold Marco Jr., DPM Work Phone: [facility] 02-02-2021 08:31-0400 Heart rate 57 /min Reynold Marco Jr., DPM Work Phone: [facility] 02-02-2021 08:31-0400 Systolic blood pressure 110 mm[Hg] Reynold Marco Jr., DPM Work Phone: [facility] 01-05-2021 08:17-0400 Body temperature 96.8 [degF] Reynold Marco Jr., DPM Work Phone: [facility] 01-05-2021 08:17-0400 Diastolic blood pressure 42 mm[Hg] Reynold Marco Jr., DPM Work Phone: [facility] 01-05-2021 08:17-0400 Heart rate 59 /min Reynold Marco Jr., DPM Work Phone: [facility] 01-05-2021 08:17-0400 Systolic blood pressure 110 mm[Hg] Reynold Marco Jr., DPM Work Phone: [facility] 12-08-2020 10:48-0400 Body height 149.9 cm Reynold Marco Jr., DPM Work Phone: [facility] 12-08-2020 10:48-0400 Body mass index (BMI) [Ratio] 31.71 kg/m2 Reynold Marco Jr., DPM Work Phone: [facility] 12-08-2020 10:48-0400 Body temperature 97.9 [degF] Reynold Marco Jr., DPM Work Phone: [facility] 12-08-2020 10:48-0400 Body weight 71.22 kg Reynold Marco Jr., DPM Work Phone: [facility] 12-08-2020 10:48-0400 Diastolic blood pressure 51 mm[Hg] Reynold Marco Jr., DPM Work Phone: [facility] 12-08-2020 10:48-0400 Heart rate 55 /min Reynold Marco Jr., DPM Work Phone: [facility] 12-08-2020 10:48-0400 Systolic blood pressure 114 mm[Hg] Reynold Marco Jr., DPM Work Phone: [facility] 10-25-2020 08:33-0400 Body height 149.9 cm Reynold Marco Jr., DPM Work Phone: [facility] 10-25-2020 08:33-0400 Body mass index (BMI) [Ratio] 31.71 kg/m2 Reynold Marco Jr., DPM Work Phone: [facility] 10-25-2020 08:33-0400 Body weight 71.22 kg Reynold Marco Jr., DPM Work Phone: [facility] 12-05-2016 07:59-0400 BMI (Body Mass Index) 31.08 kg/m2 Harumi DeFinmaricel [facility] Work Phone: 12-05-2016 07:59-0400 BP Diastolic 60 mm[Hg] Harumi DeFinis [facility] Work Phone: 12-05-2016 07:59-0400 BP Systolic 138 mm[Hg] Harumi DeFinis [facility] Work Phone: 12-05-2016 07:59-0400 Height 154.94 cm Harumi DeFinis [facility] Work Phone: 12-05-2016 07:59-0400 Pulse (Heart Rate) 58 /min Harumi DeFinis [facility] Work Phone: 12-05-2016 07:59-0400 Respiratory Rate 20 /min [facility]umi DeFinis [facility] Work Phone: 12-05-2016 07:59-0400 Weight 74.62 kg Harumi DeFinis [facility] Work Phone: 06-17-2016 11:51-0500 Heart rate 58 /min Harumi DeFinis [facility] Work Phone: 06-17-2016 11:24-0500 BMI (Body Mass Index) 31.02 kg/m2 Mushtaq Edwards MD [facility] Work Phone: 06-17-2016 11:24-0500 BP Diastolic 70 mm[Hg] Mushtaq Edwards MD [facility] Work Phone: 06-17-2016 11:24-0500 BP Systolic 134 mm[Hg] Mushtaq Edwards MD [facility] Work Phone: 06-17-2016 11:24-0500 BSA (Body Surface Area) 1.74 m2 Mushtaq Edwards MD [facility] Work Phone: 06-17-2016 11:24-0500 Pulse (Heart Rate) 60 /min [facility]htaq [facility] Work Phone: 06-17-2016 11:24-0500 Respiratory Rate 16 /min Mushtaq Edwards MD [facility] Work Phone: 06-17-2016 11:24-0500 Weight 74.48 kg Mushtaq Edwards MD [facility] Work Phone: 10-11-2013 08:38-0400 Heart rate 416 ms Luis Armando [facility]maricel [facility] Work Phone: 08-22-2011 16:48-0400 Height 154.94 cm Mushtaq [facility] Work Phone: Encounters Encounter Date Encounter Type Care Provider Facility Start: 04-27-2021 End: 04-27-2021 amb[address] DIEHL JR. [facility] Start: 04-27-2021 End: 04-27-2021 Office outpatient visit 15 minutes Reynold Diehl DPM Work Phone: [facility] Procedures Date Procedure Procedure [...] 11-07-2029 Screening for malignant neoplasm of colon [facility] Start: 04-27-2021 End: 04-27-2021 Patient encounter procedure 04/27/2021 Office Visit Podiatry Reynold Diehl Jr., DPK[address] [place] [address] [facility] Start: 02-02-2021 End: 02-02-2021 Patient encounter procedure 02/02/2021 Office Visit Podiatry Reynold Diehl Jr., D[address] [place] [address] [facility] Physician [facility] Start: 01-10-2021 COVID-19 Vaccine (3 - Booster for Moderna series) COVID-19 Vaccine (3 - Booster for Moderna series) [facility] Start: 01-10-2021 Influenza vaccination Sequential Influenza Vaccine (#1) [facility] Start: 01-05-2021 End: 01-05-2021 Patient encounter procedure 01/05/2021 Office Visit Podiatry Reynold Diehl Jr., DPM [address] [place] [address] [phone] [facility] Physician [facility] Start: 11-22-2020 End: 11-22-2020 Patient encounter procedure 11/22/2020 Office Visit Podiatry Reynold Diehl Jr., DPM [address] [place] [address] [phone] [facility] Physician [facility] Start: 06-18-2017 End: 06-18-2017 Appointment Appointment [facility] Work Phone: Start: 05-12-2017 End: 12-05-2016 *Hepatic Function Panel *Hepatic Function Panel [facility] Work Phone: Start: 05-12-2017 End: 12-05-2016 Lipid panel [AGGREGATE] *Lipid Profile CC PCP [facility] Work Phone: Start: 12-05-2016 End: 12-05-2016 Appointment Appointment [facility] Work Phone: Start: 12-05-2016 End: 12-05-2016 Follow Up Appt 6 months Follow Up Appt 6 months [facility] Work Phone: Start: 12-05-2016 End: 12-05-2016 PFM PFM [facility] Work Phone: Start: 10-28-2016 End: 12-02-2016 *Hepatic Function Panel *Hepatic Function Panel [facility] Work Phone: Start: 10-28-2016 End: 12-02-2016 Lipid panel [AGGREGATE] *Lipid Profile CC PCP [facility] Work Phone: Start: 06-17-2016 End: 06-27-2016 *BMP *BMP [facility] Work Phone: Start: 06-17-2016 End: 06-27-2016 aPTT *PTT-Partial Thromboplastin Time [facility] Work Phone: Start: 06-17-2016 End: 06-27-2016 aPTT Coag time (PPP) *PTT-Partial Thromboplastin Time [facility] Work Phone: Start: 06-17-2016 End: 06-27-2016 CBC W Auto Differential panel - Blood *CBC without Diff [facility] Work Phone: Start: 06-17-2016 End: 06-28-2016 Chest x-ray X-Ray, Chest, PA & Lateral [facility] Work Phone: Start: 06-17-2016 End: 06-27-2016 Coagulation factor induced.INR assay in platelet poor plasma *PT/INR [facility] Work Phone: Start: 06-17-2016 End: 06-17-2016 Echocardiography Echocardiogram (complete) [facility] Work Phone: Start: 06-17-2016 End: 06-17-2016 Electrocardiogram, complete EKG (In office) [facility] Work Phone: Start: 06-17-2016 End: 06-17-2016 Follow Up Appt 6 months Follow Up Appt 6 months [facility] Work Phone: Start: 06-17-2016 End: 06-17-2016 Follow Up Appt Other Follow Up Appt Other [facility] Work Phone: Start: 06-17-2016 End: 06-17-2016 Left Heart Cath Left Heart Cath [facility] Work Phone: Start: 06-17-2016 End: 06-17-2016 MMM MMM [facility] Work Phone: Start: 04-17-2016 End: 04-29-2016 *Hepatic Function Panel *Hepatic Function Panel [facility] Work Phone: Start: 04-17-2016 End: 04-29-2016 Lipid panel [AGGREGATE] *Lipid Profile CC PCP [facility] Work Phone: Start: 10-31-2015 End: 10-31-2015 Electrocardiogram, complete EKG (In office) [facility] Work Phone: Start: 10-31-2015 End: 10-31-2015 Follow Up Appt 6 months Follow Up Appt 6 months [facility] Work Phone: Start: 10-31-2015 End: 10-31-2015 PFM PFM [facility] Work Phone: Start: 10-23-2015 End: 10-18-2015 *Hepatic Function Panel *Hepatic Function Panel [facility] Work Phone: Start: 10-23-2015 End: 10-18-2015 Lipid panel [AGGREGATE] *Lipid Profile CC PCP [facility] Work Phone: Start: 04-19-2015 End: 05-10-2015 *BMP *BMP [facility] Work Phone: Start: 04-19-2015 End: 04-21-2015 *Hepatic Function Panel *Hepatic Function Panel [facility] Work Phone: Start: 04-19-2015 End: 04-19-2015 Follow Up Appt 6 months Follow Up Appt 6 months [facility] Work Phone: Start: 04-19-2015 End: 04-21-2015 Lipid panel [AGGREGATE] *Lipid Profile CC PCP [facility] Work Phone: Start: 04-19-2015 End: 04-19-2015 MMM MMM [facility] Work Phone: Start: 10-10-2014 End: 10-18-2014 *Hepatic Function Panel *Hepatic Function Panel [facility] Work Phone: Start: 10-10-2014 End: 10-18-2014 Lipid panel [AGGREGATE] *Lipid Profile CC PCP [facility] Work Phone: Start: 09-29-2014 End: 09-29-2014 Follow Up Appt 6 months Follow Up Appt 6 months [facility] Work Phone: Start: 09-29-2014 End: 09-29-2014 PFM PFM [facility] Work Phone: Start: 09-29-2014 End: 09-29-2014 Venous doppler Venous doppler [facility] Work Phone: Start: 06-28-2014 End: 06-28-2014 Electrocardiogram, complete EKG (In office) [facility] Work Phone: Start: 06-28-2014 End: 06-28-2014 Follow Up Appt Other Follow Up Appt Other [facility] Work Phone: Start: 06-28-2014 End: 06-28-2014 Nuclear stress test -Lexiscan Nuclear stress test -Lexiscan [facility] Work Phone: Start: 04-11-2014 End: 04-18-2014 *Hepatic Function Panel *Hepatic Function Panel [facility] Work Phone: Start: 04-11-2014 End: 04-18-2014 Lipid panel [AGGREGATE] *Lipid Profile CC PCP [facility] Work Phone: Start: 04-01-2014 End: 04-01-2014 Follow Up Appt 6 months Follow Up Appt 6 months [facility] Work Phone: Start: 04-01-2014 End: 04-25-2014 Follow Up BP Check Follow Up BP Check [facility] Work Phone: Start: 04-01-2014 End: 04-01-2014 MMM MMM [facility] Work Phone: Start: 11-09-2013 End: 10-12-2013 *Hepatic Function Panel *Hepatic Function Panel [facility] Work Phone: Start: 11-09-2013 End: 10-12-2013 Lipid panel [AGGREGATE] *Lipid Profile CC PCP [facility] Work Phone: Start: 10-11-2013 End: 10-12-2013 CBC W Auto Differential panel - Blood *CBC without Diff [facility] Work Phone: Start: 10-11-2013 End: 10-11-2013 Electrocardiogram, complete EKG (In office) [facility] Work Phone: Start: 10-11-2013 End: 10-11-2013 Follow Up Appt 6 months Follow Up Appt 6 months [facility] Work Phone: Start: 10-11-2013 End: 10-11-2013 PFM PFM [facility] Work Phone: Start: 05-12-2013 End: 05-17-2013 *Hepatic Function Panel *Hepatic Function Panel [facility] Work Phone: Start: 05-12-2013 End: 05-17-2013 Lipid panel [AGGREGATE] *Lipid Profile CC PCP [facility] Work Phone: Start: 2013 End: 2013 Follow Up Appt 6 months Follow Up Appt 6 months [facility] Work Phone: Start: 2013 End: 2013 MMM MMM [facility] Work Phone: Start: 11-09-2012 End: 11-16-2012 *Hepatic Function Panel *Hepatic Function Panel [facility] Work Phone: Start: 11-09-2012 End: 11-16-2012 Lipid panel [AGGREGATE] *Lipid Profile [facility] Work Phone: Start: 09-18-2012 End: 09-18-2012 Electrocardiogram, complete EKG (In office) [facility] Work Phone: Start: 09-18-2012 End: 09-18-2012 Follow Up Appt 6 months Follow Up Appt 6 months [facility] Work Phone: Start: 09-18-2012 End: 09-18-2012 Nuclear stress test -exercise Nuclear stress test -exercise [facility] [employer] Work Phone: Start: 09-18-2012 End: 09-18-2012 PFM PFM [facility] Work Phone: Start: 05-18-2012 End: 05-27-2012 *Hepatic Function Panel *Hepatic Function Panel [facility] Work Phone: Start: 05-18-2012 End: 05-27-2012 Lipid panel [AGGREGATE] *Lipid Profile [facility] Work Phone: Start: 2012 Fall risk assessment Falls Risk Assessment [facility] Start: 2012 Pneumococcal Vaccine: Age 65+ (1 of 1 - PPSV23) Pneumococcal Vaccine: Age 65+ (1 of 1 - PPSV23) [facility] Start: 03-19-2012 End: 03-19-2012 Follow Up Appt 6 months Follow Up Appt 6 months [facility] Work Phone: Start: 12-02-2011 End: 09-18-2012 Follow Up Appt 4 months Follow Up Appt 4 months [facility] Work Phone: Start: 11-18-2011 End: 09-30-2011 *Hepatic Function Panel *Hepatic Function Panel [facility] Work Phone: Start: 11-18-2011 End: 11-19-2011 Lipid panel [AGGREGATE] *Lipid Profile [facility] Work Phone: Start: 10-11-2011 End: 11-19-2011 Cardiovascular stress test using treadmill Treadmill stress test (no imaging) [facility] Work Phone: Start: 09-19-2011 End: 09-20-2011 *BMP *BMP [facility] Work Phone: Start: 09-19-2011 End: 09-20-2011 *CBC with Differential *CBC with Differential [facility] Work Phone: Start: 09-19-2011 End: 09-20-2011 *Hepatic Function Panel *Hepatic Function Panel [facility] Work Phone: Start: 09-19-2011 End: 11-19-2011 aPTT *PTT-Partial Thromboplastin Time [facility] Work Phone: Start: 09-19-2011 End: 11-19-2011 aPTT Coag time (PPP) *PTT-Partial Thromboplastin Time [facility] Work Phone: Start: 09-19-2011 End: 09-20-2011 Chest x-ray X-Ray, Chest, PA & Lateral [facility] Work Phone: Start: 09-19-2011 End: 11-19-2011 Coagulation factor induced.INR assay in platelet poor plasma *PT/INR - Standing Order [facility] Work Phone: Start: 09-19-2011 End: 09-20-2011 Electrocardiogram, complete EKG (In office) [facility] Work Phone: Start: 09-19-2011 End: 11-19-2011 Follow Up Appt Other Follow Up Appt Other [facility] Work Phone: Start: 09-19-2011 End: 09-19-2011 Left & Right Heart Cath Left & Right Heart Cath [facility] Work Phone: Start: 09-19-2011 End: 09-20-2011 Lipid panel [AGGREGATE] *Lipid Profile [facility] Work Phone: Start: 09-05-2011 End: 09-20-2011 *BMP *BMP [facility] Work Phone: Start: 09-05-2011 End: 09-19-2011 aPTT *PTT-Partial Thromboplastin Time [facility] Work Phone: Start: 09-05-2011 End: 09-19-2011 aPTT Coag time (PPP) *PTT-Partial Thromboplastin Time [facility] Work Phone: Start: 09-05-2011 End: 09-20-2011 CBC W Auto Differential panel - Blood *CBC without Diff [facility] Work Phone: Start: 09-05-2011 End: 09-20-2011 Chest x-ray X-Ray, Chest, PA & Lateral [facility] Work Phone: Start: 09-05-2011 End: 09-19-2011 Coagulation factor induced.INR assay in platelet poor plasma *PT/INR [facility] Work Phone: Start: 09-05-2011 End: 09-06-2011 Left & Right Heart Cath Left & Right Heart Cath [facility] Work Phone: Start: 08-22-2011 End: 08-23-2011 24 hour holter monitor 24 hour holter monitor [facility] Work Phone: Start: 08-22-2011 End: 08-23-2011 Echocardiography Echocardiogram (complete) [facility] Work Phone: Start: 08-22-2011 End: 08-23-2011 Electrocardiogram, complete EKG (In office) [facility] Work Phone: Start: 08-22-2011 End: 08-23-2011 Follow Up Appt 3 months Follow Up Appt 3 months [facility] Work Phone: Start: 08-22-2011 End: 08-23-2011 Nuclear stress test -exercise Nuclear stress test -exercise [facility] Work Phone: Start: 1997 Administration of herpes zoster vaccine Zoster Vaccines (1 of 2) [facility] Start: 1997 Screening for malignant neoplasm of colon [facility] Start: 1987 Screening for malignant neoplasm of breast Mammogram [facility] Start: 1987 Screening mammography Mammogram [facility] Start: 1965 Hepatitis C screening Hepatitis C Screening [facility] Start: 1959 COVID-19 Vaccine (1) COVID-19 Vaccine (1) [facility] Start: 1959 Depression screening using PHQ-9 (Patient Health Questionnaire 9) score [facility] Start: 1953 Pneumococcal Vaccine: Age 65+ (1 of 2 - PPSV23) Pneumococcal Vaccine: Age 65+ (1 of 2 - PPSV23) [facility] Start: 1950 History and physical examination, annual for health maintenance Wellness Visit [facility] Start: 1947 Screening for osteoporosis Dexa Scan [facility] Start: 1947 Tetanus vaccination Tetanus: Every 10yrs [facility] Patient Education [facility] Work Phone: Payers Date Payer Category Payer Unknown 2017 Unknown [id number] 2017 Unknown [id number] 2012 Medicare 2012 Medicare [id number] 2012 Medicare [id number] 1947 Unknown [id number] 1947 Unknown [id number] [id number] 1947 Unknown [id number] [id number]. [id number] 1947 Unknown [id number] [id number]. [id number] 1947 Unknown [id number] [id number]. [id number] Social History Date Type Detail Facility Start: 11-13-2020 End: 12-08-2020 Tobacco smoking status NHIS Never smoker [facility] Start: 11-13-2020 End: 04-27-2021 Alcohol intake Lifetime non-drinker (finding) [facility] Start: 1945 Sex Assigned At Not on file [facility] Exposure to SARS-CoV -2 (event) Not sure [facility] Start: 11-13-2020 Tobacco use and exposure Smokeless t obacco non-user [facility] History of Present illness Narrative 04-27-2021 Reynold [...] her ganglion cyst. documented in this encounter [facility] History of Present illness Narrative 02-02-2021 Reynold [...] this subchronic modality documented in this encounter [facility] History of Present illness Narrative 01-05-2021 Reynold [...] this subchronic modality documented in this encounter [facility] History of Present illness Narrative 12-08-2020 Reynold [...] 1 month review documented in this encounter [facility] Evaluation note Note Date & Type Note Facility documented in this encounter [facility] Evaluation note Note Date & Type Note Facility documented in this encounter [facility] Evaluation note Note Date & Type Note Facility documented in this encounter [facility] Evaluation note Note Date & Type Note Facility documented in this encounter [facility] Evaluation note Note Date & Type Note Facility documented in this encounter [facility] Summary Purpose Family History No Family History Records FoundNo Family History Records Found Advance Directives No Advanced Directives Records FoundDocuments on File Type Date Recorded 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 Advance Directives and Livin g Will 10/25/2020 12:00 AM Documents on File Type Date Recorded 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 [facility] [employer] [facility]. provides no warranty or guarantee of the accuracy or completeness of information in this document.
== END | disposition home or self-care (01) ==
LOC: CVS 12:45
PROVIDERS: PCP Family Medicine; Referring Provider Internal Medicine Cardiovascular Disease; Visit Provider Internal Medicine Cardiovascular Disease
DX: R94.31 Abnormal electrocardiogram [ECG] [EKG] (principal); I25.10 Atherosclerotic heart disease of native coronary artery without angina pectoris; I10 Essential (primary) hypertension; R06.00 Dyspnea, unspecified
CPT/HCPCS: 93306

== ENCOUNTER → 2023-08-22 | Outpatient (CLI) | payer MEDICARE, BC, SELFPAY ==
[2023-08-22 10:56] LABS: Anion Gap 3 (5-15); BUN 9 mg/dL (7-18); BUN/Creat Ratio 13.2 RATIO (10-20); Calcium,Total 10.2 mg/dL (8.5-10.1); Chloride 108 mmol/L (98-107); Creatinine, Serum 0.68 mg/dL (0.55-1.02); EST Glomerular Filtration Rate 89 mL/min (>60); Est Glom Filt Rate - Afr Amer 107 mL/min (>60); Glucose 97 mg/dL (74-106); Potassium 3.9 mmol/L (3.5-5.1); Sodium Level 140 mmol/L (136-145)
== END | disposition home or self-care (01) ==
LOC: MTLAB 08:43
PROVIDERS: PCP Family Medicine; Referring Provider Internal Medicine Cardiovascular Disease; Visit Provider Internal Medicine Cardiovascular Disease
DX: I34.0 Nonrheumatic mitral (valve) insufficiency (principal); R93.1 Abnormal findings on diagnostic imaging of heart and coronary circulation; I07.1 Rheumatic tricuspid insufficiency
CPT/HCPCS: 36415; 80048

== ENCOUNTER 2023-08-27 09:00 | Outpatient (CLI) | payer MEDICARE, BC, SELFPAY ==
--- NOTE | 2023-08-27 09:04 | ECHOTEE_ITS ---
Reason For Study: MVP Medication ALBER probe 6VT-D (SN [id number]) passed without difficulty. No complications were noted. Cetacaine Topical [place] given X3 orally. Versed 2 mg given slow IVP. Fentanyl 50 mcg given slow IVP. Left Ventricle Normal LV size. Left ventricular systolic function is normal. The estimated ejection fraction is 60 %. No regional wall motion abnormalities noted. Right Ventricle Normal RV size. Normal systolic function. Atria Normal atrial septum. Bubble contrast study negative for right to left interatrial shunt. Normal left atrium. No thrombus is detected in the left atrial appendage. Normal right atrium. Mitral Valve Normal mitral valve. Mild (1+) eccentric mitral valve insufficiency. Tricuspid Valve Normal tricuspid valve. Mild (1+) tricuspid valve insufficiency. Aortic Valve Trisinus/trileaflet aortic valve. Mild (1+) aortic valve insufficiency. Pulmonic Valve Normal pulmonic valve. Mild (1+) pulmonic valve insufficiency. Vessels Normal aortic root. The pulmonary artery is normal size. Pericardium No pericardial effusion. ECHO/Echo Transesophageal (ALBER) Interpretation Summary Normal LV size. Left ventricular systolic function is normal. The estimated ejection fraction is 60 %. Mild (1+) eccentric mitral valve insufficiency. Mild (1+) aortic valve insufficiency. Ordering Physician: Cecelia Goff Referring Physician: Mushtaq Blum Performed By: Prema Schuster, RDCS, RVT
== END 2023-08-27 11:40 | disposition home or self-care (01) ==
LOC: CVS 09:01
PROVIDERS: PCP Family Medicine; Referring Provider Internal Medicine Cardiovascular Disease; Visit Provider Internal Medicine Cardiovascular Disease
DX: I07.1 Rheumatic tricuspid insufficiency (principal); R93.1 Abnormal findings on diagnostic imaging of heart and coronary circulation; I34.0 Nonrheumatic mitral (valve) insufficiency
CPT/HCPCS: 93312; 93320; 93325; J7040; A4216

== ENCOUNTER → 2023-10-20 | Outpatient (CLI) | payer MEDICARE, BC, SELFPAY ==
[2023-10-20 12:51] LABS: Absolute Lymphocyte Count 1.55 X10^3/uL (0.83-4.51); Absolute Neutrophil Count 3.8 X10^3/uL (2.0-7.7); Basophil# 0.05 X10^3/uL; Basophil% 0.8 % (0-1); Eosinophils% 1.7 % (0-5); Hematocrit 41.5 % (37-47); Hemoglobin 13.5 g/dL (12.0-15.0); Lymphocyte # 1.55 X10^3/ul (0.83-4.51); Mean Corp Hgb Conc 32.5 g/dL (32-36); Mean Corpuscular Hgb 31.3 pg (27.0-32.0); Mean Corpuscular Volume 96.1 fL (81-99); Mean Platelet Vol. 9.1 fl (6.2-12.0); Monocyte# 0.46 X10^3/uL; Monocyte% 7.7 % (0-10); NRBC Flagged by Analyzer 0 % (0-5); Neutrophil # 3.76 X10^3/uL (2.7-7.7); Neutrophil % 63.1 % (47-70); Platelet Count 245 K/mm3 (150-450); RBC Distribution Width CV 13.6 % (11.6-14.6); RBC Distribution Width SD 48.6 fl (35.1-43.9); Red Blood Count 4.32 M/mm3 (4.2-5.4)
[2023-10-20 13:31] LABS: ALB/GLOB Ratio 1.2 RATIO (0.9-2.4); AST(SGOT) 23 U/L (15-37); Alanine Aminotransfer ALT/SGPT 28 U/L (13-56); Albumin, Serum 3.9 g/dL (3.2-5.0); Alkaline Phosphatase 79 U/L (45-117); Anion Gap 3 (5-15); BUN 9 mg/dL (7-18); Calcium,Total 10.1 mg/dL (8.5-10.1); Chloride 109 mmol/L (98-107); Cholesterol 142 mg/dL (200); Creatinine, Serum 0.64 mg/dL (0.55-1.02); EST Glomerular Filtration Rate 96 mL/min (>60); Est Glom Filt Rate - Afr Amer 116 mL/min (>60); Globulin 3.3 g/dL (2.2-4.2); Glucose 88 mg/dL (74-106); High Density Lipoprotein 76 mg/dL; Potassium 4.1 mmol/L (3.5-5.1); Protein, Total 7.2 g/dL (6.4-8.2); Sodium Level 139 mmol/L (136-145); T4 Free Direct 0.98 ng/dL (0.76-1.46); Thyroid Stim Hormone (TSH) 0.98 uIU/mL (0.358-3.74); Triglycerides 76 mg/dL; Very Low Density Lipoprotein 15 mg/dL (5-40)
== END | disposition home or self-care (01) ==
LOC: MFPLAB 10:59
PROVIDERS: PCP Family Medicine; Visit Provider Family Medicine
DX: I10 Essential (primary) hypertension (principal)
CPT/HCPCS: 36415; 80053; 80061; 84439; 84443; 84481; 85025

== ENCOUNTER → 2023-11-10 | Outpatient (CLI) | payer MEDICARE, BC, SELFPAY ==
--- NOTE | 2023-11-10 09:52 | STRESSREP_ITS ---
Stress Test Report Pharmacologic myocardial perfusion stress test. 78-year-old male with a history of chest pain Resting EKG demonstrates sinus bradycardia with a rate of 53 bpm. Resting blood pressure is 118/64 mmHg. left bundle branch block pattern is noted. 0.4 mg of regadenoson was infused per usual protocol followed by rapid intravenous saline flush injection. Continuous EKG monitoring was performed. The maximum heart rate was 71 bpm which was 49% of max impacted heart rate the maximum workload was 1 metabolic equivalent. At rest there were no ST or T wave changes noted to suggest ischemia and at peak infusion nonspecific ST changes were noted which did not meet the criteria for ischemia. No clinical angina is noted. The final blood pressure was 118/60 mmHg. Myocardial perfusion protocol. 11.4 mCi of technetium 99m sestamibi was injected at rest. 0.4 mg of regadenoson was infused per usual protocol. At peak infusion 33.7 mCi of te chnetium 99m sestamibi was injected stress images were obtained stress and rest images were reconstructed and compared in the short axis vertical long and horizontal long axis. Gated images were also obtained. Perfusion SPECT analysis: Review of the stress images demonstrate normal uptake of tracer noted in all areas of the myocardium. A small area in the anterior apex appears to have reduced perfusion. The resting images similar demonstrated normal uptake of tracer noted in all areas of the myocardium. A small area in the apex also has reduced perfusion. No areas of reversibility are noted to suggest ischemia. Gated SPECT analysis: The gated ejection fraction is 70%. 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 Preserved ejection fraction.
== END | disposition home or self-care (01) ==
LOC: CVS 06:24
PROVIDERS: PCP Family Medicine; Referring Provider Family Medicine; Visit Provider Family Medicine
DX: R06.02 Shortness of breath (principal)
CPT/HCPCS: 78452; 93017; A9500; A4216; J2785

== ENCOUNTER → 2024-02-20 | Outpatient (CLI) | payer MEDICARE, BC, SELFPAY ==
--- NOTE | 2024-02-20 12:52 | BD_ITS ---
STUDY: DUAL ENERGY X-RAY ABSORPTIOMETRY / DXA REASON FOR EXAM: Female, 78 years old. V76.12ScreeningBONE DENSITY REASON FOR EXAM TECHNIQUE: Bone Mineral Density (BMD) measurements of lumbar spine and bilateral hips were obtained. COMPARISON: Comparison is made with prior study dated October 25, 2020. FINDINGS: Lumbar Spine (L1-L4): g/cm2 (0.956) / T-score (-0.5) / Z-score (1.9) Findings are suggestive of normal bone density with a low fracture risk. Left Femur Total: g/cm2 (0.753) / T-score (-1.5) / Z-score (0.3) Left Femoral Neck: g/cm2 (0.686) / T-score (-1.5) / Z-score (0.7) Right Femur Total: g/cm2 (0.731) / T-score (-1.7) / Z-score (0.2) Right Femoral Neck: g/cm2 (0.656) / T-score (-1.7) / Z-score (0.4) The T-Scores on the most recent prior examination were: Lumbar Spine (L1-L4): There has been worsening of bone density since the previous examination. Left Femur Total: which represents a worsening of 5.1%. Right Femur Total: which represents a worsening of 0.6%. BD/Dexa Bone Density Study IMPRESSION: The patient is considered osteopenic as outlined below according to World Derek Organization (WHO) criteria with a moderate fracture risk. There has been worsening of bone density since the previous examination. Reference Information: The T-score is the number of standard deviations above or below the standard which is normal for young adults at their peak bone mineral density. The World Health Organization (WHO) interprets the T-scores as follows: Above -1 Normal bone density Between -1 and -2.5 Osteopenia Equal to / or below -2.5 Osteoporosis As a practical clinical guideline, osteopenia may be graded as follows: Mild -1 through -1.5 Moderate -1.6 through -2.0 Severe -2.1 through -2.4 The Z-score is the number of standard deviations above or below age-matched controls. A Z-score of less than -1.5 would be considered abnormal. References: 1. NIH Osteoporosis and Related Bone Diseases www osteo.org 2. International Society for Clinical Densitometry www iscd.org 3. National Osteoporosis Foundation www nof.org Electronically Signed: Josafat Corey MD at 13:30 EDT ,
== END | disposition home or self-care (01) ==
LOC: OPBD 12:49
PROVIDERS: PCP Family Medicine; Referring Provider Family Medicine; Visit Provider Family Medicine
DX: Z78.0 Asymptomatic menopausal state (principal); M85.80 Other specified disorders of bone density and structure, unspecified site
CPT/HCPCS: 77080

== ENCOUNTER → 2024-05-10 | Outpatient (CLI) | payer MEDICARE, BC, SELFPAY ==
[2024-05-10 10:36] LABS: Anion Gap 1 (5-15); BUN 17 mg/dL (7-18); Calcium,Total 10.4 mg/dL (8.5-10.1); Chloride 110 mmol/L (98-107); Cholesterol 140 mg/dL (200); Creatinine, Serum 0.57 mg/dL (0.55-1.02); EST Glomerular Filtration Rate 110 mL/min (>60); Est Glom Filt Rate - Afr Amer 133 mL/min (>60); Glucose 98 mg/dL (74-106); High Density Lipoprotein 80 mg/dL; Potassium 3.9 mmol/L (3.5-5.1); Sodium Level 141 mmol/L (136-145); Thyroid Stim Hormone (TSH) 0.923 uIU/mL (0.358-3.740); Triglycerides 56 mg/dL; Very Low Density Lipoprotein 11 mg/dL (5-40)
== END | disposition home or self-care (01) ==
LOC: MFPLAB 08:30
PROVIDERS: PCP Family Medicine; Referring Provider Family Medicine; Visit Provider Family Medicine
DX: I10 Essential (primary) hypertension (principal); E03.9 Hypothyroidism, unspecified
CPT/HCPCS: 36415; 80048; 80061; 84439; 84443; 84481

== ENCOUNTER → 2024-05-18 | Outpatient (CLI) | payer MEDICARE, BC, SELFPAY ==
--- NOTE | 2024-05-18 12:40 | US_ITS ---
EXAM: US SOFT TISSUES HEAD AND NECK, THYROID CLINICAL INDICATION: Multiple thyroid nodules TECHNIQUE: Greyscale and color doppler imaging was performed of the thyroid gland. COMPARISON: 03/27/2018, 10/12/2021, 10/24/2022. FINDINGS: LEFT THYROID LOBE: The left thyroid lobe measures 4.2 x 1.5 x 1.3 cm. In the left thyroid lobe, there is a 1.3 cm nodule. This nodule is spongiform. TI-RADS points: 0. TI-RADS category: TR1. This nodule is benign and no FNA or follow-up is necessary. There are 2 additional nodules in the left thyroid lobe, each measuring 0.5 and 0.6 cm. These have similar imaging characteristics. There is spongiform. TI-RADS points: 0. TI-RADS category: TR1. This nodule is benign and no FNA or follow-up is necessary. Homogeneous echotexture with normal vascularity. RIGHT THYROID LOBE: The right thyroid lobe measures 4.3 x 1.5 x 1.8 cm. Right thyroid nodule in the interpolar region measures approximately 1.5 cm. This nodule is mixed cystic and solid, hyperechoic or isoechoic, [id number], smoothly marginated and contains no echogenic foci. TI-RADS points: 2. TI-RADS category: TR2. This nodule is not suspicious and no FNA or follow-up is necessary. Right thyroid nodule in the interpolar region more anteriorly measures approximately 1.5 cm. This nodule is spongiform. TI-RADS points: 0. TI-RADS category: TR1. This nodule is benign and no FNA or follow-up is necessary. In the right thyroid lobe, there is a 0.5 cm nodule. This nodule is spongiform. TI-RADS points: 0. TI-RADS category: TR1. This nodule is benign and no FNA or follow-up is necessary. ISTHMUS: The thyroid isthmus measures 0.3 cm. No thyroid nodules are present. US/Thyroid IMPRESSION: Benign and not suspicious thyroid nodules are identified bilaterally, similar to the prior examinations. No follow-up or FNA is required. Electronically Signed: Ronen Tello DO at 21:38 EST ,
== END | disposition home or self-care (01) ==
LOC: US 12:37
PROVIDERS: PCP Family Medicine; Referring Provider Surgery; Visit Provider Surgery
DX: E04.2 Nontoxic multinodular goiter (principal)
CPT/HCPCS: 76536

== ENCOUNTER → 2024-06-21 | Outpatient (CLI) | payer MEDICARE, BC, SELFPAY ==
[2024-06-21 10:59] LABS: AST(SGOT) 21 U/L (15-37); Alanine Aminotransfer ALT/SGPT 28 U/L (13-56); Albumin, Serum 3.7 g/dL (3.2-5.0); Alkaline Phosphatase 83 U/L (45-117); Bilirubin, Direct 0.16 mg/dL (0.00-0.30); Cholesterol 138 mg/dL (200); Free T3 2.2 pg/mL (2.18-3.98); Globulin 3.4 g/dL (2.2-4.2); High Density Lipoprotein 77 mg/dL; Protein, Total 7.1 g/dL (6.4-8.2); T4 Free Direct 1.11 ng/dL (0.76-1.46); Thyroid Stim Hormone (TSH) 0.284 uIU/mL (0.358-3.740); Triglycerides 90 mg/dL; Very Low Density Lipoprotein 18 mg/dL (5-40)
== END | disposition home or self-care (01) ==
LOC: MTLAB 08:33
PROVIDERS: PCP Family Medicine; Referring Provider Nurse Practitioner Family; Visit Provider Nurse Practitioner Family
DX: E03.9 Hypothyroidism, unspecified (principal)
CPT/HCPCS: 36415; 80061; 80076; 84439; 84443; 84481

== ENCOUNTER → 2024-06-29 | Outpatient (CLI) | payer MEDICARE, BC, SELFPAY ==
--- NOTE | 2024-06-29 12:31 | BI_ITS ---
PROCEDURE: SCRN MAMM (CAD)W/FAVIOLA BILAT REASON FOR EXAM: F, Age 79 y/o, no family history. Annual mammogram. TECHNIQUE: Bilateral screening digital breast tomosynthesis with 2D and 3D images. Computer aided detection. COMPARISON: Prior exam(s) dating back to April 28, 2023.. FINDINGS: There are scattered areas of fibroglandular density. Stable examination. No suspicious masses, areas of developing architectural distortion, or suspicious calcifications. BI/SCRN MAMM (CAD)W/FAVIOLA BILAT IMPRESSION: BI-RADS 1: NEGATIVE. RECOMMEND ANNUAL MAMMOGRAPHIC SCREENING. Follow-up code: Routine Follow-up The patient will be notified of the results by letter. Reading Location: [place] [address]
== END | disposition home or self-care (01) ==
LOC: OPBI 12:31
PROVIDERS: PCP Family Medicine; Referring Provider Family Medicine; Visit Provider Family Medicine
DX: Z12.31 Encounter for screening mammogram for malignant neoplasm of breast (principal)
CPT/HCPCS: 77063; 77067

== ENCOUNTER → 2024-11-10 | Outpatient (CLI) | payer MEDICARE, BC, SELFPAY ==
[2024-11-10 18:45] LABS: AST(SGOT) 27 U/L (<=31); Alanine Aminotransfer ALT/SGPT 23 U/L (<=34); Albumin, Serum 4.5 g/dL (3.4-4.8); Alkaline Phosphatase 82 U/L (35-104); Anion Gap 11 (5-15); BUN 9 mg/dL (4-19); BUN/Creat Ratio 15.6 RATIO (10-20); Calcium,Total 10.7 mg/dL (7.6-11.0); Carbon Dioxide 26.0 mmol/L (21.0-32.0); Chloride 105 mmol/L (98-108); Cholesterol 129 mg/dL (<=200); Globulin 2.4 g/dL (2.2-4.2); Glucose 118 mg/dL (70-99); Low Density Lipoprotein Calc. 49 mg/dL; Potassium 4.1 mmol/L (3.3-5.1); Triglycerides 55 mg/dL; Very Low Density Lipoprotein 11 mg/dL (5-40); cholesterol:hdl ratio screen 1.87
[2024-11-10 19:29] LABS: Free T3 2.6 pg/mL (2.18-3.98)
== END | disposition home or self-care (01) ==
LOC: MTLAB 14:37
PROVIDERS: PCP Family Medicine; Referring Provider Family Medicine; Visit Provider Family Medicine
DX: E03.9 Hypothyroidism, unspecified (principal); I10 Essential (primary) hypertension
CPT/HCPCS: 36415; 80053; 80061; 84439; 84443; 84481

== ENCOUNTER 2024-12-23 08:02 | Day surgery (SDC) | payer MEDICARE, BC, SELFPAY ==
--- NOTE | 2024-12-22 16:04 | PAT.ANE_ITS ---
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 When Was Last Pacemaker Check QUESTION #4 FULL TEXT: You/Your Family Experience fever (hyperthermia) with Anesthesia Last Oral Intake Last Oral intake: Last Oral Intake NPO since Meds taken in AM with sips of water? Meds patient instructed to take am of surgery PONV PONV - photo tube assembler: PONV - photo tube assembler Female Yes 12/22/24 14:54 HX of Motion Sickness No 12/22/24 14:54 HX of N/V After Surgery No 12/22/24 14:54 Non-Smoker Yes 12/22/24 14:54 Duration of Surgery greater No 12/22/24 14:54 than 60 minutes Number of Risk Factors 2 12/22/24 14:54 PONV Score Moderate Risk 12/22/24 14:54 Height & Weight Height & Weight: Anesthesia: Height & Weight Height 4 ft 11 in 12/10/24 14:02 Respiratory Assessment Respiratory Assessment - photo tube assembler: Respiratory Tract Infection Hx - photo tube assembler Hx Respiratory Tract Infection No 12/22/24 14:54 STOP Sleep Apnea STOP Sleep Apnea - photo tube assembler: STOP Sleep Apnea - photo tube assembler Hx Hypertension Yes: controlled with meds 12/22/24 14:54 Hx Sleep Apnea No 12/22/24 14:54 CPAP BIPAP Do you snore loudly (louder No 12/22/24 14:54 than talking or can be heard Do you often feel tired/ No 12/22/24 14:54 fatigued/ sleepy during daytime? Has anyone observed you stop No 12/22/24 14:54 breathing during sleep? STOP Results Negative 12/22/24 14:54 QUESTION #5 FULL TEXT : Do you snore loudly (louder than talking or can be heard through closed doors)? Tobacco Use History Tobacco Use History - photo tube assembler: Tobacco Use History - photo tube assembler Tobacco Use Smoking Status Never smoker 12/22/24 14:54 Hx Tobacco Use No 12/22/24 14:54 Years Smoking Packs Smoked per Day Smoking Cessation Date was within the last 15 years Hx Smoking Cessation Date Hx Smoking Cessation Counseling Hematologic Medial History Hematologic Hx - photo tube assembler: Hematologic Medical Hx - lockstitch sleeve maker Hx of Blood Transfusion No 12/22/24 14:54 Hx of Transfusion in last 3 No 12/22/24 14:54 Months Date of Last Transfusion (if within last 3 months) Ever experience any problems No 12/22/24 14:54 with transfusion(s)? Specify any problems Hx of Preganancy in last 3 No 12/22/24 14:54 Months Nurse Filling Out Transfusion VCHRISTIN 12/22/24 14:54 & Questions: Date: 12/22/24 12/22/24 14:54 Time: 14:56 12/22/24 14:54 Patient unable to answer at this time (ie. confused, unrespo /Reproduction History /Reproductive History - photo tube assembler: /Reproductive Hx- photo tube assembler Hx Now No 12/22/24 14:54 Gestational Age (in weeks): EDC: Hx Hx Para Hx Section SAB No 12/22/24 14:54 [facility] Medical History (Updated 12/22/24 @ 14:54 by Vlema Mcconnell) Wears glasses Post-menopausal Thyroid disease Arthritis Excessive bleeding Difficulty swallowing Gastric reflux Non-smoker Chronic cough History of transesophageal echocardiography (ALBER) History of echocardiogram History of stress test Cardiology follow-up encounter History of irregular heartbeat Moderate tricuspid insufficiency Abnormal echocardiogram Moderate to severe mitral regurgitation COVID-19 Neck pain on right side Weakness Fatigue Leg cramps Multiple thyroid nodules Enlarged liver Elevated liver enzymes Essential hypertension Presence of stent in coronary artery (~09/25/11) Family history of ischemic heart disease Atherosclerotic heart disease of [place] coronary artery without angina pectoris Sinus bradycardia Left bundle branch block MCFP use of drug Hyperlipidemia Family history of hypertension Family history of premature coronary heart disease Edema Dyspnea, unspecified Angina pectoris Abnormal electrocardiogram Home Medications ?Medication ?Instructions ?Recorded ?Last Taken ?Type citalopram 20 mg tablet 20 mg PO DAILY 07/08/16 Unkn own History omega-3 fatty acids 1,000 mg 1,000 mg PO DAILY 2 Unknown History capsule (Fish Oil Concentrate) omeprazole 20 mg capsule,delayed 20 mg PO DAILY Unknown History release aspirin 81 mg tablet,delayed 81 mg PO DAILY 08/05/22 U nknown History release (Adult Aspirin Regimen) ascorbic acid (vitamin C) 500 mg 500 mg PO DAILY 06/24 Unknown History tablet (Vitamin C) multivitamin 1 tab PO DAILY 06/24/23 Unkn own History levothyroxine 75 mcg tablet 75 mcg PO QDAY 05/25/24 Un known History cholecalciferol (vitamin D3) 50 100 mcg PO DAILY 07/05 Unknown History mcg (2,000 unit) capsule atorvastatin 20 mg tablet 20 mg PO DAILY #90 tabs 07/11 10/03 Unknown Rx clopidogrel 75 mg tablet 75 mg PO DAILY #90 tabs 07/1112/17/24 Rx losartan 50 mg tablet 50 mg PO DAILY #90 tabs 07/11 10/03 Unknown Rx lactobacillus combination no.9 4 4,000 mmu cells PO QD AY 12/10/24 Unknown History billion cell capsule (Adult 50 Plus Probiotic) zinc glycinate 20 mg capsule 20 mg PO QDAY 12/10/24 Un known History Allergy/AdvReac Type Severity Reaction Status Date / Time amoxicillin (From Augmentin) Allergy Unknown swelling Verified 12/22/24 14:42 lips and tongue clavulanic acid (From Allergy Unknown swelling Verified 12/22/24 14:42 Augmentin) lips and tongue Family History Father Myocardial infarction Mother Sudden cardiac Brother Sudden cardiac Myocardial infarction Brother CAD (coronary artery disease) Hx of CABG Brother CAD (coronary artery disease) Hx of CABG Brother Presence of permanent cardiac pacemaker Surgical History (Updated 12/22/24 @ 14:54 by Velma Mcconnell) Hx of colonoscopy History of bilateral cataract extraction S/P thyroid biopsy (~11/2021) S/P thyroid biopsy (~2002) History of lateral meniscus repair of right knee Presence of coronary angioplasty implant and graft (~09/25/11) Hx of appendectomy History of tonsillectomy and adenoidectomy History of total hysterectomy History of cholecystectomy Social History Smoking Status: Never smoker alcohol intake: never substance use type: does not use caffeine: Yes Type: coffee and tea Number of servings: 1 Audit: Pertinent Findings Pertinent Findings Stress test pertinent findings: Stress test 11/10/2023. 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 Preserved ejection fraction. Echo (EF%) pertinent findings: Echo 08/27/2023. EF 60%. No regional wall motion abnormality noted. Consult pertinent findings: Cardiology note 07/05/2024. Patient with history of coronary artery disease status post percutaneous intervention in 2011 with repeat coronary angiography in 2017 showing patent stent to the proximal LAD. Continue medical management. Pharmacological stress Myoview done in November of last year was negative for inducible ischemia. Recommendation Anesthesia Recommendation Anesthesia recommendation: OPTIMIZED for anesthesia
[2024-12-23 08:40] VITALS: BP 122/55; PULSE 56; RESP 16; TEMP 37.1; O2SAT 100; BMI 25.4
[2024-12-23] MEDS: Lactated Ringers 1,000 ML 15 ML IV (08:44)
--- NOTE | 2024-12-23 09:05 | PCM.HP.BLA ---
History and Physical Date of Admission: 12/23/24 Date of Service: 12/10/24 MR#: [id number] Acct: [id number] Name: SALVADOR GUTIERREZ Rep #: [id number] : 1945 Provider: Dr. Jagdeep Rehman MD Age/Sex: 79/F Location: [facility] Status: Signed Intake Vital Signs 07/05/2507:34 12/10/2513:02 Height 4 ft 11 in 4 ft 11 in Weight: 134 lb 131 lb BMI 27.0 26.4 BP 126/58 H 135/63 H Blood Pressure Location Lt brachial Rt brachial Position Sitting Sitting Respiration 16 17 Pulse 59 L 54 L Pulse Source NIBP Monitor Pulse Oximetry (%) 98 Oxygen Delivery Method room air Intake Visit Reasons: COLONOSCOPY Chief Complaint: colonoscopy Is patient in pain?: No Allergies amoxicillin (From Augmentin) Allergy (Unknown, Verified 12/10/24 14:02) swelling lips and tongueclavulanic acid (From Augmentin) Allergy (Unknown, Verified 12/10/24 14:02) swelling lips and tongue Medications ?Medication ?Instructions ?Recorded ?Confirmed ?Type citalopram 20 mg tablet 20 mg PO DAILY 07/08/16 12/10/24 History omega-3 fatty acids 1,000 mg 1,000 mg PO DAILY 10/24/21 12/10/24 History capsule (Fish Oil Concentrate) omeprazole 20 mg capsule,delayed 20 mg PO DAILY 05/27/22 12/10/24 History release aspirin 81 mg tablet,delayed 81 mg PO DAILY 08/05/22 12/10/24 History release (Adult Aspirin Regimen) ascorbic acid (vitamin C) 500 mg 500 mg PO DAILY 06/24/23 12/10/24 History tablet (Vitamin C) multivitamin 1 tab PO DAILY 06/24/23 12/10/24 History levothyroxine 75 mcg tablet 75 mcg PO QDAY 05/25/24 12/10/24 History cholecalciferol (vitamin D3) 50 100 mcg PO DAILY 07/05/24 12/10/24 History mcg (2,000 unit) capsule atorvastatin 20 mg tablet 20 mg PO DAILY #90 tabs 08/03/24 12/10/24 Rx clopidogrel 75 mg tablet 75 mg PO DAILY #90 tabs 08/03/24 12/10/24 Rx losartan 50 mg tablet 50 mg PO DAILY #90 tabs 08/03/24 12/10/24 Rx lactobacillus combination no.9 4 4,000 mmu cells PO QDAY 12/10/24 12/10/24 History billion cell capsule (Adult 50 Plus Probiotic) zinc glycinate 20 mg capsule 20 mg PO QDAY 12/10/24 12/10/24 History Have you fallen in the past year?: No PFSH Medical History Abnormal echocardiogram Abnormal electrocardiogram Angina pectoris Atherosclerotic heart disease of [place] coronary artery without angina pectoris COVID-19 Dyspnea, unspecified Edema Elevated liver enzymes Enlarged liver Essential hypertension Family history of hypertension Family history of ischemic heart disease Family history of premature coronary heart disease Fatigue Hyperlipidemia Left bundle branch block Leg cramps 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 carman use of drug Moderate to severe mitral regurgitation Moderate tricuspid insufficiency Multiple thyroid nodules Neck pain on right side Presence of stent in coronary artery (~09/25/11) Sinus bradycardia Weakness Surgical History History of bilateral cataract extraction S/P thyroid biopsy (~11/2021) S/P thyroid biopsy (~2002) History of lateral meniscus repair of right knee Presence of coronary angioplasty implant and graft (~09/25/11) Hx of appendectomy History of tonsillectomy and adenoidectomy History of total hysterectomy History of cholecystectomy Family History Father Myocardial infarctionMother Sudden cardiac deathBrother Sudden cardiac Myocardial infarctionBrother CAD (coronary artery disease) Hx of CABGBrother CAD (coronary artery disease) Hx of CABGBrother Presence of permanent cardiac pacemaker Social History Smoking Status: Never smoker alcohol intake: never substance use type: does not use caffeine: Yes Type: coffee and tea Number of servings: 1 HPI HPI HPI: Patient is a 79-year-old female who presents for need to schedule screening colonoscopy secondary to recommendation for tighter screening given significant family history. They are referred for surgical consultation from Dr. Blum. Patient shares that she has a brother that was diagnosed with colon cancer in his 50s as well as a niece who was 50 when she also underwent resection for a colon cancer. She notes a second brother has a history of polyps. Her last colonoscopy was completed 5 years ago and was unremarkable and his findings. She has that she has never personally been diagnosed with colon polyps. She does admit to some chronic constipation and states that she can go almost a week without a bowel movement. To try to manage this constipation she states that she takes Metamucil rather regularly but freely admits that she has a hard time consuming enough water and estimates that her daily water intake?even with intentional effort?is probably 30 ounces daily. They have not noticed recent bleeding or dark stools. The patient's weight is stable. The patient is prescribed clopidogrel for a history of coronary artery disease through the [facility]. Relevant prior abdominal surgical history includes: Appendectomy and cholecystectomy Patient does have a significant history of GERD. She states that she had a real bad episode prior to seeing her PCP and even consider going to urgent care over this episode, however, she finally found relief through eating some soda crackers. She confirms she takes omeprazole daily. She denies any symptoms since this experience approximately 1 month ago. She has a history of EGD exam in [address] Tineo of gastroenterology after she presented to the hospital with evidence of a GI bleed. She recalls no cause was ever given for a bleed and denies any history of upper GI ulcers. ROS General General: Yes fatigue; No weight change, appetite, colon cancer, breast cancer or weakness HEENT HEENT: No difficulty swallowing, eye injury, eye surgery, swollen glands or hoarseness Endo Endocrine: Yes thyroid disease; No diabetes mellitus, thyroid cancer, Hair loss, heat intolerance or cold intolerance Musc Musculoskeletal: Yes arthritis; No back problems, rheumatoid arthritis, gout or joint pain Cardio Cardiovascular: Yes high blood pressure and heart stent; No murmur, pacemaker, heart disease, atrial fibrillation, heart attack, palpitations, shortness of breath with exertion or chest pain Psych Psychiatric: Yes anxiety; No depression or hearing voices Resp Respiratory: Yes shortness of breath, No sleep apnea, No cough, No COPD, No asthma, No emphysema and No wheezing Gastro Gastrointestinal: No abdominal pain, No nausea or vomiting, No diarrhea, Yes constipation, No blood in stool, Yes acid reflux, No hemorrhoids, No ulcers, No gallbladder problem and No black,tarry stools Marek Hematologic: Yes blood thinners, No blood disorders, No bleeding, No anemia and No blood clots Neuro Neurologic: No weakness Exam Const General: cooperative and comfortable Other: Pleasant Resp Effort & Inspection: normal respiratory effort GI Other: Well-healed incisions from prior appendectomy and hysterectomy (both completed open fashion). Nondistended, soft, patient describes discomfort with palpation bilateral lower abdominal quadrants but denies tenderness Assessment and Plan Assessment and Plan (1) Encounter for screening for malignant neoplasm of colon: Status: Acute Comment: Patient is a 79-year-old female who presents for screening colonoscopy given a high risk of colon cancer secondary to her family history of multiple individuals that were diagnosed and treated for colon cancer in their 50s. Personally, Ms. Gutierrez has no history of colonoscopy findings. She appears to have a very stable experience with constipation. We discussed this experience at some length today and identified that she fairly routinely has suboptimal fluid intake through her day. I have challenged her to reconsider this position and try other means of increasing her water intake (potential additives). Will plan for colonoscopy but she is due to go for international travel next month so this exam would likely have to wait until February 2025. I discussed that she will require a prep for the day of the procedure as well as have a lifter/driver to and from the procedure. Lastly, she will require a hold of her Plavix in the event biopsy is indicated with exam Plan: ? Plan will be to complete colonoscopy likely in February 2025 under local MAC. Pre-procedure prep discussed and paper instructions provided. Patient is also made aware that she will need to have a lifter/driver with her the day of the procedure. ? Patient require 5-day hold of her Plavix in anticipation of this procedure. Will see clearance with [facility]. (2) Constipation: Status: Acute (3) Family history of malignant neoplasm of colon in first degree relative diagnosed when younger than 60 years of age: Status: Acute I have examined the patient and the H&P has been reviewed. There are no clinical changes since date of exam. Patient does confirm she held her Plavix the last 5 days for today's procedure and completed 2-day bowel prep. She reports that her output is now clear but orange in color. Abdominal exam is benign. She denies any questions for today's procedure. Proceed to endoscopy suite for planned colonoscopy.
--- NOTE | 2024-12-23 09:09 | PRE.ANES_ITS ---
ASA Classification* ASA Classification ASA Classification: 3 Assessment & Plan Anesthesia* Anesthesia Assessment Anesthesia Assessment: Discussed sedation and/or anesthesia options, risks, benefits, and alternatives with patient/parents/legal guardian/POA. Questions invited. The patient/parents/legal guardian/POA seems to understand and agrees to proceed with anesthesia plan. Reviewed the physical assessment, medical history, allergy history and patient home medications list prior to surgery/procedure/anesthetic and documented any changes. Performed airway and anesthesia risk assessments. Anesthesia Type Anesthesia Type: MAC History Source History Obtained from:: Patient and Chart Anesthesia Focused Assessment* Temperature: 98.7 F Pulse Rate: 56 Blood Pressure: 122/55 Respiratory Rate: 16 Pulse Ox: 100 Oxygen Delivery Method: Room Air Airway Assessment Mouth opens: >3 cm Mallampati Score: I Teeth Condition: Caps/Crowns (Patient has multiple crowns. They are tight.) Neck Range of motion (ROM): Limited ROM (Somewhat Decreased) Comment: Short thyromental distance. Labs Anesthesia Preop lab: CBC WBC 6.0 K/mm3 (4.4-11.0) 10/20/23 10:59 10/20/23 RBC 4.32 M/mm3 (4.2-5.4) 10/20/23 10:59 10/20/23 Hgb 13.5 g/dL (12.0-15.0) 10/20/23 10:59 10/20/23 Hct 41.5 % (37-47) 10/20/23 10:59 10/20/23 Plt Count 245 K/mm3 (150-450) 10/20/23 10:59 10/20/23 CHEMISTRY Potassium 4.1 mmol/L (3.3-5.1) 11/10/24 14:39 11/10/24 Sodium 141 mmol/L (133-145) 11/10/24 14:39 11/10/24 BUN 9 mg/dL (4-19) 11/10/24 14:39 11/10/24 Creatinine 0.57 mg/dL (0.70-1.20) L 11/10/24 14:39 Glucose 118 mg/dL (70-99) H 11/10/24 14:39 11/10/24 TSH 0.176 uIU/mL (0.300-4.200) L 11/10/24 14:39 COAG PT 12.0 SECONDS (11.7-14.9) 06/27/16 13:59 Pre-Assessment Diagnosis/Proposed Procedure Planned Operative Procedure(s): COLONOSCOPY Anesthesia History Anesthesia History - photographer's assistant: Anesthesia History - photographer's assistant Hx Hospitalization No 12/22/24 14:54 Any Problems With Anesthesia Yes: 1979' EPISODE X1 POST 12/22/24 14:54 OP, NONE SINCE, SMALL AIRWAY , HARD INTUBATION Cholinesterase deficiency No 12/22/24 14:54 You/Your Family Experience No 12/22/24 14:54 fever (hyperthermia) with Relationship Recent Exposure to Contagious No 12/23/24 08:40 Disease Does patient have nerve No 12/22/24 14:54 stimulator Patient instructed to have device shut off --Does patient have Pacemaker No 12/23/24 08:40 or ICD? When Was Last Pacemaker Check QUESTION #4 FULL TEXT: You/Your Family Experience fever (hyperthermia) with Anesthesia Last Oral Intake Last Oral intake: Last Oral Intake NPO since 06:15 12/23/24 08:40 Meds taken in AM with sips of Yes 12/23/24 08:40 water? Meds patient instructed to take am of surgery Any additional information?: Yes NPO since: 06:15 (Patient had water with her a.m. meds at 6:15 AM) Meds taken in AM with sips of water?: Yes PONV PONV - photographer's assistant: PONV - photographer's assistant Female Yes 12/22/24 14:54 HX of Motion Sickness No 12/22/24 14:54 HX of N/V After Surgery No 12/22/24 14:54 Non-Smoker Yes 12/22/24 14:54 Duration of Surgery greater No 12/22/24 14:54 than 60 minutes Number of Risk Factors 2 12/22/24 14:54 PONV Score Moderate Risk 12/22/24 14:54 Height & Weight Height & Weight: Anesthesia: Height & Weight Height 4 ft 11 in 12/23/24 08:40 Weight: 57.1 kg 12/23/24 08:40 Body Mass Index (BMI) 25.4 12/23/24 08:40 Respiratory Assessment Respiratory Assessment - photographer's assistant: Respiratory Tract Infection Hx - photographer's assistant Hx Respiratory Tract Infection No 12/22/24 14:54 STOP Sleep Apnea STOP Sleep Apnea - photographer's assistant: STOP Sleep Apnea - photographer's assistant Hx Hypertension Yes: controlled with meds 12/22/24 14:54 Hx Sleep Apnea No 12/22/24 14:54 CPAP BIPAP Do you snore loudly (louder No 12/22/24 14:54 than talking or can be heard Do you often feel tired/ No 12/22/24 14:54 fatigued/ sleepy during daytime? Has anyone observed you stop No 12/22/24 14:54 breathing during sleep? STOP Results Negative 12/22/24 14:54 QUESTION #5 FULL TEXT : Do you snore loudly (louder than talking or can be heard through closed doors)? Tobacco Use History Tobacco Use History - photographer's assistant: Tobacco Use History - photographer's assistant Tobacco Use Smoking Status Never smoker 12/22/24 14:54 Hx Tobacco Use No 12/22/24 14:54 Years Smoking Packs Smoked per Day Smoking Cessation Date was within the last 15 years Hx Smoking Cessation Date Hx Smoking Cessation Counseling Hematologic Medial History Hematologic Hx - photographer's assistant: Hematologic Medical Hx - scanning tech Hx of Blood Transfusion No 12/22/24 14:54 Hx of Transfusion in last 3 No 12/22/24 14:54 Months Date of Last Transfusion (if within last 3 months) Ever experience any problems No 12/22/24 14:54 with transfusion(s)? Specify any problems Hx of Preganancy in last 3 No 12/22/24 14:54 Months Nurse Filling Out Transfusion VCHRISTIN 12/22/24 14:54 & Questions: Date: 12/22/24 12/22/24 14:54 Time: 14:56 12/22/24 14:54 Patient unable to answer at this time (ie. confused, unrespo /Reproduction History /Reproductive History - photographer's assistant: /Reproductive Hx- photographer's assistant Hx Now No 12/22/24 14:54 Gestational Age (in weeks): EDC: Hx Hx Para Hx Section SAB No 12/22/24 14:54 Active Medications Active Medications: Current Medications Generic Name Dose Route Start Last Admin Trade Name Freq PRN Reason Stop Dose Admin Lactated Ringer's 1,000 mls @ 15 mls/hr 12/23/24 08:15 12/23/24 08:44 IV 15 mls/hr .Q48H ZAK Administration PFSH Medical History Wears glasses Post-menopausal Thyroid disease Arthritis Excessive bleeding Difficulty swallowing Gastric reflux Non-smoker Chronic cough History of transesophageal echocardiography (ALBER) History of echocardiogram History of stress test Cardiology follow-up encounter History of irregular heartbeat Moderate tricuspid insufficiency Abnormal echocardiogram Moderate to severe mitral regurgitation COVID-19 Neck pain on right side Weakness Fatigue Leg cramps Multiple thyroid nodules Enlarged liver Elevated liver enzymes Essential hypertension Presence of stent in coronary artery (~09/25/11) Family history of ischemic heart disease Atherosclerotic heart disease of [place] coronary artery without angina pectoris Sinus bradycardia Left bundle branch block 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 Hyperlipidemia Family history of hypertension Family history of premature coronary heart disease Edema Dyspnea, unspecified Angina pectoris Abnormal electrocardiogram Home Medications ?Medication ?Instructions ?Recorded ?Last Taken ?Type citalopram 20 mg tablet 20 mg PO DAILY 07/08/16 Unkn own History omega-3 fatty acids 1,000 mg 1,000 mg PO DAILY 2 12/20/24 History capsule (Fish Oil Concentrate) omeprazole 20 mg capsule,delayed 20 mg PO DAILY Unknown History release aspirin 81 mg tablet,delayed 81 mg PO DAILY 08/05/22 0 12/22/24 History release (Adult Aspirin Regimen) ascorbic acid (vitamin C) 500 mg 500 mg PO DAILY 06/2412/20/24 History tablet (Vitamin C) multivitamin 1 tab PO DAILY 06/24/23 Unkn own History levothyroxine 75 mcg tablet 75 mcg PO QDAY 05/25/24 06:15 History cholecalciferol (vitamin D3) 50 100 mcg PO DAILY 07/05 Unknown History mcg (2,000 unit) capsule atorvastatin 20 mg tablet 20 mg PO DAILY #90 tabs 07/11 10/03 Unknown Rx clopidogrel 75 mg tablet 75 mg PO DAILY #90 tabs 07/1112/17/24 Rx losartan 50 mg tablet 50 mg PO DAILY #90 tabs 07/1112/23/24 06:15 Rx lactobacillus combination no.9 4 4,000 mmu cells PO QD AY 12/10/24 12/20/24 History billion cell capsule (Adult 50 Plus Probiotic) zinc glycinate 20 mg capsule 20 mg PO QDAY 12/10/24 History Allergy/AdvReac Type Severity Reaction Status Date / Time amoxicillin (From Augmentin) Allergy Unknown swelling Verified 12/23/24 08:38 lips and tongue clavulanic acid (From Allergy Unknown swelling Verified 12/23/24 08:38 Augmentin) lips and tongue Family History Father Myocardial infarction Mother Sudden cardiac Brother Sudden cardiac Myocardial infarction Brother CAD (coronary artery disease) Hx of CABG Brother CAD (coronary artery disease) Hx of CABG Brother Presence of permanent cardiac pacemaker Surgical History Hx of colonoscopy History of bilateral cataract extraction S/P thyroid biopsy (~11/2021) S/P thyroid biopsy (~2002) History of lateral meniscus repair of right knee Presence of coronary angioplasty implant and graft (~09/25/11) Hx of appendectomy History of tonsillectomy and adenoidectomy History of total hysterectomy History of cholecystectomy Social History Smoking Status: Never smoker alcohol intake: never substance use type: does not use caffeine: Yes Type: coffee and tea Number of servings: 1 Review of Systems (Anesthesia) ROS Narrative System reviewed and no additional complaints, except as documented.
[2024-12-23 09:18] VITALS: BP 122/55; PULSE 56; RESP 16; TEMP 37.1; O2SAT 100
[2024-12-23 10:00] VITALS: BP 112/54; BP 122/55; BP 125/58; PULSE 65; PULSE 67; RESP 16; TEMP 36.4; O2SAT 100
--- NOTE | 2024-12-23 10:05 | PCM.POST.ANE ---
Anesthesia: Postop Eval I Current Vital Signs Temperature: 97.5 F Pulse Rate: 67 Blood Pressure: 125/58 Respiratory Rate: 16 Pulse Ox: 100 Oxygen Delivery Method: Room Air Assessment Airway patent: Yes Spontaneous unlabored respirations: Yes Mental status: Awake and Calm nausea: No Vomiting: No Anesthesia Complication: No Fluid Hydration Crystalloid volume administer (ml): 800 Total IV fluid infused: 800 Progress Note Anesthesia document: Postop Eval 1 completed: Yes
[2024-12-23 10:06] VITALS: BP 125/58; PULSE 67; RESP 16; TEMP 36.4; O2SAT 100
--- NOTE | 2024-12-23 10:06 | OP.COLON_ITS ---
Patient Name: Doris Douglas Procedure Date: 12/23/2024 9:09 AM Date of : 1945 Age: 79 Procedure: Colonoscopy Indications: Screening in patient at increased risk: Family history of 1st-degree relative with colorectal cancer Providers: Jagdeep Rehman MD Referring MD: Mushtaq Blum MD Medicines: See the Anesthesia note for documentation of the administered medications Patient Profile: Refer to note in patient chart for documentation of history and physical. Last Colonoscopy: 3 years ago. Complications: No immediate complications. Estimated blood loss: None. Procedure: Pre-Anesthesia Assessment: - The heart rate, respiratory rate, oxygen saturations, blood pressure, adequacy of pulmonary ventilation, and response to care were monitored throughout the procedure. After I obtained informed consent, the scope was passed under direct vision. Throughout the procedure, the patient's blood pressure, pulse, and oxygen saturations were monitored continuously. The pediatric colonoscope was introduced through the anus and advanced to the cecum, identified by the appendiceal orifice, IC valve and transillumination. The colonoscopy was somewhat difficult due to significant looping and a tortuous colon. Successful completion of the procedure was aided by applying abdominal pressure. The patient tolerated the procedure well. Scope In: 9:33:48 AM Scope Withdrawal Time 0 hours 8 minutes 41 seconds Scope Out: 9:55:16 AM Total Procedure Duration Time 0 hours 21 minutes 28 seconds Findings: The perianal and digital rectal examinations were normal. Pertinent negatives include normal sphincter tone. A few large-mouthed diverticula were found in the sigmoid colon and distal sigmoid colon. No biopsies or other specimens were collected for this exam. The exam was otherwise without abnormality on direct and retroflexion views. Impression: - Diverticulosis in the sigmoid colon and in the distal sigmoid colon. No specimens collected. - The examination was otherwise normal on direct and retroflexion views. Recommendation: - Discharge patient to home (via wheelchair). - Resume previous diet today. - Resume Plavix (clopidogrel) at prior dose tomorrow. Refer to managing physician for further adjustment of therapy. - Telephone my office for study results in 1 week. - Repeat colonoscopy in 5 years for screening purposes. Procedure Code(s): --- Professional --- G0105, Colorectal cancer screening; colonoscopy on individual at high risk Diagnosis Code(s): --- Professional --- Z80.0, Family history of malignant neoplasm of digestive organs K57.30, Diverticulosis of large intestine without perforation or abscess without bleeding CPT copyright 2021 [employer]. All rights reserved. The codes documented in this report are preliminary and upon refrigerator crater review may be revised to meet current compliance requirements. Jagdeep Rehman MD 12/23/2024 10:06:10 AM This report has been signed electronically. Number of Addenda: 0 Note Initiated On: 12/23/2024 9:09 AM
--- NOTE | 2024-12-23 10:06 | OP.PROVAT_ITS ---
12/23/2024 Mushtaq Blum MD [address] [place] [address] Re : Colonoscopy procedure for Doris Misael Dear Dr. Blum This procedure was performed on December. My impressions and recommendations are as follows: Impressions : - Diverticulosis in the sigmoid colon and in the distal sigmoid colon. No specimens collected. - The examination was otherwise normal on direct and retroflexion views. Recommendations : - Discharge patient to home (via wheelchair). - Resume previous diet today. - Resume Plavix (clopidogrel) at prior dose tomorrow. Refer to managing physician for further adjustment of therapy. - Telephone my office for study results in 1 week. - Repeat colonoscopy in 5 years for screening purposes. My findings are described in the full procedure note, which is enclosed. If I can be of further assistance, please feel free to contact me at Doctor phone number(s): , Work: . Sincerely, Jagdeep Rehman MD 12/23/2024 10:06:10 AM This report has been signed electronically.
[2024-12-23 10:10] VITALS: BP 115/53; BP 122/55; PULSE 72; RESP 16; TEMP 36.4; O2SAT 100
[2024-12-23 10:29] VITALS: BP 122/55
== END 2024-12-23 10:45 | disposition home or self-care (01) ==
LOC: EN 08:03 → AC 08:04
PROVIDERS: PCP Family Medicine; Referring Provider Family Medicine; Visit Provider Surgery
PROC: 0DJD8ZZ Inspection of Lower Intestinal Tract, Via Natural or Artificial Opening Endoscopic (ICD-10-PCS; CPT 45378; principal; 2024-12-23 08:55)
DX: Z12.11 Encounter for screening for malignant neoplasm of colon (principal); E78.5 Hyperlipidemia, unspecified; K21.9 Gastro-esophageal reflux disease without esophagitis; I10 Essential (primary) hypertension; K57.30 Diverticulosis of large intestine without perforation or abscess without bleeding; I25.10 Atherosclerotic heart disease of native coronary artery without angina pectoris; Z79.899 Other long term (current) drug therapy; Z80.0 Family history of malignant neoplasm of digestive organs; Z87.19 Personal history of other diseases of the digestive system
CPT/HCPCS: G0121; J2405

== ENCOUNTER → 2025-02-07 | Outpatient (CLI) | payer MEDICARE, BC, SELFPAY ==
--- OUTSIDE RECORDS SUMMARY | 2024-07-02 14:56 | XMS RPT_ITS ---
Author Name Auto Generated Organization [facility] Care Team Providers Care Business Process Manager Name Role Phone GIL ROSE Primary Care Unavailable RAQUEL LARA JR. Attending Unavailable PROBLEMS DATE TYPE CONDITION / CODE ATTENDING STATUS KAUR RCE 07/02/2024 Admitting diagnosis Nail Problem / UNK(Unknown) RAQUEL LARA JR. Active [facility] PROCEDURES No Procedure Records Found RESULTS PROGRESS Observed: 07/02/2024 2:35 PM Status: COMPLETED Source: [facility] Chief Complaint Patient presents with Nail Problem Pt C/O terry great toe nail pain with ambulation. Pt denies known injury x 3 months Patient is a pleasant 79-year-old female who comes in today with concern for ingrown nails. She states that her left and right great toenails are sore. Worried that they may be ingrown but quite mild. No trauma. Past Medical History: Diagnosis Date Arthritis Callus of foot 03/26/2019 Cataract Elevated liver enzymes Ganglion cyst of foot 10/25/2020 Headache Heart disease High cholesterol Hyperkeratosis 06/25/2019 right foot Hypertension Liver disease Right foot pain 03/26/2019 Thyroid disease Varicose vein of leg Past Surgical History: Procedure Laterality Date APPENDECTOMY N/A 05/12/1961 ARTHROSCOPY KNEE N/A 05/12/2018 CHOLECYSTECTOMY N/A 05/12/1996 HYSTERECTOMY N/A 05/12/1982 MENISCECTOMY N/A 05/12/2014 STENT PLACEMENT 2012 TONSILLECTOMY N/A 05/12/1975 TUMOR REMOVAL N/A 05/12/2010 tumor removed form toe TUMOR REMOVAL N/A 05/12/1981 wart removal vulva N/A 05/12/1987 WRIST SURGERY N/A 05/12/2016 Social History Socioeconomic History Marital status: Tobacco Use Smoking status: Never Smokeless tobacco: Never Vaping Use Vaping status: Never Used Substance and Sexual Activity Alcohol use: Never Drug use: Never Review of Systems Physical Exam Patient is a pleasant 79-year-old female AOx3. Vascular: DP PT pulses are easily palpable 2-4. CFT is fair no edema. Derm: No erythema no open wounds no ulcers no rashes no deep nodules. Neuro: Light touch is normal. Musculoskeletal: Muscle strength is 5 out of 5. Can easily wiggle toes any clicking or catching. Minimal ingrowing to the left and right nail. Impression/Plan Problem List Items Addressed This Visit None Patient is a pleasant 79-year-old female with very minimal ingrowing left and right great toenail. As a courtesy did help cut this free. It for comfort at home can apply topical bacitracin and gauze. Otherwise nothing required. Follow-up as needed for this any new issues. AUTHENTICATED BY RAQUEL LARA JR., ON 07/02/2024 14:37:41 ALLERGIES DATE TYPE / CODE NAME / CODE REACTION SEVERITY SOURCE 04/23/2021 DRUG INGREDI/[id number] (SNOMED CT) AMOXICILLIN Swelling [facility] 04/23/2021 DRUG INGREDI/[id number] (SNOMED CT) CLAVULANIC ACID Swelling [facility] ENCOUNTERS ADMIT/DISCHARGE ACCOUNT NUMBER ADMITTING ENCOUNTER CLASS LOCATION SOURCE 07/02/2024/ 5 [id number] Ambulatory Building:[facility] PAYERS ENCOUNTER GUARANTOR PAYER SUBSCRIBER SOURCE 07/02/2024 SALVADOR ENGLISH: [id number] [place], [place] [address]Kwb: (HP) Primary Insurance:MEDICARE Policy Number: [id number] ve Date:[id number] J15 PART A CLAIMSPO [facility] [id number], [place] [address]BV: [place] ENGLISH: [id number] [place], [place] [address]Mxh: () [facility] 07/02/2024 Secondary Insurance:ANTHEMPo licy Number: [id number] lala Date:2720-21-72[address], [place] [address]TD: SALVADOR SPEARSB: [id number] [place], [place] [address]Gib: () [facility]
[2025-02-07 16:07] LABS: Anion Gap 12 (5-15); BUN 11 mg/dL (4-19); BUN/Creat Ratio 17.7 RATIO (10-20); Calcium,Total 11.2 mg/dL (7.6-11.0); Carbon Dioxide 25.0 mmol/L (21.0-32.0); Chloride 104 mmol/L (98-108); Cholesterol 161 mg/dL (<=200); Free T3 2.5 pg/mL (2.18-3.98); Glucose 84 mg/dL (70-99); Low Density Lipoprotein Calc. 72 mg/dL; Potassium 4.1 mmol/L (3.3-5.1); Triglycerides 64 mg/dL; Very Low Density Lipoprotein 13 mg/dL (5-40); cholesterol:hdl ratio screen 2.12
== END | disposition home or self-care (01) ==
LOC: MFPLAB 11:57
PROVIDERS: PCP Family Medicine; Visit Provider Family Medicine
DX: E03.9 Hypothyroidism, unspecified (principal); I10 Essential (primary) hypertension
CPT/HCPCS: 36415; 80048; 80061; 84439; 84443; 84481

== ENCOUNTER → 2025-03-02 | Outpatient (CLI) | payer MEDICARE, BC, SELFPAY ==
--- NOTE | 2025-03-02 12:42 | RAD_ITS ---
PROCEDURE: ELBOW MIN 3 VIEWS 03/02/2025 REASON FOR EXAM: PAIN TECHNIQUE: Procedure Code: RADEL Modality: DX Procedure: ELBOW MIN 3 VIEWS Laterality: Left COMPARISON: None FINDINGS: There is no evidence of fracture or dislocation. There is no elbow joint effusion. There is no significant arthropathy. There are no significant soft tissue abnormalities. RAD/Elbow min 3 Views IMPRESSION: Normal left elbow. Reading Location: [place] [id number]
== END | disposition home or self-care (01) ==
LOC: MTRAD 12:41
PROVIDERS: PCP Family Medicine; Referring Provider Family Medicine; Visit Provider Family Medicine
DX: M25.522 Pain in left elbow (principal)
CPT/HCPCS: 73080

== ENCOUNTER → 2025-03-07 | Outpatient (CLI) | payer MEDICARE, BC, SELFPAY ==
--- NOTE | 2025-03-07 14:05 | RAD_ITS ---
PROCEDURE: FOOT MIN 3 VIEWS 03/07/2025 REASON FOR EXAM: PAIN TECHNIQUE: Procedure Code: RADFO Modality: DX Procedure: FOOT MIN 3 VIEWS Laterality: Right COMPARISON: None FINDINGS: Bones: Nondisplaced fracture is seen at the proximal metadiaphysis of the 5th metatarsal. The fracture line extends towards the metaphysis (between the location of a stress and a Mcneil fracture). Joints: Normal alignment. Soft tissues: Soft tissues are unremarkable. Other: No foreign body RAD/Foot min 3 Views IMPRESSION: Nondisplaced fracture proximal metadiaphysis 5th metatarsal. No displacement o r angulation Reading Location: [id number]
== END | disposition home or self-care (01) ==
LOC: MTRAD 14:04
PROVIDERS: PCP Family Medicine; Referring Provider Family Medicine; Visit Provider Family Medicine
DX: M79.671 Pain in right foot (principal)
CPT/HCPCS: 73630

== ENCOUNTER → 2025-04-04 | Outpatient (CLI) | payer MEDICARE, BC, SELFPAY ==
[2025-04-04 12:57] LABS: Anion Gap 14 (5-15); BUN 12 mg/dL (4-19); BUN/Creat Ratio 17.6 RATIO (10-20); Calcium,Total 10.5 mg/dL (7.6-11.0); Carbon Dioxide 23.9 mmol/L (21.0-32.0); Chloride 104 mmol/L (98-108); Glucose 114 mg/dL (70-99); Potassium 3.9 mmol/L (3.3-5.1); Vitamin D,25 Hydroxy 52.3 ng/mL (30-100)
== END | disposition home or self-care (01) ==
LOC: MTLAB 10:46
PROVIDERS: PCP Family Medicine; Referring Provider Podiatrist; Visit Provider Podiatrist
DX: S92.901A Unspecified fracture of right foot, initial encounter for closed fracture (principal); X58.XXXA Exposure to other specified factors, initial encounter
CPT/HCPCS: 36415; 80048; 82306